=== PATIENT | male | born 1950 | race Native Hawaiian/Other Pacific Islander ===

== ENCOUNTER 2016-08-22 07:37 | Outpatient (CLI) | payer MEDICAID | END 2016-08-22 07:38 | disposition home or self-care (01) | DX: I10 Essential (primary) hypertension (principal); E78.5 Hyperlipidemia, unspecified; E11.9 Type 2 diabetes mellitus without complications ==

== ENCOUNTER 2016-11-17 07:41 | Outpatient (CLI) | payer MEDICAID | END 2016-11-17 07:42 | disposition home or self-care (01) | DX: E11.9 Type 2 diabetes mellitus without complications (principal) ==

== ENCOUNTER 2016-11-24 08:56 | Outpatient (CLI) | payer MEDICAID | END 2016-11-24 08:57 | disposition home or self-care (01) | DX: R39.11 Hesitancy of micturition (principal) ==

== ENCOUNTER 2017-02-24 11:02 | Outpatient (CLI) | payer MEDICAID ==
[2017-02-24 13:11] LABS: HEMOGLOBIN A1C 1.47 g/dL
== END 2017-02-24 11:03 | disposition home or self-care (01) ==
LOC: LAB.N 11:02
PROVIDERS: ATTEND Nurse Practitioner Gerontology
DX: E11.9 Type 2 diabetes mellitus without complications (principal)
CPT/HCPCS: 36415; 83036

== ENCOUNTER 2017-08-14 10:56 | Outpatient (CLI) | payer MEDICAID, MEDICARE ==
[2017-08-14 20:19] LABS: CALCIUM 9.6 mg/dL (8.5-10.3); CREATININE 0.9 mg/dL (0.6-1.2)
[2017-08-14 21:07] LABS: HEMOGLOBIN A1C 1.65 g/dL; HEMOGLOBIN A1C % 10.1 % (4.6-6.2)
== END 2017-08-14 10:57 | disposition home or self-care (01) ==
LOC: LAB.N 10:56
PROVIDERS: ATTEND Nurse Practitioner Gerontology
DX: E11.9 Type 2 diabetes mellitus without complications (principal); N40.0 Benign prostatic hyperplasia without lower urinary tract symptoms
CPT/HCPCS: 36415; 80048; 82043; 83036; 84153

== ENCOUNTER 2017-12-11 08:00 | Outpatient (CLI) | payer MEDICARE ==
[2017-12-11 14:50] LABS: HB2 TOTAL 19.5 g/dL; HEMOGLOBIN A1C 1.69 g/dL; HEMOGLOBIN A1C % 10.1 % (4.6-6.2)
== END 2017-12-11 08:01 | disposition home or self-care (01) ==
LOC: LAB.N 08:00
PROVIDERS: ATTEND Nurse Practitioner Gerontology
DX: E11.9 Type 2 diabetes mellitus without complications (principal)
CPT/HCPCS: 36415; 83036

== ENCOUNTER 2018-04-02 08:00 | Outpatient (CLI) | payer MEDICARE ==
[2018-04-02 12:24] LABS: ALBUMIN 4.3 g/dL (3.2-5.5); ALBUMIN/GLOBULIN RATIO 1.5 (1.0-2.2); ALKALINE PHOSPHATASE 64 IU/L (42-121); ALT ALANINE AMINOTRANSFERASE 23 IU/L (10-60); AST ASPARTATE AMINOTRANSFERASE 20 IU/L (10-42); BILIRUBIN,TOTAL 0.6 mg/dL (0.2-1.0); BUN - BLOOD UREA NITROGEN 15 mg/dL (6-20); CALCIUM 9.7 mg/dL (8.5-10.3); CARBON DIOXIDE - CO2 28 mmol/L (21-32); CHLORIDE 103 mmol/L (101-111); CHOLESTEROL 112 mg/dL; CREATININE 0.9 mg/dL (0.6-1.2); GFR - MDRD 85 (>89); GLUCOSE 178 mg/dL (70-100); HDL CHOLESTEROL 28 mg/dL; LDL CHOLESTEROL,CALCULATED 63 mg/dL; LDL/HDL RATIO 2.3 (<3.6); SODIUM 138 mmol/L (135-145); TOTAL PROTEIN 7.2 g/dL (6.7-8.2); VLDL CHOLESTEROL 21 mg/dL
[2018-04-02 12:35] LABS: PSA FREE 0.36 ng/mL (0.16-2.81); PSA TOTAL 2.24 ng/mL (0.000-2.000)
[2018-04-02 13:30] LABS: HB2 TOTAL 18.1 g/dL; HEMOGLOBIN A1C 1.43 g/dL; HEMOGLOBIN A1C % 9.4 % (4.6-6.2)
== END 2018-04-02 08:01 | disposition home or self-care (01) ==
LOC: LAB.N 08:00
PROVIDERS: ATTEND Nurse Practitioner Gerontology
DX: N40.0 Benign prostatic hyperplasia without lower urinary tract symptoms (principal); I10 Essential (primary) hypertension; E78.5 Hyperlipidemia, unspecified; E11.9 Type 2 diabetes mellitus without complications
CPT/HCPCS: 36415; 80053; 80061; 82043; 83036; 83721; 84154

== ENCOUNTER 2018-07-07 10:53 | Outpatient (CLI) | payer MEDICARE ==
[2018-07-07 19:23] LABS: HB2 TOTAL 18.9 g/dL; HEMOGLOBIN A1C 1.6 g/dL; HEMOGLOBIN A1C % 9.9 % (4.6-6.2)
== END 2018-07-07 10:54 | disposition home or self-care (01) ==
LOC: LAB.N 10:53
PROVIDERS: ATTEND Nurse Practitioner Gerontology
DX: E11.9 Type 2 diabetes mellitus without complications (principal)
CPT/HCPCS: 36415; 83036

== ENCOUNTER 2018-09-24 18:07 | Emergency (ER) | payer MEDICARE ==
[2018-09-24] MEDS ORDERED: ALBUTEROL NEB 2.5 MG/3 ML INH STA (21:05)
[2018-09-24] MEDS ORDERED: DEXAMETHASONE 10 MG/ML VIAL PO STA (21:05)
--- NOTE | 2018-09-24 21:05 | ED Physician Documentation ---
PD HPI URI - Stated complaint Stated Complaint: FLU SX - Chief complaint Chief Complaint: Resp - History obtained from History obtained from: Patient - Additional information Additional information: 68-year-old male presents the emergency department with almost 10 days of nasal congestion, cough, wheezing and general fatigue with fever. The patient's symptoms are steadily worsening the patient denies dyspnea on exertion or shortness of breath. No triggering factors. No relieving factors. No other associated symptoms Review of Systems Constitutional: reports: Fever, Chills, Myalgias Eyes: denies: Discharge Ears: denies: Ear pain Nose: denies: Congestion Throat: denies: Sore throat Cardiac: denies: Chest pain / pressure Respiratory: reports: Dyspnea, Wheezing GI: denies: Abdominal Pain Skin: denies: Rash Musculoskeletal: denies: Neck pain Immunocompromised: denies: Chemotherapy PD PAST MEDICAL HISTORY - Past Medical History Past Medical History: Yes Cardiovascular: Hypertension, High cholesterol Respiratory: None Neuro: None Endocrine/Autoimmune: Type 2 diabetes GI: None : None HEENT: None Psych: None Musculoskeletal: None Derm: None - Past Surgical History Past Surgical History: Yes General: Colonoscopy - Present Medications Home Medications: Ambulatory Orders Medication Instructions Recorded Confirmed Aspirin [Aspir 81] 81 mg PO DAILY 05/24/14 09/24/18 Glipizide 10 mg PO BID 05/24/14 09/24/18 Lisinopril 5 mg PO DAILY 05/24/14 09/24/18 Metformin HCl 1,000 mg PO BID 05/24/14 09/24/18 Albuterol Sulf [Ventolin Hfa 1 - 2 puffs INH Q4HR PRN #1 inhaler 09/24/18 Inhaler] Doxycycline Hyclate 100 mg PO BID #20 capsule 09/24/18 Insulin Aspart [NovoLOG] 5 unit SUBQ TIDWM 09/24/18 09/24/18 - Allergies Allergies/Adverse Reactions: Allergies Allergy/AdvReac Type Severity Reaction Status Date / Time No Known Drug Allergies Allergy Verified 09/24/18 18:21 - Social History Does the pt smoke?: No Smoking Status: Never smoker Does the pt drink ETOH?: No Does the pt have substance abuse?: No - Immunizations Immunizations are current?: No - POLST Patient has POLST: No PD ED PE NORMAL - General General: Alert and oriented X 3, No acute distress - HEENT HEENT: Atraumatic, PERRL, EOMI, Ears normal - Cardiac Cardiac: RRR, Strong equal pulses - Respiratory Respiratory: No respiratory distress. No: Clear bilaterally (Bilateral expiratory wheezing) - Derm Derm: Normal color - Extremities Extremities: No deformity - Neuro Neuro: Alert and oriented X 3, Normal speech - Psych Psych: Normal mood Results - Vitals Vitals: Vital Signs - 24 hr 09/24/18 09/24/18 18:20 20:34 Temperature 36.7 C Heart Rate 84 Respiratory 20 17 Rate Blood Pressure 143/86 H O2 Saturation 95 Oxygen O2 Source Room air - Rads (name of study) CXR Radiology: Final report received, See rad report (No evidence of focal pneumonia. Diffuse bilateral reticular interstitial opacities, which may represent changes from chronic fibrotic/interstitial lung disease. ) PD MEDICAL DECISION MAKING - ED course ED course: The patient's symptoms have been prolonged And are encroaching on 10 days, the patient has a history of lung disease and prior smoker. Given the duration of s ymptoms he will be started on a course of oral antibiotics. Presently, the patient appears appropriate for discharge and ongoing outpatient management. I discussed warning signs and recommended returning for any worsening or any concerns Departure - Departure Disposition: 01 Home, Self Care Clinical Impression: Acute bronchitis Qualifiers: Bronchitis organism: unspecified organism Qualified Code(s): J20.9 - Acute bronchitis, unspecified Condition: Good Instructions: ED Bronchitis Asthmatic Ch, ED Upper Resp Infec Abx Tx Follow-Up: Krissy Pan [employer] [Primary Care Provider] - Within 1 week (Please ask her to arrange for a follow-up chest x-ray once her symptoms resolved.) Prescriptions: Albuterol Sulf [Ventolin Hfa Inhaler] 1 - 2 puffs INH Q4HR PRN #1 inhaler PRN Reason: Shortness Of Air/Wheezing Doxycycline Hyclate 100 mg PO BID #20 capsule Comments: Please return to the emergency department for any worsening or any concerns
--- NOTE | 2018-09-24 21:11 | XRAY Report ---
Reason: cough, fever Procedure Date: 09/24/2018 Accession Number: [id number] / [id number] Procedure: XR - Chest 2 View X-Ray CPT Code: 66663 FULL RESULT: EXAM: CHEST RADIOGRAPHY EXAM DATE: 09/24/2018 08:48 PM. CLINICAL HISTORY: Cough, fever. COMPARISON: CHEST 2 VIEW PA/LAT 11/21/2014 7:30 PM. TECHNIQUE: 2 views. FINDINGS: Heart size is normal. Again seen are diffuse reticular interstitial opacities, which may represent changes from chronic fibrotic/interstitial lung disease. No focal consolidation. No pleural effusion or pneumothorax. Probable pectus excavatum deformity. IMPRESSION: No evidence of focal pneumonia. Diffuse bilateral reticular interstitial opacities, which may represent changes from chronic fibrotic/interstitial lung disease. RADIA
[2018-09-24] MEDS ORDERED: CHERRY SYRUP 10 ML UDC PO ONE (21:13)
[2018-09-24] MEDS ORDERED: DOXYCYCLINE 100 MG TABLET PO STA (21:15)
[2018-09-24] MEDS ORDERED: ALBUTEROL NEB 2.5 MG/3 ML INH ONE (21:30)
[2018-09-24 21:35] VITALS: BP 131/73
== END 2018-09-24 21:38 | disposition home or self-care (01) ==
LOC: ED 18:07
DX: J20.9 Acute bronchitis, unspecified (principal); Z87.891 Personal history of nicotine dependence; I10 Essential (primary) hypertension; E11.9 Type 2 diabetes mellitus without complications; Z79.4 Long term (current) use of insulin; Z79.82 Long term (current) use of aspirin
CPT/HCPCS: 71046; 94640; 94664; 99282; 99283; A9270

== ENCOUNTER 2018-10-15 08:00 | Outpatient (CLI) | payer MEDICARE ==
[2018-10-15 13:19] LABS: HB2 TOTAL 18.9 g/dL; HEMOGLOBIN A1C 1.65 g/dL; HEMOGLOBIN A1C % 10.1 % (4.6-6.2)
[2018-10-15 13:27] LABS: CHOL/HDL RATIO 4.2 (<5.0); CHOLESTEROL 133 mg/dL; HDL CHOLESTEROL 32 mg/dL; LDL CHOLESTEROL,CALCULATED 67 mg/dL; LDL/HDL RATIO 2.1 (<3.6); VLDL CHOLESTEROL 34 mg/dL
== END 2018-10-15 23:59 | disposition home or self-care (01) ==
LOC: LAB.N 08:00
PROVIDERS: ATTEND Nurse Practitioner Gerontology
DX: I10 Essential (primary) hypertension (principal); E11.9 Type 2 diabetes mellitus without complications; E78.5 Hyperlipidemia, unspecified
CPT/HCPCS: 36415; 80061; 83036; 83721

== ENCOUNTER 2019-01-27 08:00 | Outpatient (CLI) | payer MEDICARE ==
[2019-01-27 12:37] LABS: HB2 TOTAL 20.9 g/dL; HEMOGLOBIN A1C 1.62 g/dL; HEMOGLOBIN A1C % 9.2 % (4.6-6.2)
== END 2019-01-27 23:59 | disposition home or self-care (01) ==
LOC: LAB.N 08:00
PROVIDERS: ATTEND Nurse Practitioner Gerontology
DX: E11.9 Type 2 diabetes mellitus without complications (principal)
CPT/HCPCS: 36415; 83036

== ENCOUNTER 2019-07-18 09:12 | Outpatient (CLI) | payer MEDICARE ==
[2019-07-18 13:11] LABS: CALCIUM 9.8 mg/dL (8.5-10.3)
[2019-07-18 13:14] LABS: HEMOGLOBIN A1C 1.3 g/dL; HEMOGLOBIN A1C % 8.4 % (4.6-6.2)
== END 2019-07-18 23:59 | disposition home or self-care (01) ==
LOC: LAB.N 09:12
PROVIDERS: ATTEND Nurse Practitioner Gerontology
DX: E11.9 Type 2 diabetes mellitus without complications (principal)
CPT/HCPCS: 36415; 80048; 83036

== ENCOUNTER 2019-07-21 14:14 | Outpatient (CLI) | payer MEDICARE ==
--- NOTE | 2019-07-21 16:51 | XRAY Report ---
Reason: wheezing,cough Procedure Date: 07/21/2019 Accession Number: [id number] / [id number] Procedure: XRN - Chest 2 View X-Ray CPT Code: 45640 Final Report FULL RESULT: EXAM: CHEST RADIOGRAPHY EXAM DATE: 07/21/2019 02:31 PM. CLINICAL HISTORY: Wheezing,cough. COMPARISON: CHEST 2 VIEW 09/24/2018 8:33 PM. TECHNIQUE: 2 views. FINDINGS: Lungs/Pleura: Again seen are chronic appearing bilateral perihilar interstitial and reticular opacities. No focal opacities evident. No pleural effusion. No pneumothorax. Normal volumes. Mediastinum: Heart and mediastinal contours are unremarkable. Other: None. IMPRESSION: Chronic appearing bilateral perihilar interstitial and reticular opacities, suggestive of chronic interstitial lung disease versus interstitial/viral pneumonia. No focal pneumonia. RADIA
== END 2019-07-21 14:15 | disposition home or self-care (01) ==
LOC: DI.N 14:14
PROVIDERS: ATTEND Nurse Practitioner Gerontology
DX: R06.2 Wheezing (principal); R05 Cough
CPT/HCPCS: 71046

== ENCOUNTER 2019-12-22 07:00 | Outpatient (CLI) | payer MEDICARE ==
[2019-12-22 13:20] LABS: ALBUMIN 4.2 g/dL (3.2-5.5); ALBUMIN/GLOBULIN RATIO 1.3 (1.0-2.2); ALKALINE PHOSPHATASE 61 IU/L (42-121); ALT ALANINE AMINOTRANSFERASE 22 IU/L (10-60); AST ASPARTATE AMINOTRANSFERASE 17 IU/L (10-42); BILIRUBIN,TOTAL 0.9 mg/dL (0.2-1.0); BUN - BLOOD UREA NITROGEN 26 mg/dL (6-20); CALCIUM 9.6 mg/dL (8.5-10.3); CARBON DIOXIDE - CO2 23 mmol/L (21-32); CHLORIDE 101 mmol/L (101-111); CHOL/HDL RATIO 3.5 (<5.0); CHOLESTEROL 106 mg/dL; CREATININE 0.9 mg/dL (0.6-1.2); GLUCOSE 162 mg/dL (70-100); HDL CHOLESTEROL 30 mg/dL; LDL CHOLESTEROL,CALCULATED 55 mg/dL; LDL/HDL RATIO 1.8 (<3.6); SODIUM 134 mmol/L (135-145); TOTAL PROTEIN 7.5 g/dL (6.7-8.2); VLDL CHOLESTEROL 21 mg/dL
[2019-12-22 13:25] LABS: HB2 TOTAL 19.7 g/dL; HEMOGLOBIN A1C 1.62 g/dL; HEMOGLOBIN A1C % 9.7 % (4.6-6.2)
[2019-12-22 13:28] LABS: BASOPHILS # (AUTO) 0.1 10^3/uL (0.0-0.1); BASOPHILS % (AUTO) 0.6 %; EOSINOPHILS # (AUTO) 0.5 10^3/uL (0.0-0.7); EOSINOPHILS % (AUTO) 3.7 %; HGB - HEMOGLOBIN 18.1 g/dL (14.0-18.0); LYMPHOCYTES # (AUTO) 3.7 10^3/uL (1.5-3.5); LYMPHOCYTES % (AUTO) 30.1 %; MEAN CORPUSCULAR HEMOGLOBIN 29.2 pg (27.0-31.0); MEAN CORPUSCULAR HGB CONC 31.8 g/dL (32.0-36.0); MEAN CORPUSCULAR VOLUME 91.9 fL (80.0-94.0); MEAN PLATELET VOLUME 11.8 fL (7.4-11.4); MONOCYTES # (AUTO) 0.9 10^3/uL (0.0-1.0); MONOCYTES % (AUTO) 7.1 %; NEUTROPHILS # (AUTO) 7.1 10^3/uL (1.5-6.6); NEUTROPHILS % (AUTO) 57.8 %; PLT - PLATELET COUNT 245 10^3/uL (130-450); WHITE BLOOD COUNT 12.3 x10^3/uL (4.8-10.8)
[2019-12-22 13:40] LABS: CREATININE,URINE 31.9 mg/dL; MICROALBUM/CREATININE RATIO,UR 25.1 ug/mg (<30.0); MICROALBUMIN,URINE 0.8 mg/dL (0-300.0)
== END 2019-12-22 23:59 | disposition home or self-care (01) ==
LOC: LAB.WCP 07:00
PROVIDERS: ATTEND Family Medicine
DX: I10 Essential (primary) hypertension (principal); Z12.5 Encounter for screening for malignant neoplasm of prostate; E11.9 Type 2 diabetes mellitus without complications; E78.5 Hyperlipidemia, unspecified
CPT/HCPCS: 36415; 80053; 80061; 82043; 82570; 83036; 84443; 85025; G0103; 83721; 84153

== ENCOUNTER 2020-07-16 10:30 | Outpatient (CLI) | payer MEDICARE ==
[2020-07-16 12:20] LABS: CALCIUM 9.7 mg/dL (8.5-10.3); CREATININE 0.9 mg/dL (0.6-1.2)
[2020-07-16 12:53] LABS: HEMOGLOBIN A1c% 8.9 % (4.27-6.07)
== END 2020-07-16 10:31 | disposition home or self-care (01) ==
LOC: LAB.N 10:30
PROVIDERS: ATTEND Nurse Practitioner Family
DX: E11.9 Type 2 diabetes mellitus without complications (principal)
CPT/HCPCS: 36415; 80048; 83036

== ENCOUNTER 2020-09-24 19:36 | Observation (INO) | payer MEDICARE ==
[2020-09-24 20:06] LABS: BASOPHILS # (AUTO) 0.1 10^3/uL (0.0-0.1); BASOPHILS % (AUTO) 0.5 %; EOSINOPHILS # (AUTO) 0.4 10^3/uL (0.0-0.7); EOSINOPHILS % (AUTO) 2.4 %; HGB - HEMOGLOBIN 18.3 g/dL (14.0-18.0); LYMPHOCYTES # (AUTO) 4.9 10^3/uL (1.5-3.5); LYMPHOCYTES % (AUTO) 27.7 %; MEAN CORPUSCULAR HEMOGLOBIN 29.8 pg (27.0-31.0); MEAN CORPUSCULAR HGB CONC 32.7 g/dL (32.0-36.0); MEAN CORPUSCULAR VOLUME 91.1 fL (80.0-94.0); MEAN PLATELET VOLUME 10.8 fL (7.4-11.4); MONOCYTES # (AUTO) 1.2 10^3/uL (0.0-1.0); MONOCYTES % (AUTO) 6.6 %; NEUTROPHILS # (AUTO) 11.1 10^3/uL (1.5-6.6); NEUTROPHILS % (AUTO) 62.3 %; PLT - PLATELET COUNT 256 10^3/uL (130-450); RED BLOOD COUNT 6.15 10^6/uL (4.70-6.10); RED CELL DISTRIBUTION WIDTH 13.7 % (12.0-15.0); WHITE BLOOD COUNT 17.8 x10^3/uL (4.8-10.8)
[2020-09-24 20:12] LABS: ALBUMIN 4.4 g/dL (3.2-5.5); ALBUMIN/GLOBULIN RATIO 1.5 (1.0-2.2); BILIRUBIN,TOTAL 0.9 mg/dL (0.2-1.0); CALCIUM 9.6 mg/dL (8.5-10.3); TOTAL PROTEIN 7.4 g/dL (6.7-8.2)
--- NOTE | 2020-09-24 20:16 | XRAY Report ---
PROCEDURE: Chest 1 View X-Ray INDICATIONS: Chest pain TECHNIQUE: One view of the chest was acquired. COMPARISON: 07/21/2019 FINDINGS: Surgical changes and devices: None. Lungs and pleura: No pleural effusions or pneumothorax. Lungs are clear. Mediastinum: Mediastinal contours appear normal. Heart size is normal. Bones and chest wall: No suspicious bony lesions. Overlying soft tissues appear unremarkable. IMPRESSION: No acute cardiopulmonary abnormality. Reviewed by: Vinicius Anne on 09/24/2020 8:15 PM [facility] Approved by: Vinicius Anne on 09/24/2020 8:15 PM [facility] Station ID: [id number]
[2020-09-24] MEDS ORDERED: ASPIRIN CHEW 81 MG TABLET PO STA (21:38)
--- NOTE | 2020-09-24 21:39 | ED Physician Documentation ---
PD HPI CHEST PAIN - Stated complaint Stated Complaint: HIGH BP - Chief complaint Chief Complaint: Cardiac - History obtained from History obtained from: Patient - History of Present Illness Timing - onset: Today Timing - onset during: Rest Timing - duration: Days (1) Timing - details: Gradual onset Pain level max: 5 Pain level now: 0 Quality: Pressure, Tightness Location: Substernal Radiation: No: Jaw, Neck, Back, Abdominal, Left upper extremity, Right upper extremity Improved by: Nothing Worsened by: Other (nothing) Recently seen: Not recently seen Review of Systems Ten Systems: 10 systems reviewed and negative Constitutional: denies: Fever, Chills Throat: denies: Sore throat Cardiac: denies: Palpitations Respiratory: denies: Cough, Hemoptysis, Wheezing GI: denies: Vomiting, Diarrhea Skin: denies: Rash Musculoskeletal: denies: Neck pain, Back pain Neurologic: denies: Headache PD PAST MEDICAL HISTORY - Past Medical History Past Medical History: Yes Cardiovascular: Hypertension, High cholesterol Respiratory: None Neuro: None Endocrine/Autoimmune: Type 2 diabetes GI: None : None HEENT: None Psych: None Musculoskeletal: None Derm: None - Past Surgical History Past Surgical History: Yes General: Colonoscopy - Present Medications Home Medications: Ambulatory Orders Medication Instructions Recorded Confirmed Aspirin [Aspir 81] 81 mg PO DAILY 05/24/14 09/24/18 Glipizide 10 mg PO BID 05/24/14 09/24/18 Metformin HCl 1,000 mg PO BID 05/24/14 09/24/18 lisinopriL [Lisinopril] 5 mg PO DAILY 05/24/14 09/24/18 Albuterol Sulf [Ventolin Hfa 1 - 2 puffs INH Q4HR PRN #1 inhaler 09/24/18 Inhaler] Insulin Aspart [NovoLOG] 5 unit SUBQ TIDWM 09/24/18 09/24/18 Atorvastatin [Lipitor] 20 mg ORAL DAILY 09/24/20 09/24/20 Empagliflozin [Jardiance] 10 mg ORAL DAILY 09/24/20 09/24/20 - Allergies Allergies/Adverse Reactions: Allergies Allergy/AdvReac Type Severity Reaction Status Date / Time No Known Drug Allergies Allergy Verified 09/24/20 19:41 - Social History Does the pt smoke?: Yes Smoking Status: Current every day smoker Does the pt drink ETOH?: No Does the pt have substance abuse?: No - Immunizations Immunizations are current?: No - POLST Patient has POLST: No PD ED PE NORMAL - Vitals Vital signs reviewed: Yes - General General: Alert and oriented X 3, No acute distress - HEENT HEENT: PERRL, Moist mucous membranes - Neck Neck: Supple, no meningeal sign - Cardiac Cardiac: RRR, Strong equal pulses - Respiratory Respiratory: No respiratory distress, Clear bilaterally - Derm Derm: Warm and dry - Extremities Extremities: No edema - Neuro Neuro: Alert and oriented X 3 - Psych Psych: Normal mood, Normal affect Results - Vitals Vitals: Vital Signs - 24 hr 09/24/20 09/24/20 09/24/20 19:41 20:15 20:45 Temperature 36.9 C Heart Rate 102 H 103 H 99 Respiratory 19 18 16 Rate Blood Pressure 195/107 H 182/100 H 171/95 H O2 Saturation 100 99 09/24/20 21:33 Temperature Heart Rate 99 Respiratory 18 Rate Blood Pressure 153/92 H O2 Saturation 96 Oxygen O2 Source Room air - EKG (time done) 1948 Rate: Rate (enter#) (100) Rhythm: Sinus tachycardia [place]: Normal Intervals: Normal NC QRS: Normal Ischemia: Normal ST segments, Q waves (v2-3) - Labs Labs: Laboratory Tests 09/24/20 09/24/20 09/24/20 19:55 19:55 19:55 WBC 17.8 H RBC 6.15 H Hgb 18.3 H Hct 56.0 H MCV 91.1 MCH 29.8 MCHC 32.7 RDW 13.7 Plt Count 256 MPV 10.8 Neut # (Auto) 11.1 H Lymph # (Auto) 4.9 H [place] # (Auto) 1.2 H Eos # (Auto) 0.4 Baso # (Auto) 0.1 Absolute Nucleated RBC 0.00 Nucleated RBC % 0.0 Sodium 129 L Potassium 3.8 Chloride 97 L Carbon Dioxide 21 Anion Gap 11.0 BUN 17 Creatinine 1.0 Estimated GFR (MDRD) 74 L Glucose 259 H Calcium 9.6 Total Bilirubin 0.9 AST 21 ALT 24 Alkaline Phosphatase 65 Troponin I High Sens 8.6 Total Protein 7.4 Albumin 4.4 Globulin 3.0 Albumin/Globulin Ratio 1.5 Lipase 41 Urine Color Urine Clarity Urine pH Ur Specific [place] Urine Protein Urine Glucose (UA) Urine Ketones Urine Occult Blood Urine Nitrite Urine Bilirubin Urine Urobilinogen Ur Leukocyte Esterase Ur Microscopic Review Urine Culture Comments 09/24/20 21:56 WBC RBC Hgb Hct MCV MCH MCHC RDW Plt Count MPV Neut # (Auto) Lymph # (Auto) [place] # (Auto) Eos # (Auto) Baso # (Auto) Absolute Nucleated RBC Nucleated RBC % Sodium Potassium Chloride Carbon Dioxide Anion Gap BUN Creatinine Estimated GFR (MDRD) Glucose Calcium Total Bilirubin AST ALT Alkaline Phosphatase Troponin I High Sens Total Protein Albumin Globulin Albumin/Globulin Ratio Lipase Urine Color YELLOW Urine Clarity CLEAR Urine pH 6.0 Ur Specific [place] <=1.005 Urine Protein NEGATIVE Urine Glucose (UA) >=1000 H Urine Ketones NEGATIVE Urine Occult Blood NEGATIVE Urine Nitrite NEGATIVE Urine Bilirubin NEGATIVE Urine Urobilinogen 0.2 (NORMAL) Ur Leukocyte Esterase NEGATIVE Ur Microscopic Review NOT INDICATED Urine Culture Comments NOT INDICATED - Rads (name of study) cxr Radiology: Prelim report reviewed, EMP read contemporaneously, See rad report (No acute cardiopulmonary abnormality. ) PD MEDICAL DECISION MAKING - ED course Complexity details: reviewed results, re-evaluated patient, considered differential (No ST elevation NC, no aortic dissection, no PE, no tension pneumothorax, no aortic aneurysm), d/w patient ED course: Patient is a 70-year-old male who presents to the emergency department with chest pain intermittently for the past 4 hours, last for 5 to 30 minutes at a time. Not associated with exertion. Currently asymptomatic. No acute findings on EKG, though does have Q waves in V2 and V3. He is high risk for acute coronary syndrome. He has a history of hypertension, diabetes. Also appears to have polycythemia and chronic leukocytosis. Given IV fluids. Will place in observation for rule out NC. Discussed with Dr. Sherwood, hospitalist who accepts This document was made in part using voice recognition software. While efforts are made to proofread this document, sound alike and grammatical errors may occur. Departure - Departure Disposition: ED Place in Observation Clinical Impression: Polycythemia Chest pain Qualifiers: Chest pain type: unspecified Qualified Code(s): R07.9 - Chest pain, unspecified Leukocytosis Qualifiers: Leukocytosis type: unspecified Qualified Code(s): D72.829 - Elevated white blood cell count, unspecified Condition: Stable
[2020-09-24] MEDS ORDERED: SODIUM CHLORIDE 0.9% 1,000 ML IV STA (21:53)
[2020-09-24 21:59] LABS: BILIRUBIN,URINE NEGATIVE (NEGATIVE); GLUCOSE, URINE (UA) >=1000 mg/dL (NEGATIVE); KETONES,URINE (UA) NEGATIVE (NEGATIVE); LEUKOCYTE ESTERASE, URINE NEGATIVE (NEGATIVE); NITRITE,URINE NEGATIVE (NEGATIVE); OCCULT BLOOD,URINE NEGATIVE (NEGATIVE); PROTEIN,URINE NEGATIVE (NEGATIVE); UROBILINOGEN,URINE 0.2 (NORMAL) E.U./dL (NORMAL)
[2020-09-24 22:01] LABS: CLARITY,URINE CLEAR (CLEAR)
[2020-09-24] MEDS ORDERED: SODIUM CHLORIDE FLUSH 0.9% 10 ML SYRINGE IVP PRN (22:38)
[2020-09-24] MEDS ORDERED: ACETAMINOPHEN 325 MG TABLET PO PRN (22:38)
[2020-09-24] MEDS ORDERED: DEXTROSE 5%-0.9% NACL 1,000 ML IV SCH (23:00)
[2020-09-24 23:03] LABS: C. PNEUMONIAE- RESP PCR PANEL NOT DETECTED
--- NOTE | 2020-09-24 23:55 | HISTORY & PHYSICAL EXAMINATION ---
DATE OF SERVICE: 09/24/2020 Physician: Gabriela Sherwood MD HISTORY OF PRESENT ILLNESS: This is a 70-year-old male of descent who has a history of diabetes mellitus, on Jardiance and insulin, hypertension, on treatment, and high cholesterol. He remembers having a stress test about 20 years ago, but cannot remember for what reason. He presented to the emergency room today complaining of chest pain of new onset today that had lasted for 4 hours. The details are difficult to obtain, because of his accent. There was nothing that made it better or worse. It slowly resolved on its own and then he told the ER doctor it was on and off, lasting about 5 minutes each time and currently he has none. There is no dyspnea, leg edema, palpitations, or syncope complaint. He did have a bloody nose and stated that his blood pressure that he measured on his own was elevated recently. He is taking all his medications as prescribed. ALLERGIES: NONE. MEDICATIONS 1. Aspirin 81 mg daily. 2. Glipizide 10 mg b.i.d. 3. Metformin 1000 mg b.i.d. 4. NovoLog insulin 5 units subcutaneous t.i.d. with meals. 5. Jardiance 10 mg daily. 6. Lipitor 20 mg daily. 7. Albuterol inhaler p.r.n. 8. Lisinopril 5 mg daily. FAMILY HISTORY: No inherited diseases. SOCIAL HISTORY: The patient is a smoker of about 1/4 pack a day and has done that for many years, he rarely drinks any alcohol, possibly once every two months. There is no illicit drug use history. REVIEW OF SYSTEMS: A comprehensive review of systems was performed and the pertinent positives are listed, the rest are negative. PHYSICAL EXAM GENERAL: male who appears younger than his age. He is supine in bed and appears comfortable. VITAL SIGNS: Blood pressure 176/104 but on presentation, the blood pressure was 195/107 and heart rate is 99-102 in sinus rhythm. He is afebrile. Room air saturation 100%. HEENT: Unremarkable. NECK: No JVD in a supine position. CHEST: Clear. HEART: Normal heart sounds. No murmurs. ABDOMEN: Soft, nontender. Normal bowel sounds. EXTREMITIES: No clubbing, cyanosis or edema. NEUROLOGIC: Grossly intact. LABORATORY DATA: Sodium 129, potassium 3.8, BUN 17, creatinine 1.0, glucose 259. Normal liver tests. Troponin 8.6 and the second one just came back and is 9.1. Normal lipase. White blood count of 17.8. In looking back at his white counts over the past seven years, it has always been elevated on ER visits. The hemoglobin is 18.3, platelet count normal at 256. Urinalysis: Glucose was high, but otherwise unremarkable urinalysis. The [employer] test showed negative COVID. CHEST X-RAY: No active cardiopulmonary disease. EKG: Sinus tachycardia at a rate of 100, QS waves are present in leads V1, V2 and V3. QS waves have been present in the 2014 EKG and 2013 EKG. IMPRESSION/DIAGNOSES 1. Chest pain. 2. Abnormal EKG, suggestive of anterior scar. 3. Hypertension, poorly controlled. 4. Diabetes mellitus. 5. Hyponatremia, this is probably hypovolemic hyponatremia based on his high hemoglobin. 6. Leukocytosis. 7. Elevated hemoglobin, possibly from smoking vs dehydration. 8. Smoker. PLAN: Place the patient in Observation status on telemetry. Obtain an Echo to evaluate resting wall motion abnormality. Proceed to a treadmill stress test with nuclear myocardial perfusion imaging to evaluate chest pain. Continue with his blood pressure medication, lisinopril, and hold his metformin, Jardiance, but use insulin sliding scale coverage while here and a diabetic diet. Recheck CBC after hydration overnight. Nicotine patch will be ordered for his smoking habit. Check a lipid panel to treat aggressively per guidelines, in this diabetic patient. DEEP VENOUS THROMBOSIS PROPHYLAXIS: Pharmacotherapy with Lovenox. CODE STATUS: FULL CODE. ATTESTATION: Patient is expected to be discharged or transferred to another facility within 96 hours: Yes. cc: MEAGHAN Mathews TD: 09/24/2020 23:43 MILO
[2020-09-24] MEDS: FAMOTIDINE 20 MG TABLET PO SCH (23:57)
[2020-09-25] MEDS: INSULIN REGULAR HUMAN 300 UNIT/3 ML VIAL SUBQ SCH ×3 (00:12→12:19)
[2020-09-25] MEDS: SODIUM CHLORIDE FLUSH 0.9% 10 ML SYRINGE IVP SCH ×2 (00:16→08:32)
[2020-09-25 05:52] LABS: BUN - BLOOD UREA NITROGEN 16 mg/dL (6-20); CALCIUM 9.3 mg/dL (8.5-10.3); CARBON DIOXIDE - CO2 23 mmol/L (21-32); CHLORIDE 104 mmol/L (101-111); CHOL/HDL RATIO 3.3 (<5.0); CHOLESTEROL 98 mg/dL; CREATININE 0.9 mg/dL (0.6-1.2); GLUCOSE 156 mg/dL (70-100); HDL CHOLESTEROL 30 mg/dL; LDL CHOLESTEROL,CALCULATED 52 mg/dL; LDL/HDL RATIO 1.7 (<3.6); MAGNESIUM 2.1 mg/dL (1.7-2.8); VLDL CHOLESTEROL 16 mg/dL
[2020-09-25] MEDS ORDERED: ALBUTEROL NEB 2.5 MG/3 ML INH PRN (08:16)
[2020-09-25 08:25] LABS: BASOPHILS # (AUTO) 0.1 10^3/uL (0.0-0.1); BASOPHILS % (AUTO) 0.6 %; EOSINOPHILS # (AUTO) 0.4 10^3/uL (0.0-0.7); EOSINOPHILS % (AUTO) 3.5 %; HGB - HEMOGLOBIN 17.9 g/dL (14.0-18.0); LYMPHOCYTES # (AUTO) 3.3 10^3/uL (1.5-3.5); LYMPHOCYTES % (AUTO) 28.5 %; MEAN CORPUSCULAR HEMOGLOBIN 29.2 pg (27.0-31.0); MEAN CORPUSCULAR HGB CONC 32.4 g/dL (32.0-36.0); MEAN PLATELET VOLUME 10.5 fL (7.4-11.4); MONOCYTES # (AUTO) 0.8 10^3/uL (0.0-1.0); MONOCYTES % (AUTO) 6.9 %; NEUTROPHILS % (AUTO) 60.2 %; PLT - PLATELET COUNT 245 10^3/uL (130-450); RED BLOOD COUNT 6.13 10^6/uL (4.70-6.10); RED CELL DISTRIBUTION WIDTH 13.6 % (12.0-15.0); WHITE BLOOD COUNT 11.7 x10^3/uL (4.8-10.8)
[2020-09-25] MEDS: FAMOTIDINE 20 MG TABLET PO SCH (08:31)
[2020-09-25] MEDS: ENOXAPARIN 40 MG/0.4 ML SYRINGE SUBQ SCH ×2 (08:32→08:40)
[2020-09-25] MEDS ORDERED: NICOTINE 7 MG PATCH TOP SCH (09:00)
[2020-09-25] MEDS ORDERED: lisinopriL 5 MG TABLET PO SCH (09:00)
[2020-09-25] MEDS ORDERED: ASPIRIN EC 81 MG TABLET PO SCH ×2 (09:00)
[2020-09-25 11:15] LABS: HEMOGLOBIN A1c% 8.8 % (4.27-6.07)
[2020-09-25 11:21] LABS: HEMOGLOBIN A1c% 8.8 % (4.27-6.07)
--- NOTE | 2020-09-25 15:36 | Nuclear Medicine Report ---
PROCEDURE: Rest and exercise myocardial perfusion SPECT with gated imaging and ejection fraction INDICATIONS: Chest pain. RADIOPHARMACEUTICAL: 17.7 mCi Tc-99m Myoview IV at rest and 45.7 mCi Tc-99m Myoview IV at peak exerc ise. [id number] was performed. TECHNIQUE: Radiopharmaceutical was injected at peak stress test, and also at rest. SPECT images wer e obtained. SPECT myocardial perfusion images were displayed in short axis, horizontal long axis, an d vertical long axis views. Gated images were reviewed using Auto[employer] software. COMPARISON: None available. FINDINGS: Raw data: There is good myocardial labeling by radiotracer. No significant motion artifacts. Lung- to-heart ratio is 0.35 (normal is less than 0.38 for tetrafosmin tracer). Left ventricle function: Gated images demonstrate normal left ventricle wall thickening. No segment al wall motion abnormality. No transient ischemic dilation; TID is 1.03 (normal less than 1.3). The left ventricle resting end-diastolic volume is normal. Left ventricle stress ejection fraction is 7 9%; normal values are above 45%. Myocardial perfusion: There is normal distribution of activity in the left and right ventricular heron cardium. No fixed or reversible perfusion defects. IMPRESSION: 1. Normal myocardial perfusion images. No perfusion defect to suggest myocardial ischemia or infarct. 2. Normal left ventricular volume and systolic function. 3. Please correlate with stress EKG report. PQRS ATTESTATIONS: Measure 322 - Is this imaging test primarily performed on a low-risk surgery patient for preoperative evaluation within 30 days preceding their low-risk non-cardiac surgery? Low-risk surgery is defined as cardiac or myocardial infarction less than 1%, including (but not limited to) endoscopic pr ocedures, superficial procedures, cataract surgery, and excisional breast surgery: Answer: No Measure 323 - Is this imaging test performed primarily for the monitoring of an asymptomatic patient who had percutaneous coronary intervention on the visit date or within 2 years of the visit date? An swer: No Measure 324 - Is this imaging test performed primarily for the initial detection and risk assessment on an asymptomatic, low coronary heart disease patient? Low CHD risk definition = clinicians should consider the maximum number of available patient factors used to estimate risk based on [place] (A TP III criteria), typically age, gender, diabetes, smoking status, and use of blood pressure medicati on, and integrate age appropriate estimates for missing elements, such as LDL or standard blood press ure. Answer: No Reviewed by: Bernardo Parker MD on 09/25/2020 3:34 PM PST Approved by: Bernardo Parker MD on 09/25/2020 3:34 PM PST Station ID: [id number]
[2020-09-25 16:03] VITALS: BP 134/69
--- NOTE | 2020-09-25 16:03 | Discharge Plan ---
Discharge Plan Problem Reviewed?: Yes Disposition: Home, Self Care Condition: Stable Diet: Diabetic Activity Restrictions: Activity as Tolerated Shower Restrictions: No (fall precaution) Instruction Topics: ED Chest Pain Atypical Unkn Cause Health Concerns: chest pain Plan of Treatment: your chest pain is resolved. All your studies are unremarkable including troponin lab study, EKG, ECHO and stress test. Care Goals: stabilization and improvement/resolve of your medical conditions Assessment: discussed the care plan and test results with you, you understood Additional Instructions or Follow Up instructions: You may followup with your PCP in one to two weeks, resume your home meds. Should your symptoms return or worsen, you may return to the ER or call 911 for help No Smoking: If you smoke, Please STOP! Call for help.
--- NOTE | 2020-09-25 16:07 | DISCHARGE SUMMARY ---
Discharge Summary Admit Date: 09/24/20 Discharge Date: 09/25/20 Discharging Provider: Gadiel Dickinson Condition at Discharge: Stable Discharge Disposition: 01 Home, Self Care Discharge Facility Name: home - DIAGNOSES Discharge Diagnoses with Status of Each Condition: 1, chest pain Resolved, patient reported he has no more chest pain. Patient's stress test, ech o study, troponin laboratory studies, EKG all show unremarkable. 2, Diabetes A1c 8.8, stable, resume patient home medication 3, HTN Stable 4, polycythemia and chronic leukocytosis Stable. HGB 17.9. 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 Treviño's ER note on 09/24/20 Patient is a 70-year-old male who presents to the emergency department with chest pain intermittently for the past 4 hours, last for 5 to 30 minutes at a time. Not associated with exertion. Currently asymptomatic. No acute findings on EKG, though does have Q waves in V2 and V3. He is high risk for acute coronary syndrome. He has a history of hypertension, diabetes. Also appears to have polycythemia and chronic leukocytosis. Given IV fluids. Will place in observation for rule out LA. - HOSPITAL COURSE Hospital Course: Patient was admitted for chest pain. Patient reported he has no more chest pain in the hospital. Patient had a stress test, EKG, troponin I continuing study, echo study, All show unremarkable. Patient Was discharged at the hemodynamic stable condition - ALLERGIES Allergies/Adverse Reactions: Allergies Allergy/AdvReac Type Severity Reaction Status Date / Time No Known Drug Allergies Allergy Verified 09/24/20 19:41 - MEDICATIONS Home Medications: Ambulatory Orders Medication Instructions Recorded Confirmed Aspirin [Aspir 81] 81 mg PO DAILY 05/24/14 09/25/20 Glipizide 20 mg PO BID 05/24/14 09/25/20 Metformin HCl 1,000 mg PO BID 05/24/14 09/25/20 lisinopriL [Lisinopril] 5 mg PO DAILY 05/24/14 09/24/18 Albuterol Sulf [Ventolin Hfa 1 - 2 puffs INH Q4HR PRN #1 inhaler 09/24/18 Inhaler] Insulin Aspart [NovoLOG] 5 unit SUBQ TIDWM 09/24/18 09/24/18 Atorvastatin [Lipitor] 20 mg ORAL QPM 09/24/20 09/25/20 Empagliflozin [Jardiance] 10 mg ORAL DAILY 09/24/20 09/25/20 Insulin Glargine,Hum.rec.anlog 10 unit SUBQ DAILY 09/25/20 09/25/20 [Basaglar Hernandopen U-100] metFORMIN [Glucophage] 500 mg PO QDLUNCH 09/25/20 09/25/20 - PHYSICAL EXAM AT DISCHARGE General Appearance: positive: No acute distress, Alert. negative: Lethargic Eyes Bilateral: positive: Normal inspection, PERRL, No lid inflammation ENT: positive: ENT inspection nml, No signs of dehydration. negative: Purulent nasal drainage Neck: positive: Nml inspection, Trachea midline. negative: Thyromegaly, Tracheal deviation Respiratory: positive: Chest non-tender, No respiratory distress. negative: Wh eezes, Rales, Rhonchi Cardiovascular: positive: Regular rate & rhythm, No murmur. negative: Tachycardia, Bradycardia, Systolic murmur, Diastolic murmur Peripheral Pulses: positive: 2+ Abdomen: positive: Non-tender, Nml bowel sounds, No distention. negative: Tenderness, Guarding, Rebound Back: positive: Nml inspection. negative: CVA tenderness (R), CVA tenderness (L) Skin: positive: Color nml, Warm, Dry. negative: Cyanosis, Diaphoresis, Pallor Extremities: positive: Non-tender, Full ROM, Nml appearance. negative: Calf tenderness Neurologic/Psychiatric: positive: Oriented x3, Motor nml, Sensation nml, Mood/affect nml. negative: Weakness, Sensory loss, Facial droop, Slurred/abnml speech, Depressed mood/affect - LABS Result Diagrams: 09/25/20 08:15 09/25/20 05:20 - FOLLOW UP Follow Up: your chest pain is resolved. All your studies are unremarkable including troponin lab study, EKG, ECHO and stress test. You may followup with your PCP in one to two weeks, resume your home meds. Advise you quit cigarette smoking, Follow-up with your PCP and warehouse logistics coordinator as outpatient Should your symptoms return or worsen, you may return to the ER or call 911 for help - TIME SPENT Time Spent in Discharge (Minutes): 30
[2020-09-25] MEDS ORDERED: INSULIN ASPART 300 UNIT/3 ML PEN SUBQ SCH (17:00)
[2020-09-25] MEDS ORDERED: ATORVASTATIN 10 MG TABLET PO SCH (23:00)
--- NOTE | 2020-09-26 10:00 | CARDIAC PROCEDURE NOTE ---
DATE OF SERVICE: 09/25/2020 Physician: Gabriela Sherwood MD INDICATION: Chest pain. CARDIAC RISK FACTORS: Male gender, hypertension, hyperlipidemia, diabetes mellitus, smoker. DESCRIPTION OF PROCEDURE: After signing informed consent, the patient underwent a Tereso-protocol treadmill stress test with nuclear myocardial perfusion imaging. RESTING HEART RATE: 75. PEAK HEART RATE: 143 (94% predicted maximum heart rate for age). RESTING BLOOD PRESSURE: 127/82. PEAK BLOOD PRESSURE: 186/77. The patient exercised for 7 minutes and 44 seconds on a Tereso-protocol treadmill stress test. He achieved a peak heart rate of 143 (94% PMHR) and 9.73 METs. The patient had no chest pain with exercise. He had mild shortness of breath, but rated his perceived exertion at 18/20 on the Taryn scale at peak. Oxygen saturation was 94-98% on room air throughout the test. RESTING EKG: Normal sinus rhythm, left atrial enlargement, QS waves present in V1 and V2, early repolarization. EKG AT PEAK: Scooping ST segments in leads II, III, aVF, and V6 and a vertical QRS axis develops (which suggests COPD). SUMMARY: 1. Fair exercise tolerance. 2. No chest pain developed with exercise. 3. Abnormal resting EKG. 4. Nonspecific EKG changes develop after exercise for ischemia; however, a new vertical axis is seen consistent with COPD. 5. Nuclear images reported separately and showed: Normal tracer uptake, no areas of ischemia or scar. IMPRESSION: Normal stress test. TD: 09/25/2020 12:11 [facility]
== END 2020-09-25 16:26 | disposition home or self-care (01) ==
LOC: ED 19:36 → MS2 22:38
PROVIDERS: ADMIT Internal Medicine; ATTEND Nurse Practitioner Gerontology
DX: R07.9 Chest pain, unspecified (principal); E87.1 Hypo-osmolality and hyponatremia; I10 Essential (primary) hypertension; D75.1 Secondary polycythemia; D72.829 Elevated white blood cell count, unspecified; E11.9 Type 2 diabetes mellitus without complications; R94.31 Abnormal electrocardiogram [ECG] [EKG]; E78.5 Hyperlipidemia, unspecified; Z20.822 Contact with and (suspected) exposure to COVID-19; F17.210 Nicotine dependence, cigarettes, uncomplicated; Z79.82 Long term (current) use of aspirin; Z79.4 Long term (current) use of insulin; Z79.51 Long term (current) use of inhaled steroids; Z79.899 Other long term (current) drug therapy
CPT/HCPCS: 36415; 71045; 78452; 80048; 80053; 80061; 81003; 83036; 83690; 83735; 84484; 85025; 87631; 93005; 93017; 93306; 96360; 96361; 99284; 99285; A9270; A9500; G0378; J1650; J1815; 0202U; 81001; 83721; 87086

== ENCOUNTER 2020-10-29 08:00 | Outpatient (CLI) | payer MEDICARE ==
[2020-10-29 12:16] LABS: ESTIMATED AVERAGE GLUCOSE 203 mg/dL (70-100); HEMOGLOBIN A1c% 8.7 % (4.27-6.07)
[2020-10-29 12:23] LABS: CALCIUM 9.7 mg/dL (8.5-10.3); CREATININE 0.9 mg/dL (0.6-1.2); POTASSIUM 4.4 mmol/L (3.5-5.0)
== END 2020-10-29 23:59 | disposition home or self-care (01) ==
LOC: LAB.WCP 08:00
PROVIDERS: ATTEND Nurse Practitioner Family
DX: E11.9 Type 2 diabetes mellitus without complications (principal)
CPT/HCPCS: 36415; 80048; 83036

== ENCOUNTER 2020-12-21 15:36 | Outpatient (CLI) | payer MEDICARE | END 2020-12-21 15:37 | disposition home or self-care (01) | LOC: COV 15:36 | PROVIDERS: ATTEND Family Medicine | DX: Z20.822 Contact with and (suspected) exposure to COVID-19 (principal) ==

== ENCOUNTER 2021-01-28 08:00 | Outpatient (CLI) | payer MEDICARE ==
[2021-01-28 12:01] LABS: CALCIUM 9.7 mg/dL (8.5-10.3); CREATININE 0.9 mg/dL (0.6-1.2); POTASSIUM 4.5 mmol/L (3.5-5.0)
[2021-01-28 12:08] LABS: ESTIMATED AVERAGE GLUCOSE 189 mg/dL (70-100); HEMOGLOBIN A1c% 8.2 % (4.27-6.07)
== END 2021-01-28 23:59 | disposition home or self-care (01) ==
LOC: LAB.WCP 08:00
PROVIDERS: ATTEND Nurse Practitioner Family
DX: E11.9 Type 2 diabetes mellitus without complications (principal)
CPT/HCPCS: 36415; 80048; 83036

== ENCOUNTER 2021-05-15 08:00 | Outpatient (CLI) | payer MEDICARE ==
[2021-05-15 11:49] LABS: BASOPHILS # (AUTO) 0.1 10^3/uL (0.0-0.1); BASOPHILS % (AUTO) 0.7 %; EOSINOPHILS # (AUTO) 0.4 10^3/uL (0.0-0.7); EOSINOPHILS % (AUTO) 3.4 %; HGB - HEMOGLOBIN 19.2 g/dL (14.0-18.0); LYMPHOCYTES # (AUTO) 3.4 10^3/uL (1.5-3.5); LYMPHOCYTES % (AUTO) 30.3 %; MEAN CORPUSCULAR HGB CONC 33.1 g/dL (32.0-36.0); MEAN CORPUSCULAR VOLUME 90.5 fL (80.0-94.0); MEAN PLATELET VOLUME 11.6 fL (7.4-11.4); MONOCYTES # (AUTO) 0.7 10^3/uL (0.0-1.0); MONOCYTES % (AUTO) 6.1 %; NEUTROPHILS # (AUTO) 6.5 10^3/uL (1.5-6.6); NEUTROPHILS % (AUTO) 58.9 %; PLT - PLATELET COUNT 241 10^3/uL (130-450); RED BLOOD COUNT 6.41 10^6/uL (4.70-6.10); RED CELL DISTRIBUTION WIDTH 13.3 % (12.0-15.0)
[2021-05-15 12:16] LABS: ALBUMIN 4.7 g/dL (3.2-5.5); ALBUMIN/GLOBULIN RATIO 1.7 (1.0-2.2); ALKALINE PHOSPHATASE 69 IU/L (42-121); ALT ALANINE AMINOTRANSFERASE 21 IU/L (10-60); AST ASPARTATE AMINOTRANSFERASE 16 IU/L (10-42); BILIRUBIN,TOTAL 0.8 mg/dL (0.2-1.0); BUN - BLOOD UREA NITROGEN 14 mg/dL (6-20); CALCIUM 9.8 mg/dL (8.5-10.3); CARBON DIOXIDE - CO2 27 mmol/L (21-32); CHLORIDE 101 mmol/L (101-111); CHOL/HDL RATIO 4.9 (<5.0); CHOLESTEROL 156 mg/dL; CREATININE 0.9 mg/dL (0.6-1.2); GFR - MDRD 84 (>89); GLUCOSE 295 mg/dL (70-100); HDL CHOLESTEROL 32 mg/dL; LDL CHOLESTEROL,CALCULATED 97 mg/dL; POTASSIUM 4.2 mmol/L (3.5-5.0); SODIUM 137 mmol/L (135-145); TOTAL PROTEIN 7.4 g/dL (6.7-8.2); TRIGLYCERIDES 134 mg/dL; VLDL CHOLESTEROL 27 mg/dL
[2021-05-15 12:22] LABS: THYROID STIMULATING HORMONE 0.94 uIU/mL (0.34-5.60)
[2021-05-15 12:45] LABS: ESTIMATED AVERAGE GLUCOSE 249 mg/dL (70-100); HEMOGLOBIN A1c% 10.3 % (4.27-6.07)
== END 2021-05-15 23:59 | disposition home or self-care (01) ==
LOC: LAB.WCP 08:00
PROVIDERS: ATTEND Family Medicine
DX: I10 Essential (primary) hypertension (principal); E78.5 Hyperlipidemia, unspecified; E11.9 Type 2 diabetes mellitus without complications; Z12.5 Encounter for screening for malignant neoplasm of prostate
CPT/HCPCS: 36415; 80053; 80061; 83036; 84443; 85025; G0103; 83721; 84153

== ENCOUNTER 2021-06-07 10:04 | Outpatient (CLI) | payer MEDICARE | END 2021-06-07 10:05 | disposition home or self-care (01) | LOC: LAB 10:04 | PROVIDERS: ATTEND Internal Medicine | DX: D75.1 Secondary polycythemia (principal) | CPT/HCPCS: 36415; 81270; 81599; 82375; 82668 ==

== ENCOUNTER 2021-08-27 06:23 | Outpatient (CLI) | payer MEDICARE ==
[2021-08-27] MEDS ORDERED: iohexoL-300 100 ML VIAL ONE (07:06)
[2021-08-27] MEDS ORDERED: iohexoL-300 100 ML VIAL IVP ONE (08:59)
--- NOTE | 2021-08-27 10:10 | CT Report ---
PROCEDURE: CHEST W INDICATIONS: SPLENOMEGALY, POLYCYTHEMIA CONTRAST: Iohexol, 100 mL TECHNIQUE: After the administration of intravenous contrast, 1 mm axial images were acquired from the pulmonary apices through the posterior costophrenic angles. Axial 5 mm soft tissue kernel reconstructions were performed as well as 8 mm axial MIP and coronal and sagittal 5 mm reformations. For radiation dose reduction, the following was used: automated exposure control, adjustment of mA and/or kV according to patient size. COMPARISON: CT angiogram of the chest dated 05/24/2014. FINDINGS: Image quality: Excellent. Lungs and pleura: 2 mm pulmonary nodule, right lung, image 117/4, stable compared to the previous st udy, consistent with benign nodule, present on previous image 43/6. 3 mm nodule, right lung, image 11 8/4 stable, on previous image 74/6. No acute air space opacities. No pleural effusions or pneumothor ax. Central and peripheral airways are patent and normal in caliber. Mediastinum: Heart size is normal. No pericardial effusion. No mediastinal or hilar adenopathy by size criteria. Thoracic aorta and central pulmonary arteries are normal in size. Mild diffuse esopha geal wall thickening. Possible diffuse esophagitis. No hiatal hernia. Bones and chest wall: No suspicious bony lesions. No vertebral body compression fractures. No axil jatin or supraclavicular adenopathy by size criteria. The thyroid is normal in size and there are no incidental findings.. Abdomen: Visualized upper abdominal solid organs appear normal. Upper abdominal bowel loops are nor mal in caliber. IMPRESSION: 1. Normal size spleen. 2. No evidence of malignancy in the chest. No adenopathy in the chest. 3. Stable tiny benign pulmonary nodules. 4. No evidence of acute pulmonary process. CLINICAL RECOMMENDATION STATEMENTS: In patients <35 years with an ITN detected on CT, MRI, or extrathyroidal ultrasound, the Committee re commends further evaluation with dedicated thyroid ultrasound if the nodule is "e1 cm and has no susp icious imaging features, and if the patient has normal life expectancy. In patients "e35 years with an ITN detected on CT, MRI, or extrathyroidal ultrasound, the Committee r ecommends further evaluation with dedicated thyroid ultrasound if the nodule is "e1.5 cm and has no s uspicious imaging features, and if the patient has normal life expectancy. (ACR, 2014) Reviewed by: Miguel Elder MD on 08/27/2021 10:09 AM PST Approved by: Miguel Elder MD on 08/27/2021 10:09 AM PST Station ID: [id number]
--- NOTE | 2021-08-27 16:09 | Ultrasound Report ---
PROCEDURE: Abdomen Complete INDICATIONS: SPLENOMEGALY, POLYCYTHEMIA TECHNIQUE: Real-time scanning was performed of the abdominal and retroperitoneal organs, with image documentatio n. COMPARISON: None. FINDINGS: Liver: Liver is normal in size and homogeneous in echotexture. Gallbladder: Normally distended gallbladder without shadowing gallstone, sludge, wall thickening, or pericholecystic fluid. Biliary ducts: Intrahepatic bile ducts are non-dilated. Extrahepatic bile duct caliber measures 5 m m. Normal is 6-7 mm or less in diameter, or 10 mm or less post-cholecystectomy. Pancreas: Visualized portions of the pancreas are sonographically normal. Spleen: Spleen is normal in size and homogeneous in echotexture, measuring up to 8 cm in long axis. Kidneys: Simple cyst in the right upper pole measuring 1.7 cm, of no clinical significance. Kidneys are otherwise normal in size and echotexture. Right kidney measures 11.7 cm long; left kidney measur es 10.9 cm long. No hydronephrosis or nephrolithiasis. No solid masses. Aorta: Visualized aorta is normal in caliber at less than 3 cm. Iliacs: Proximal common iliac arteries are normal in caliber at less than 2.5 cm. IVC: Intrahepatic inferior vena cava is patent. Miscellaneous: No free abdominal fluid. IMPRESSION: No splenomegaly. Normal abdominal ultrasound otherwise. Reviewed by: Denis Varma MD on 08/27/2021 4:07 PM PST Approved by: Denis Varma MD on 08/27/2021 4:07 PM PST Station ID: [id number]
== END 2021-08-27 06:24 | disposition home or self-care (01) ==
LOC: DI 06:23
PROVIDERS: ATTEND Internal Medicine
DX: D75.1 Secondary polycythemia (principal); R16.1 Splenomegaly, not elsewhere classified; R91.8 Other nonspecific abnormal finding of lung field
CPT/HCPCS: 71260; 76700; Q9967

== ENCOUNTER 2021-11-27 14:14 | Outpatient (CLI) | payer MEDICARE ==
[2021-11-27 18:07] LABS: BUN - BLOOD UREA NITROGEN 24 mg/dL (6-20); CALCIUM 9.3 mg/dL (8.5-10.3); CARBON DIOXIDE - CO2 24 mmol/L (21-32); CHLORIDE 105 mmol/L (101-111); CHOL/HDL RATIO 4.8 (<5.0); CHOLESTEROL 148 mg/dL; CREATININE 0.9 mg/dL (0.6-1.2); GFR - MDRD 84 (>89); GLUCOSE 177 mg/dL (70-100); HDL CHOLESTEROL 31 mg/dL; LDL CHOLESTEROL,CALCULATED 50 mg/dL; LDL/HDL RATIO 1.6 (<3.6); POTASSIUM 4.1 mmol/L (3.5-5.0); SODIUM 138 mmol/L (135-145); TRIGLYCERIDES 337 mg/dL; VLDL CHOLESTEROL 67 mg/dL
[2021-11-27 18:09] LABS: MICROALBUM/CREATININE RATIO,UR 34.8 ug/mg (<30.0); MICROALBUMIN,URINE 1.6 mg/dL (0-300.0)
== END 2021-11-27 14:15 | disposition home or self-care (01) ==
LOC: LAB.N 14:14
PROVIDERS: ATTEND Internal Medicine
DX: E11.9 Type 2 diabetes mellitus without complications (principal)
CPT/HCPCS: 36415; 80048; 80061; 81599; 82043; 82570; 83036; 83721

== ENCOUNTER 2022-02-25 07:34 | Outpatient (CLI) | payer MEDICARE ==
[2022-02-25 13:09] LABS: BASOPHILS # (AUTO) 0.1 10^3/uL (0.0-0.1); BASOPHILS % (AUTO) 0.8 %; EOSINOPHILS # (AUTO) 0.7 10^3/uL (0.0-0.7); EOSINOPHILS % (AUTO) 5.6 %; HCT - HEMATOCRIT 57.7 % (42.0-52.0); HGB - HEMOGLOBIN 18.8 g/dL (14.0-18.0); LYMPHOCYTES # (AUTO) 4.3 10^3/uL (1.5-3.5); LYMPHOCYTES % (AUTO) 33.3 %; MEAN CORPUSCULAR HGB CONC 32.6 g/dL (32.0-36.0); MEAN CORPUSCULAR VOLUME 92.2 fL (80.0-94.0); MEAN PLATELET VOLUME 10.2 fL (7.4-11.4); MONOCYTES # (AUTO) 0.7 10^3/uL (0.0-1.0); MONOCYTES % (AUTO) 5.7 %; NEUTROPHILS # (AUTO) 6.9 10^3/uL (1.5-6.6); NEUTROPHILS % (AUTO) 53.7 %; PLT - PLATELET COUNT 356 10^3/uL (130-450); RED BLOOD COUNT 6.26 10^6/uL (4.70-6.10); RED CELL DISTRIBUTION WIDTH 13.3 % (12.0-15.0); WHITE BLOOD COUNT 12.8 x10^3/uL (4.8-10.8)
[2022-02-25 13:31] LABS: ALBUMIN 4.4 g/dL (3.2-5.5); ALBUMIN/GLOBULIN RATIO 1.4 (1.0-2.2); ALKALINE PHOSPHATASE 67 IU/L (42-121); ALT ALANINE AMINOTRANSFERASE 16 IU/L (10-60); AST ASPARTATE AMINOTRANSFERASE 13 IU/L (10-42); BILIRUBIN,TOTAL 0.6 mg/dL (0.2-1.0); BUN - BLOOD UREA NITROGEN 21 mg/dL (6-20); CALCIUM 9.9 mg/dL (8.5-10.3); CARBON DIOXIDE - CO2 28 mmol/L (21-32); CHLORIDE 100 mmol/L (101-111); CHOL/HDL RATIO 3.8 (<5.0); CHOLESTEROL 135 mg/dL; CREATININE 0.9 mg/dL (0.6-1.2); GFR - MDRD 84 (>89); GLUCOSE 179 mg/dL (70-100); HDL CHOLESTEROL 36 mg/dL; LDL CHOLESTEROL,CALCULATED 72 mg/dL; POTASSIUM 4.5 mmol/L (3.5-5.0); SODIUM 136 mmol/L (135-145); TOTAL PROTEIN 7.5 g/dL (6.7-8.2); TRIGLYCERIDES 137 mg/dL; VLDL CHOLESTEROL 27 mg/dL
[2022-02-25 13:36] LABS: CREATININE,URINE 63.4 mg/dL; MICROALBUM/CREATININE RATIO,UR 25.2 ug/mg (<30.0); MICROALBUMIN,URINE 1.6 mg/dL (0-300.0)
[2022-02-25 13:38] LABS: THYROID STIMULATING HORMONE 0.9 uIU/mL (0.34-5.60)
[2022-02-25 14:35] LABS: ESTIMATED AVERAGE GLUCOSE 209 mg/dL (70-100); HEMOGLOBIN A1c% 8.9 % (4.27-6.07)
== END 2022-02-25 07:35 | disposition home or self-care (01) ==
LOC: LAB.N 07:34
PROVIDERS: ATTEND Family Medicine
DX: I10 Essential (primary) hypertension (principal); F17.210 Nicotine dependence, cigarettes, uncomplicated; D75.1 Secondary polycythemia; E78.5 Hyperlipidemia, unspecified; E11.9 Type 2 diabetes mellitus without complications
CPT/HCPCS: 36415; 80053; 80061; 82043; 82570; 83036; 83721; 84443; 85025

== ENCOUNTER 2022-07-28 07:30 | Outpatient (CLI) | payer MEDICARE ==
[2022-07-28 12:00] LABS: BASOPHILS # (AUTO) 0.1 10^3/uL (0.0-0.1); BASOPHILS % (AUTO) 0.6 %; EOSINOPHILS # (AUTO) 0.4 10^3/uL (0.0-0.7); EOSINOPHILS % (AUTO) 3.9 %; LYMPHOCYTES # (AUTO) 3.7 10^3/uL (1.5-3.5); LYMPHOCYTES % (AUTO) 33.9 %; MEAN CORPUSCULAR HEMOGLOBIN 29.6 pg (27.0-31.0); MEAN CORPUSCULAR HGB CONC 31.7 g/dL (32.0-36.0); MEAN CORPUSCULAR VOLUME 93.6 fL (80.0-94.0); MEAN PLATELET VOLUME 11.2 fL (7.4-11.4); MONOCYTES # (AUTO) 0.7 10^3/uL (0.0-1.0); MONOCYTES % (AUTO) 5.9 %; NEUTROPHILS % (AUTO) 55.2 %; PLT - PLATELET COUNT 261 10^3/uL (130-450); RED BLOOD COUNT 6.41 10^6/uL (4.70-6.10); RED CELL DISTRIBUTION WIDTH 13.7 % (12.0-15.0); WHITE BLOOD COUNT 10.9 x10^3/uL (4.8-10.8)
[2022-07-28 12:09] LABS: BUN - BLOOD UREA NITROGEN 22 mg/dL (6-20); CALCIUM 9.8 mg/dL (8.5-10.3); CARBON DIOXIDE - CO2 26 mmol/L (21-32); CHLORIDE 102 mmol/L (101-111); CHOL/HDL RATIO 4.2 (<5.0); CHOLESTEROL 114 mg/dL; CREATININE 0.9 mg/dL (0.6-1.2); GFR - MDRD 83 (>89); GLUCOSE 179 mg/dL (70-100); HDL CHOLESTEROL 27 mg/dL; LDL CHOLESTEROL,CALCULATED 48 mg/dL; LDL/HDL RATIO 1.8 (<3.6); POTASSIUM 4.5 mmol/L (3.5-5.0); SODIUM 137 mmol/L (135-145); TRIGLYCERIDES 194 mg/dL; VLDL CHOLESTEROL 39 mg/dL
[2022-07-28 12:21] LABS: CREATININE,URINE 58.9 mg/dL; MICROALBUM/CREATININE RATIO,UR 42.4 ug/mg (<30.0); MICROALBUMIN,URINE 2.5 mg/dL (0-300.0)
[2022-07-28 14:08] LABS: ESTIMATED AVERAGE GLUCOSE 209 mg/dL (70-100); HEMOGLOBIN A1c% 8.9 % (4.27-6.07)
== END 2022-07-28 07:31 | disposition home or self-care (01) ==
LOC: LAB.N 07:30
PROVIDERS: ATTEND Internal Medicine
DX: I10 Essential (primary) hypertension (principal); E78.5 Hyperlipidemia, unspecified; E11.9 Type 2 diabetes mellitus without complications; D75.1 Secondary polycythemia; N40.1 Benign prostatic hyperplasia with lower urinary tract symptoms
CPT/HCPCS: 36415; 80048; 80061; 82043; 82570; 83036; 83721; 84153; 85025

== ENCOUNTER 2023-03-19 07:07 | Outpatient (CLI) | payer MEDICARE ==
[2023-03-19 11:57] LABS: BASOPHILS # (AUTO) 0.1 10^3/uL (0.0-0.1); BASOPHILS % (AUTO) 0.7 %; EOSINOPHILS # (AUTO) 0.5 10^3/uL (0.0-0.7); EOSINOPHILS % (AUTO) 4.6 %; HCT - HEMATOCRIT 58.6 % (42.0-52.0); LYMPHOCYTES # (AUTO) 3.7 10^3/uL (1.5-3.5); LYMPHOCYTES % (AUTO) 32.9 %; MEAN CORPUSCULAR HEMOGLOBIN 30.2 pg (27.0-31.0); MEAN CORPUSCULAR HGB CONC 32.4 g/dL (32.0-36.0); MEAN PLATELET VOLUME 11.5 fL (7.4-11.4); MONOCYTES # (AUTO) 0.8 10^3/uL (0.0-1.0); MONOCYTES % (AUTO) 6.7 %; NEUTROPHILS # (AUTO) 6.1 10^3/uL (1.5-6.6); NEUTROPHILS % (AUTO) 54.4 %; PLT - PLATELET COUNT 230 10^3/uL (130-450); RED CELL DISTRIBUTION WIDTH 13.7 % (12.0-15.0); WHITE BLOOD COUNT 11.3 x10^3/uL (4.8-10.8)
[2023-03-19 12:08] LABS: ESTIMATED AVERAGE GLUCOSE 220 mg/dL (70-100); HEMOGLOBIN A1c% 9.3 % (4.27-6.07)
[2023-03-19 12:20] LABS: ALBUMIN 4.5 g/dL (3.2-5.5); ALBUMIN/GLOBULIN RATIO 1.8 (1.0-2.2); BILIRUBIN,TOTAL 0.3 mg/dL (0.2-1.0); CALCIUM 9.8 mg/dL (8.5-10.3); POTASSIUM 4.4 mmol/L (3.5-4.5)
[2023-03-19 12:52] LABS: CREATININE,URINE 57.7 mg/dL; MICROALBUM/CREATININE RATIO,UR 50.3 ug/mg (<30.0); MICROALBUMIN,URINE 2.9 mg/dL
== END 2023-03-19 07:08 | disposition home or self-care (01) ==
LOC: LAB.N 07:07
PROVIDERS: ATTEND Internal Medicine
DX: I10 Essential (primary) hypertension (principal); D75.1 Secondary polycythemia; E11.9 Type 2 diabetes mellitus without complications
CPT/HCPCS: 36415; 80053; 82043; 82570; 83036; 85025

== ENCOUNTER 2023-07-31 08:22 | Outpatient (CLI) | payer MEDICARE ==
--- NOTE | 2023-07-31 08:46 | Sleep Patient Instructions ---
Sleep Center Visit Summary - Patient Visit Information Reason for Visit: Sleep Care Followup - Patient Instructions Instructions Attached: Sleep Study, Sleep Study Home Monitor Additional Instructions: You will be completing a sleep study, either an in-lab polysomnography (PSG) or home sleep study (HST). You will follow-up in the sleep care office after the sleep study is completed to hear the results and talk about therapy, if needed. You will be called by our office staff to schedule this appointment, but you may contact us with any questions. - Clinic Information Contact: [facility] [address] [place] [address] [email or web address] T: [phone]
--- NOTE | 2023-07-31 08:51 | SLEEP CARE CONSULTATION ---
Information from patient questionnaire entered by Rivka Acosta. I have reviewed and concur with the information entered by Rivka Acosta. This document represents the service I personally performed and the decisions made by me, Janessa Wong ARNP. History of Present Illness Service Date and Time: 07/31/2023821 Reason for follow up: annual (LAST SEEN 03/2022 NEVER DID STUDY) Prior sleep studies: No HPI additional information: I had the pleasure of seeing XUAN BOLDEN today regarding the possibility of him having a sleep disorder. His current complaints are snoring, observed pauses in breathing and frequent night awakenings. He says his last sleep study was cancelled and then he was unable to get it scheduled soon enough to get it done. He returns to try to restart process to get a sleep study. The patient tells me that he normally goes to bed around 9 pm, and it takes him approximately 30 minutes to fall asleep. He has been told that he snores loudly and irregularly at night. He has been observed to stop breathing in his sleep. His bed partner can still sleep in the same bed. He can recall waking up on the average of 3 times during the night. Most of the time he wakes up because of bathroom needs. He has not awakened for his own snoring, choking, and having to gasp for air. There is a lot of tossing and turning in his sleep. Generally he can recall having dreams. He usually wakes up at 0500 and feels refreshed. He usually does not have a morning headache. During the day he does not feel sleepy and fatigued. He has never fallen asleep while driving nor has any accident due to sleepiness. He usually does not take naps during the day. If he naps, upon falling asleep during the day he denies having vivid dreams. There is no somniloquy (sleep talking) or somnambulism (sleep walking). He has never experienced sleep paralysis, cataplexy, or symptoms of restless leg syndrome. He denies having impaired concentration during the day. Sleep Study - Results Prior sleep studies: No Subjective Initial [place] Sleepiness Scale score: 11 (04/01/2022) Current [place] Sleepiness Scale score: 0 (07/01/23) Allergies and Home Medications Known drug allergies: No Drug allergies reviewed: Yes Home medication list reviewed: Yes (no changes) Allergy and home medication list: Allergies No Known Drug Allergies Allergy (Verified 07/29/23 12:00) Review of Systems Review of systems same as previous: Yes (NO CHANGE) Physical Exam Vital signs obtained and entered by: RIVKA Londono MA Blood Pressure: 135/80 (LEFT ARM) Cuff size: regular Heart Rate: 86 O2 Saturation: 98 Height: 5 ft 5 in Weight: 156 lb 3.2 oz Body Mass Index: 25.9 BMI Classification: Overweight Impression and Plan 1. Suspected Obstructive Sleep Apnea-Hypopnea Syndrome, as suggested by a history of loud and irregular snoring, observed cessation of breath while asleep and frequent awakening during the night. He has a history of diabetes. I recommend proceeding to polysomnography to confirm the diagnosis and to assess severity. I obtained agreement to proceed. The pathophysiology of obstructive sl eep apnea-hypopnea syndrome was discussed with the patient and health risks of cardiovascular and cerebrovascular disease if not treated. Risks of drowsy driving discussed in detail and patient advised to avoid long distance driving and to machine tack puller at the first sign of drowsiness. Patient agreed to plan. 2. Overweight, unspecified. Currently patients BMI is 25.9. Obesity increases the risk of apnea, CPAP pressure requirements and overall health risks especially cardiovascular and diabetes. Thus patient is advised to lose weight. * Schedule polysomnography. * Avoid long distance driving or driving when feeling sleepy. * Avoid alcohol, sedative and muscle relaxant around bedtime. * Attempt to lose weight. * Review instructions provided by trained office staff on how to prepare for the sleep study. * Return for follow-up after sleep study completed. Counseling Topics: Weight loss health impact Plan: PSG Visit Type: In Office Time Spent with Patient (minutes): 12 Provider Statement: I spent 100% of the Face to Face Visit with the patient with greater than 50% spent counseling the patient and coordination of care.
[2023-07-31 08:55] VITALS: BP 135/80; O2SAT 98
== END 2023-07-31 08:23 | disposition home or self-care (01) ==
LOC: SC 08:22
PROVIDERS: ATTEND Nurse Practitioner Family
DX: G47.8 Other sleep disorders (principal); R06.83 Snoring; R06.81 Apnea, not elsewhere classified; E11.9 Type 2 diabetes mellitus without complications; E66.3 Overweight; Z68.25 Body mass index [BMI] 25.0-25.9, adult
CPT/HCPCS: 99212; G0463

== ENCOUNTER 2023-08-05 07:56 | Outpatient (CLI) | payer MEDICARE ==
[2023-08-05 11:52] LABS: BASOPHILS # (AUTO) 0.1 10^3/uL (0.0-0.1); BASOPHILS % (AUTO) 0.5 %; EOSINOPHILS # (AUTO) 0.2 10^3/uL (0.0-0.7); EOSINOPHILS % (AUTO) 1.3 %; HCT - HEMATOCRIT 60.6 % (42.0-52.0); HGB - HEMOGLOBIN 19.5 g/dL (14.0-18.0); LYMPHOCYTES # (AUTO) 4.1 10^3/uL (1.5-3.5); LYMPHOCYTES % (AUTO) 28.8 %; MEAN CORPUSCULAR HEMOGLOBIN 29.9 pg (27.0-31.0); MEAN CORPUSCULAR HGB CONC 32.2 g/dL (32.0-36.0); MEAN CORPUSCULAR VOLUME 92.9 fL (80.0-94.0); MEAN PLATELET VOLUME 10.4 fL (7.4-11.4); MONOCYTES # (AUTO) 0.9 10^3/uL (0.0-1.0); NEUTROPHILS # (AUTO) 8.9 10^3/uL (1.5-6.6); NEUTROPHILS % (AUTO) 62.7 %; PLT - PLATELET COUNT 334 10^3/uL (130-450); RED BLOOD COUNT 6.52 10^6/uL (4.70-6.10); RED CELL DISTRIBUTION WIDTH 14.6 % (12.0-15.0); WHITE BLOOD COUNT 14.1 x10^3/uL (4.8-10.8)
[2023-08-05 12:15] LABS: ALBUMIN 4.5 g/dL (3.2-5.5); ALBUMIN/GLOBULIN RATIO 1.9 (1.0-2.2); ALKALINE PHOSPHATASE 69 IU/L (42-121); ALT ALANINE AMINOTRANSFERASE 32 IU/L (10-60); AST ASPARTATE AMINOTRANSFERASE 22 IU/L (10-42); BILIRUBIN,TOTAL 0.8 mg/dL (0.2-1.0); BUN - BLOOD UREA NITROGEN 13 mg/dL (6-20); CALCIUM 9.8 mg/dL (8.5-10.3); CARBON DIOXIDE - CO2 27 mmol/L (21-32); CHLORIDE 98 mmol/L (101-111); CHOL/HDL RATIO 3.1 (<5.0); CHOLESTEROL 110 mg/dL; GFR - MDRD 74 (>89); GLUCOSE 181 mg/dL (74-104); HDL CHOLESTEROL 36 mg/dL; LDL CHOLESTEROL,CALCULATED 49 mg/dL; LDL/HDL RATIO 1.4 (<3.6); POTASSIUM 4.6 mmol/L (3.5-4.5); SODIUM 132 mmol/L (135-145); TOTAL PROTEIN 6.9 g/dL (6.4-8.9); TRIGLYCERIDES 125 mg/dL (48-352); VLDL CHOLESTEROL 25 mg/dL
[2023-08-05 12:20] LABS: ESTIMATED AVERAGE GLUCOSE 177 mg/dL (70-100); HEMOGLOBIN A1c% 7.8 % (4.27-6.07)
[2023-08-05 12:24] LABS: CREATININE,URINE 61.6 mg/dL; MICROALBUM/CREATININE RATIO,UR 51.9 ug/mg (<30.0); MICROALBUMIN,URINE 3.2 mg/dL
== END 2023-08-05 07:57 | disposition home or self-care (01) ==
LOC: LAB.N 07:56
PROVIDERS: ATTEND Internal Medicine
DX: E11.9 Type 2 diabetes mellitus without complications (principal); E78.5 Hyperlipidemia, unspecified; N40.1 Benign prostatic hyperplasia with lower urinary tract symptoms; D75.1 Secondary polycythemia
CPT/HCPCS: 36415; 80053; 80061; 82043; 82570; 83036; 83721; 84153; 85025

== ENCOUNTER 2023-08-27 08:18 | Outpatient (CLI) | payer MEDICARE | END 2023-08-27 08:19 | disposition home or self-care (01) | LOC: SC 08:18 | PROVIDERS: ATTEND Nurse Practitioner Family | DX: G47.33 Obstructive sleep apnea (adult) (pediatric) (principal); R09.02 Hypoxemia; R00.0 Tachycardia, unspecified | CPT/HCPCS: G0399 ×2; 95806 ==

== ENCOUNTER 2023-08-28 07:37 | Outpatient (CLI) | payer MEDICARE ==
--- NOTE | 2023-08-28 15:41 | Ultrasound Report ---
PROCEDURE: Aorta Screening INDICATIONS: HIST OF SMOKING TECHNIQUE: Real time scanning was performed of the aorta and iliac arteries, with image documentatio n. COMPARISON: None. FINDINGS: Aorta: Proximal aortic diameter measures 2.3 x 2.3 cm. Mid-aorta measures 1.5 x 1.5 cm. Distal aor tic diameter is 1.4 x 1.5 cm. Mild scattered plaque Iliac arteries: Right common iliac artery measures 0.9 x 0.7 cm. Left common iliac artery measures 0.9 x 0.8 cm. IMPRESSION: No aneurysmal dilation. Reviewed by: Cordelia Overton MD on 08/28/2023 3:39 PM PST Approved by: Cordelia Overton MD on 08/28/2023 3:39 PM PST Station ID: [id number]
== END 2023-08-28 07:38 | disposition home or self-care (01) ==
LOC: DI 07:37
PROVIDERS: ATTEND Internal Medicine
DX: Z13.6 Encounter for screening for cardiovascular disorders (principal); F17.210 Nicotine dependence, cigarettes, uncomplicated

== ENCOUNTER 2023-09-03 09:18 | Outpatient (CLI) | payer MEDICARE ==
--- NOTE | 2023-09-03 09:49 | Sleep Patient Instructions ---
Sleep Center Visit Summary - Patient Visit Information Reason for Visit: Sleep study follow-up - Patient Instructions Additional Instructions: You are going to be started on CPAP therapy. You will be completing a titration sleep study in our sleep lab where you will be sleeping with the CPAP machine on and we will be adjusting your pressures to find your optimal pressure settings. Once we have your results back, we will call you and schedule a follow up to go over the results. You will be called by our office staff to schedule your follow up, but you may contact us with any questions or issue as needed. - Clinic Information Contact: [facility] [address] [place] [address] [email or web address] T: [phone]
[2023-09-03 09:55] VITALS: BP 123/70; O2SAT 95
--- NOTE | 2023-09-03 09:55 | SLEEP CARE CONSULTATION ---
Information from patient questionnaire entered by Gloria Acosta. I have reviewed and concur with the information entered by Gloria Acosta. This document represents the service I personally performed and the decisions made by , Janessa Wong ARNP. History of Present Illness Service Date and Time: 09/03/2023 09 Initial [place] Sleepiness Scale score: 11 (04/01/2022) Current [place] Sleepiness Scale score: 12 Additional HPI information: XUAN BOLDEN returns for follow up and results of the recently performed home sleep study. The sleep study showed mild obstructive sleep apnea with an average AHI of 8.3 and [place] oxygen saturation of 81%. He had tachycardia with maximum 125 beats per minute. I explained the pathophysiology behind obstructive sleep apnea. We then spent quite a bit of time discussing different treatment options. For mild obstructive sleep apnea, surgery and oral appliance are alternatives to nasal CPAP therapy but in moderate or severe cases, nasal CPAP is the most effective and reliable treatment. I reviewed the impact of weight changes on sleep apnea and strongly recommended maintaining a healthy weight. After some discussion, the patient opted to go with the nasal CPAP therapy. A manual titration study will be ordered to find optimal pressure. I explained how CPAP machine works and what to expect when using the machine. Using CPAP every night in order to get used to it was emphasized. Patient counseled not drink alcohol less than 4 hours before bedtime as it can increase snoring and apnea. Patient was cautioned about risks of drowsy driving until sleepiness symptoms resolve. Patient denies drowsy driving. Sleep Study - Results Type of Sleep Study: Home sleep study (COMPLETED 08/27/23) Prior sleep studies: No Polysomnography/Home Sleep Study results: Physician Impression: The quality of the study is good. The length of the study is adequate (> 240 minutes). Please also see the tabulated and graphic data. 1. Obstructive Sleep Apnea-Hypopnea (ICD-10 G47.33), mild, with an AHI of 8.3/hr and az[place] SaO2 of 81%. During the study, the patient had 42 apneas (42 obstructive, 0 central, 0 mixed) and 31 hypopneas. The longest episode lasted 86.5 seconds. The respiratory events occurred more frequently during non-supine sleep (supine AHI was 8.4 and non-supine, 42.86). 2. Hypoxemia (ICD-10 R09.02), mild, with the lowest oxygen saturation of 81 % and 3.5 minutes with SaO2 under 90%. Baseline oxygen saturation was normal (Average oxygen saturation was 93%). 3. Tachycardia, with maximum recorded heart rate of 125 beats per minute. Allergies and Home Medications Known drug allergies: No Drug allergies reviewed: Yes Home medication list reviewed: Yes (no changes) Allergy and home medication list: Allergies No Known Drug Allergies Allergy (Verified 09/01/23 14:21) Review of Systems Review of systems same as previous: Yes (no changes) Physical Exam Vital signs obtained and entered by: KUSHAL JACOBO Blood Pressure: 123/70 Cuff size: regular (left arm) Heart Rate: 101 O2 Saturation: 95 Height: 5 ft 5 in Weight: 157 lb 11.2 oz Body Mass Index: 26.2 BMI Classification: Overweight Impression and Plan 1. Obstructive Sleep Apnea-Hypopnea Syndrome, mild, with lowest oxygen saturation of 81%. Obviously this is the cause of the patients symptoms of unrefreshed sleep, and excessive daytime sleepiness. Positive pressure therapy could benefit diabetes and hypertension. After discussing his results, the patient agreed and will be started on nasal autoCPAP therapy. A manual titration study will be completed to find optimal treatment pressure. Compliance guidelines also reviewed. A copy of compliance guidelines will be given for reference at check out. He was advised to avoid sleeping non-supine since he has severe obstructions when sleeping non-supine. 2. Hypoxemia, mild, with a [place] oxygen saturation of 81% and 3.5 minutes spent under 90%. The baseline oxygen saturation was normal with an average oxygen saturation of 93%. 3. Tachycardia. Patient had had episodes of tachycardia during night of sleep study with recorded maximum of 125 bpm. Patient advised to follow-up with primary provider for further evaluation as needed. 4. Overweight, unspecified. Currently patients BMI is 26.2. Obesity increases the risk of apnea, CPAP pressure requirements and overall health risks especially cardiovascular and diabetes. Thus patient is advised to lose weight. * Titration study. * Followup with primary provider for tachycardia * Maintain a healthy weight. * Avoid alcohol consumption near bedtime. * Return after titration study for results Counseling Topics: Sleeping position, Weight loss health impact Plan: Titration study Visit Type: In Office Time Spent with Patient (minutes): 20 Provider Statement: I spent 100% of the Face to Face Visit with the patient with greater than 50% spent counseling the patient and coordination of care.
== END 2023-09-03 09:19 | disposition home or self-care (01) ==
LOC: SC 09:18
PROVIDERS: ATTEND Nurse Practitioner Family
DX: G47.33 Obstructive sleep apnea (adult) (pediatric) (principal); R09.02 Hypoxemia; R00.0 Tachycardia, unspecified; E66.3 Overweight; Z68.26 Body mass index [BMI] 26.0-26.9, adult
CPT/HCPCS: 99213; G0463; 99212

== ENCOUNTER 2023-11-25 14:49 | Emergency (ER) | payer MEDICARE ==
[2023-11-25 14:59] VITALS: O2SAT 98
--- NOTE | 2023-11-25 15:02 | ED Physician Documentation ---
PD HPI MALE - Stated complaint Stated Complaint: - Chief complaint Chief Complaint: Abd Pain - History obtained from History obtained from: Patient, Family - Additional information Additional information: .This is a 73-year-old male who has a history of type 2 diabetes as well as polycythemia and is on aspirin, he presents with hematuria. He has had some mild dysuria intermittently over the course of the last week and then developed hematuria today. He passed a couple of small blood clots but has not had any other hematuria. He Continues to be able to pass urine. He has not had any fla nk pain, no fever or chills, no nausea or vomiting. He states he has had a urinary tract infection in the past he thinks, no history of ureteral stones to his knowledge. He is not on any anticoagulation. He does have a history of tobacco use.Initially, history received from patient, however daughter who is a nurse called later to clarify that patient is indeed having some pain which he initially denied to me, and expressed her concerns about possible bladder or kidney issues. Review of Systems Constitutional: reports: Reviewed and negative Eyes: reports: Reviewed and negative Ears: reports: Reviewed and negative Nose: reports: Reviewed and negative Throat: reports: Reviewed and negative Cardiac: reports: Reviewed and negative Respiratory: reports: Reviewed and negative GI: reports: Abdominal Pain. denies: Abdominal Swelling, Nausea, Vomiting, Constipation, Diarrhea, Hematemesis : reports: Frequency, Hematuria. denies: Testicular pain, Testicular mass Musculoskeletal: reports: Reviewed and negative Neurologic: reports: Reviewed and negative Psychiatric: reports: Reviewed and negative Endocrine: reports: Reviewed and negative PD PAST MEDICAL HISTORY - Past Medical History Past Medical History: Yes Cardiovascular: Hypertension, High cholesterol Respiratory: None Neuro: None Endocrine/Autoimmune: Type 2 diabetes GI: None : None HEENT: None Psych: None Musculoskeletal: None Derm: None - Past Surgical History Past Surgical History: Yes General: Colonoscopy - Present Medications Home Medications: Ambulatory Orders Medication Instructions Recorded Confirmed Aspirin [Aspir 81] 81 mg PO DAILY 05/24/14 11/25/23 Metformin HCl 1,000 mg PO BID 05/24/14 11/25/23 glipiZIDE [Glipizide] 20 mg PO BID 05/24/14 11/25/23 lisinopriL [Lisinopril] 5 mg PO DAILY 05/24/14 11/25/23 Atorvastatin [Lipitor] 20 mg ORAL QPM 09/24/20 11/25/23 Empagliflozin [Jardiance] 10 mg ORAL DAILY 09/24/20 11/25/23 Insulin Aspart [NovoLOG] 5 unit SUBQ TIDWM 30 Days #1 unit 11/01/21 11/25/23 cephALEXin [Keflex] 500 mg PO Q6H #28 cap 11/25/23 - Allergies Allergies/Adverse Reactions: Allergies Allergy/AdvReac Type Severity Reaction Status Date / Time No Known Drug Allergies Allergy Verified 11/25/23 14:53 - Social History Does the pt smoke?: Yes Smoking Status: Current every day smoker Does the pt drink ETOH?: No Does the pt have substance abuse?: No - Immunizations Immunizations are current?: No - POLST Patient has POLST: No PD ED PE NORMAL - Vitals Vital signs reviewed: Yes - General General: Alert and oriented X 3, No acute distress, Well developed/nourished - HEENT HEENT: Atraumatic, Moist mucous membranes - Cardiac Cardiac: RRR, No murmur - Respiratory Respiratory: No respiratory distress, Clear bilaterally - Abdomen Abdomen: Normal bowel sounds, Soft, Non tender, Non distended - Back Back: No CVA TTP, No spinal TTP - Derm Derm: Normal color, Warm and dry, No rash - Extremities Extremities: No deformity, No tenderness to palpate, Normal ROM s pain, No edema, No calf tenderness / cord - Psych Psych: Normal mood, Normal affect Results - Vitals Vitals: Vital Signs - 24 hr 11/25/23 14:53 Temperature 36.8 C Heart Rate 90 Respiratory 16 Rate Blood Pressure 160/83 H O2 Saturation 98 Oxygen O2 Source Room air - Labs Labs: Laboratory Tests 11/25/23 11/25/23 11/25/23 14:58 16:01 16:01 WBC 13.7 H RBC 5.99 Hgb 18.3 H Hct 53.7 H MCV 89.6 MCH 30.6 MCHC 34.1 RDW 13.3 Plt Count 231 MPV 11.0 Neut # (Auto) 7.9 H Lymph # (Auto) 4.0 H [place] # (Auto) 0.9 Eos # (Auto) 0.6 Baso # (Auto) 0.1 Absolute Nucleated RBC 0.00 Nucleated RBC % 0.0 Sodium 133 L Potassium 4.2 Chloride 99 L Carbon Dioxide 24 Anion Gap 10.0 BUN 24 H Creatinine 1.0 Estimated GFR (MDRD) 74 L Glucose 282 H Calcium 10.2 Urine Color RED/BLOODY Urine Clarity CLOUDY Urine pH 6.0 Ur Specific [place] 1.015 Urine Protein 30 H Urine Glucose (UA) >=1000 H Urine Ketones NEGATIVE Urine Occult Blood LARGE H Urine Nitrite POSITIVE H Urine Bilirubin NEGATIVE Urine Urobilinogen 0.2 (NORMAL) Ur Leukocyte Esterase NEGATIVE Urine RBC TNTC H Urine WBC 11-25 H Ur Squamous Epith Cells NONE SEEN Urine Bacteria Few Ur Microscopic Review INDICATED Urine Culture Comments INDICATED - Rads (name of study) No standard instances Relevant Findings:: Final report received, Discussed with rads PD Medical Decision Making - ED course Complexity details: reviewed old records, reviewed results, re-evaluated telma ent, considered differential, d/w patient, d/w family ED course: This is a 73-year-old male who presented with hematuria as described in HPI. Initial concern for possible urinary tract infection versus ureteral stone versus pyelonephritis versus bladder cancer. We obtained a urinalysis which shows blood as well as nitrates and possible infection, this was sent for cult ure. Proceeded with a CT scan noncontrast after speaking with daughter, the patient does unfortunately have a mass in the bladder concerning for bladder carcinoma. He was informed of these findings and advised to schedule follow-up with urology as soon as possible, he was referred locally to Dr. Braxton Pierre. He was advised that he will need to call make an appointment for further evaluation.I did offer to call the patient's daughter to inform her of these findings however the patient states that he would tell her himself. Labs today are stable and patient is not having any signs of systemic illness therefore he is stable for discharge home, will treat for possible cystitis with Keflex 4 times daily x 7 days as there are no systemic symptoms, And will follow culture and adjust antibiotics if necessary. I reiterated with the patient that he will need to call the urologist as soon as possible for follow- up and he was discharged home in stable condition with return precautions inc luding increasing bleeding, not able to pass urine, fever, flank pain or new concerns. Departure - Departure Disposition: Home, Self Care Clinical Impression: Acute cystitis with hematuria, Bladder mass Hematuria Qualifiers: Hematuria type: gross Qualified Code(s): R31.0 - Gross hematuria Condition: Good Instructions: ED Hematuria, ED UTI Cystitis Male Follow-Up: Ignacio Limno MD [Provider Admit Priv/Credential] - Prescriptions: cephALEXin [Keflex] 500 mg PO Q6H #28 cap Comments: You have blood in your urine and signs of an infection, but there is also a concerning mass in your bladder which needs to be evaluated for possible bladder cancer. I have referred you to urology. Please call as soon as possible to schedule an appointment. Please take the antibiotics as prescribed. We will send this urine for a culture and if we need to change the antibiotics we will notify you. If the blood increases and you are not able to pass urine, Please return to the ER. Your medication was sent to [facility] in [place]. Forms: PCP List
[2023-11-25 15:12] LABS: BILIRUBIN,URINE NEGATIVE (NEGATIVE); GLUCOSE, URINE (UA) >=1000 mg/dL (NEGATIVE); KETONES,URINE (UA) NEGATIVE (NEGATIVE); LEUKOCYTE ESTERASE, URINE NEGATIVE (NEGATIVE); NITRITE,URINE POSITIVE (NEGATIVE); OCCULT BLOOD,URINE LARGE (NEGATIVE); PROTEIN,URINE 30 mg/dL (NEGATIVE); UROBILINOGEN,URINE 0.2 (NORMAL) E.U./dL (NORMAL)
[2023-11-25 15:14] LABS: CLARITY,URINE CLOUDY (CLEAR)
[2023-11-25 15:25] LABS: RBC,URINE TNTC /HPF (0-5); SQUAMOUS EPITHELIAL CELL,UR NONE SEEN (<= Few)
[2023-11-25 15:26] LABS: BACTERIA,URINE Few /HPF (None Seen)
[2023-11-25 16:11] LABS: BASOPHILS # (AUTO) 0.1 10^3/uL (0.0-0.1); BASOPHILS % (AUTO) 0.7 %; EOSINOPHILS # (AUTO) 0.6 10^3/uL (0.0-0.7); EOSINOPHILS % (AUTO) 4.7 %; HCT - HEMATOCRIT 53.7 % (42.0-52.0); HGB - HEMOGLOBIN 18.3 g/dL (14.0-18.0); LYMPHOCYTES % (AUTO) 29.4 %; MEAN CORPUSCULAR HEMOGLOBIN 30.6 pg (27.0-31.0); MEAN CORPUSCULAR HGB CONC 34.1 g/dL (32.0-36.0); MEAN CORPUSCULAR VOLUME 89.6 fL (80.0-94.0); MONOCYTES # (AUTO) 0.9 10^3/uL (0.0-1.0); MONOCYTES % (AUTO) 6.6 %; NEUTROPHILS # (AUTO) 7.9 10^3/uL (1.5-6.6); PLT - PLATELET COUNT 231 10^3/uL (130-450); RED BLOOD COUNT 5.99 10^6/uL (4.70-6.10); RED CELL DISTRIBUTION WIDTH 13.3 % (12.0-15.0); WHITE BLOOD COUNT 13.7 x10^3/uL (4.8-10.8)
[2023-11-25 16:31] LABS: CALCIUM 10.2 mg/dL (8.5-10.3); POTASSIUM 4.2 mmol/L (3.5-4.5)
--- NOTE | 2023-11-25 16:51 | CT Report ---
PROCEDURE: Abdomen/Pelvis WO INDICATIONS: flank pain and hematuria TECHNIQUE: A CT scan of the abdomen and pelvis was performed without the use of intravenous contrast. Images we re recorded and evaluated at appropriate window settings. Reformats: coronal and sagittal. For radiat ion dose reduction, the following was used: automated exposure control, adjustment of mA and/or kV ac cording to patient size. COMPARISON: None. FINDINGS: Image quality: Diagnostic. Lower chest: Unremarkable. Liver: No contour-deforming mass. Gallbladder and biliary tree: No radiopaque stones or wall thickening. No biliary dilation. Spleen: No splenomegaly. Pancreas: No pancreatic ductal dilation. Adrenals: No adrenal nodule. Kidneys and ureters: No hydronephrosis. No renal cystic lesion which requires follow up. No solid mas s. Stomach, bowel and peritoneum: No bowel distension. No pathologic free fluid. Lymph nodes: No central or retroperitoneal adenopathy. Vessels: No infrarenal aortic aneurysm. PELVIS Reproductive organs: Moderate splenomegaly. Bladder: There is a mass bulging into the bladder from the right posterior bladder wall measuring 2.6 x 2.3 x 1.9 cm, consistent with bladder carcinoma. Pelvic lymph nodes: No pelvic adenopathy by size criteria. Bones: No aggressive osseous abnormality. Other: No significant ventral or inguinal hernia. IMPRESSION: 1. 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 2. No hydronephrosis. 3. Moderate prostatomegaly. Reviewed by: Miguel Elder MD on 11/25/2023 4:49 PM PDT Approved by: Miguel Elder MD on 11/25/2023 4:49 PM PDT Station ID: [id number]
[2023-11-25 19:51] VITALS: BP 148/82
== END 2023-11-25 18:10 | disposition home or self-care (01) ==
LOC: ED 14:49
DX: N30.01 Acute cystitis with hematuria (principal); N32.9 Bladder disorder, unspecified; I10 Essential (primary) hypertension; E11.9 Type 2 diabetes mellitus without complications; D75.1 Secondary polycythemia; Z79.82 Long term (current) use of aspirin; E78.00 Pure hypercholesterolemia, unspecified; Z79.4 Long term (current) use of insulin; F17.200 Nicotine dependence, unspecified, uncomplicated
CPT/HCPCS: 36415; 80048; 81001; 81003; 85025; 87086; 99284

== ENCOUNTER 2023-12-15 08:06 | Outpatient (CLI) | payer MEDICARE ==
[2023-12-15 11:59] LABS: BASOPHILS # (AUTO) 0.1 10^3/uL (0.0-0.1); BASOPHILS % (AUTO) 0.5 %; EOSINOPHILS # (AUTO) 0.2 10^3/uL (0.0-0.7); EOSINOPHILS % (AUTO) 1.7 %; HCT - HEMATOCRIT 55.2 % (42.0-52.0); HGB - HEMOGLOBIN 17.7 g/dL (14.0-18.0); LYMPHOCYTES # (AUTO) 2.8 10^3/uL (1.5-3.5); MEAN CORPUSCULAR HEMOGLOBIN 30.1 pg (27.0-31.0); MEAN CORPUSCULAR HGB CONC 32.1 g/dL (32.0-36.0); MEAN CORPUSCULAR VOLUME 93.7 fL (80.0-94.0); MEAN PLATELET VOLUME 11.6 fL (7.4-11.4); MONOCYTES # (AUTO) 0.7 10^3/uL (0.0-1.0); MONOCYTES % (AUTO) 5.9 %; NEUTROPHILS # (AUTO) 7.9 10^3/uL (1.5-6.6); PLT - PLATELET COUNT 281 10^3/uL (130-450); RED BLOOD COUNT 5.89 10^6/uL (4.70-6.10); WHITE BLOOD COUNT 11.8 x10^3/uL (4.8-10.8)
[2023-12-15 12:23] LABS: ALBUMIN 4.4 g/dL (3.2-5.5); ALBUMIN/GLOBULIN RATIO 1.7 (1.0-2.2); BILIRUBIN,TOTAL 0.5 mg/dL (0.2-1.0); CALCIUM 9.9 mg/dL (8.5-10.3); CREATININE 1.1 mg/dL (0.6-1.3); POTASSIUM 4.5 mmol/L (3.5-4.5)
[2023-12-15 12:37] LABS: ESTIMATED AVERAGE GLUCOSE 237 mg/dL (70-100); HEMOGLOBIN A1c% 9.9 % (4.27-6.07)
== END 2023-12-15 08:07 | disposition home or self-care (01) ==
LOC: LAB.N 08:06
PROVIDERS: ATTEND Internal Medicine
DX: E11.9 Type 2 diabetes mellitus without complications (principal); D75.1 Secondary polycythemia
CPT/HCPCS: 36415; 80053; 83036; 85025

== ENCOUNTER 2023-12-21 06:15 | Day surgery (SDC) | payer MEDICARE ==
[2023-12-21] MEDS: LACTATED RINGERS 1,000 ML IV ONE ×2 (06:20→08:05)
[2023-12-21] MEDS ORDERED: ceFAZolin 2 GM VIAL ONE (06:22)
[2023-12-21] MEDS ORDERED: ONDANSETRON 4 MG/2 ML VIAL IVP PRN ×2 (06:42→08:03)
[2023-12-21] MEDS ORDERED: ePHEDrine 50 MG/ML VIAL IVP PRN (06:42)
[2023-12-21] MEDS ORDERED: fentaNYL 100 MCG/2 ML VIAL IVP PRN (06:42)
[2023-12-21] MEDS ORDERED: METOCLOPRAMIDE 10 MG/2 ML VIAL IVP PRN (06:42)
[2023-12-21] MEDS ORDERED: HYDROmorphone 0.5 MG/0.5 ML SYRINGE IVP PRN (06:42)
[2023-12-21] MEDS ORDERED: MORPHINE 2 MG/ML CARPUJECT IVP PRN (06:42)
[2023-12-21] MEDS ORDERED: NALOXONE 0.4 MG/ML VIAL IVP PRN (06:42)
[2023-12-21] MEDS ORDERED: ATROPINE ABBOJECT 1 MG/10 ML SYRINGE IVP PRN (06:42)
--- NOTE | 2023-12-21 06:42 | ANESTHESIA ---
Pre-Anesthesia VS, & Labs - Diagnosis bladder mass - Procedure TURBT Vital Signs: Temp Pulse Resp BP Pulse Ox O2 Flow Rate 36.3 C L 84 20 143/78 H 99 0 12/21/23 06:37 12/21/23 06:37 12/21/23 06:37 12/21/23 06:37 12/21/23 06:37 12/21/23 06:37 Height: 5 ft 5 in Weight (kg): 68.5 kg Body Mass Index: 25.1 BMI Classification: Overweight - NPO >8 hours Last Fluid Intake: sips coffee@0530 Last Food Intake: >8hrs - Lab Results Lab results reviewed: Yes Home Medications and Allergies Home Medications: Ambulatory Orders Dulaglutide [Trulicity] 3 mg SUBQ ONCE 12/14/23 Insulin Glargine [Lantus Solostar] 3 mg SUBQ DAILY 12/14/23 Sildenafil Citrate [Viagra] 100 mg PO HS PRN 12/14/23 Tamsulosin [Flomax] 0.4 mg PO DAILY 12/14/23 Aspirin [Aspir 81] 81 mg PO DAILY 05/24/14 Metformin HCl 1,000 mg PO BID 05/24/14 glipiZIDE [Glipizide] 5 mg PO DAILY 05/24/14 lisinopriL [Lisinopril] 40 mg PO DAILY 05/24/14 Atorvastatin [Lipitor] 20 mg ORAL QPM 09/24/20 Empagliflozin [Jardiance] 25 mg ORAL DAILY 09/24/20 Dulaglutide [Trulicity] 3 mg SUBQ ONCE 12/14/23 Insulin Glargine [Lantus Solostar] 3 mg SUBQ DAILY 12/14/23 Sildenafil Citrate [Viagra] 100 mg PO HS PRN 12/14/23 Tamsulosin [Flomax] 0.4 mg PO DAILY 12/14/23 Allergies/Adverse Reactions: Allergies Allergy/AdvReac Type Severity Reaction Status Date / Time No Known Drug Allergies Allergy Verified 11/25/23 14:53 Anes History & Medical History - Anesthetic History Anesthesia Complications: reports: No previous complications Family history of Anesthesia Complications: Denies Family history of Malignant Hyperthermia: Denies - Medical History Cardiovascular: reports: Hypertension, High cholesterol Pulmonary: reports: None Gastrointestinal: reports: None Urinary: reports: None, Benign prostate hypertrophy, Other Neuro: reports: None Musculoskeletal: reports: None, Osteoarthritis Endocrine/Autoimmune: reports: Type 2 diabetes Blood Disorders: reports: None Skin: reports: Eczema Smoking Status: Current every day smoker Psychosocial: reports: Alcohol History of Cancer?: No (possible bladder) - Surgical History General: reports: Colonoscopy Eyes Ears Nose Throat (EENT): reports: Cataracts Exam General: Alert, Oriented x3, Cooperative Dental: WNL Mouth Openin Fingerbreadth Neck Mobility: Normal Mallampati classification: II Thyromental Distance: 4-6 cm Respiratory: Lungs clear, Normal breath sounds Cardiovascular: Regular rate Neurological: Normal speech Mental/Cognitive Status: Alert/Oriented X3, Normal for patient Cognitive Status: Within normal limits Plan Anesthesia Type: General Consent for Procedure(s) Verified and Reviewed: Yes Code Status: Attempt Resuscitation ASA classification: 2-Mild systemic disease Is this case an emergency?: No
[2023-12-21] MEDS ORDERED: MIDAZOLAM 2 MG/2 ML VIAL ONE (07:00)
[2023-12-21] MEDS ORDERED: LACTATED RINGERS 1,000 ML IV SCH (07:00)
[2023-12-21] MEDS ORDERED: LIDOCAINE-PF 2% 10 ML AMP SUBQ ONE (07:01)
[2023-12-21] MEDS ORDERED: PROPOFOL 200 MG/20 ML VIAL IVP ONE (07:01)
[2023-12-21] MEDS ORDERED: fentaNYL 100 MCG/2 ML VIAL ONE (07:01)
[2023-12-21] MEDS ORDERED: LIDOCAINE 2% URO-JET 5 ML SYRINGE UR ONE (07:12)
[2023-12-21] MEDS ORDERED: DEXAMETHASONE 4 MG/ML VIAL ONE (07:35)
[2023-12-21] MEDS ORDERED: ONDANSETRON 4 MG/2 ML VIAL ONE (07:35)
[2023-12-21] MEDS: LIDOCAINE 2% URO-JET 5 ML SYRINGE UR ONE (07:50)
--- NOTE | 2023-12-21 08:14 | Discharge Plan ---
Discharge Plan Problem Reviewed?: Yes Disposition: Home, Self Care Condition: Good Prescriptions: Docusate Sodium 100Mg Capsule [Colace 100Mg Capsule] 100 mg PO DAILY #7 cap oxyCODONE [Roxicodone] 5 mg PO Q4H PRN #10 tablet PRN Reason: Pain Diet: Regular Activity Restrictions: Additional Comments (as instructed) Shower Restrictions: No Driving Restrictions: No Instruction Topics: Cancer Bladder TUR Additional Instructions or Follow Up instructions: You will be contacted for follow-up with Dr. Limon next week No Smoking: If you smoke, Please STOP! Call for help.
--- NOTE | 2023-12-21 08:17 | OPERATIVE REPORT ---
Operative Report - General Procedure Date: 12/21/23 Planned Procedure: Transurethral resection of bladder tumor Pre-Op Diagnosis: Bladder mass Procedure Performed: Transurethral resection of bladder tumor 2.5cm Post Op Diagnosis: Bladder mass - Procedure Note Primary Surgeon: Braxton Anesthesia Provider: PATRICIA Griffin Anesthesia Technique: General LMA Pathology: Bladder tumor Estimated Blood Loss (mL): 3 Findings: 2.5cm right mass just posterior and lateral to UO Complications: none - Other Other Information/Narrative: After informed sent was obtained patient brought to the OR and laid in the supine position. The patient was anesthetized per anesthesia protocols and placed in dorsolithotomy position and prepped and draped in usual sterile fashion. A formal timeout was performed reconfirming the patient, procedure and laterality His meatus was dilated from 22 Montenegrin to 30 Montenegrin using sequential dilators. A 26 Montenegrin resectoscope was advanced then easily into the urinary bladder. He had a moderately enlarged prostate with a slight prominence of the median lobe and lateral lobe hypertrophy. There was a 2 and half centimeter sessile and slightly pedunculated mass just posterior and lateral to the right UO. There were no other masses or lesions or other concerns. Using a loop electrode with bipolar we resected this mass. Spot cautery was used for hemostasis. The specimen pieces were evacuated and sent for analysis. There was some mild oozing from the prostate from the procedure and so a 22 Montenegrin three-way Kay was placed with some light continuous bladder irrigation. A Uro-Jet was also placed This concluded the procedure and the patient tolerated the procedure well. He was brought to PACU without further incident. We will remove the Kay in the PACU and he will go home today.
[2023-12-21] MEDS ORDERED: HYDROcod/ACETAM 5/325 MG TABLET ONE (09:07)
[2023-12-21] MEDS: HYDROcod/ACETAM 5/325 MG TABLET PO PRN (09:10)
[2023-12-21 09:22] VITALS: O2SAT 97
[2023-12-21 09:32] VITALS: BP 120/76
--- NOTE | 2023-12-21 09:54 | ANESTHESIA POST OP EVALUATION ---
Anesthesia Post Eval - Post Anesthesia Eval Vitals: Last Vital Signs Temp 36.1 C L 12/21/23 09:22 Pulse 75 12/21/23 09:22 Resp 16 12/21/23 09:22 BP 120/76 12/21/23 09:22 Pulse Ox 97 12/21/23 09:22 O2 Flow Rate 0 12/21/23 06:37 CV Function Including HR & BP: Stable Pain Control: Satisfactory Nausea & Vomiting: Negative Mental Status: Baseline Respiratory Status: Airway Patent Hydration Status: Satisfactory Anesthesia Complications: None
== END 2023-12-21 06:16 | disposition home or self-care (01) ==
LOC: SDS 06:15
PROVIDERS: ATTEND Urology
PROC: 0TBB8ZZ Excision of Bladder, Via Natural or Artificial Opening Endoscopic (ICD-10-PCS; principal; 2023-12-21 07:30)
DX: C67.9 Malignant neoplasm of bladder, unspecified (principal); E11.9 Type 2 diabetes mellitus without complications; Z79.4 Long term (current) use of insulin; Z79.84 Long term (current) use of oral hypoglycemic drugs; N40.0 Benign prostatic hyperplasia without lower urinary tract symptoms; R31.9 Hematuria, unspecified; R30.0 Dysuria; Z79.899 Other long term (current) drug therapy; F17.210 Nicotine dependence, cigarettes, uncomplicated; I10 Essential (primary) hypertension
CPT/HCPCS: 52235; A9270; J7120

== ENCOUNTER 2024-01-08 13:54 | Outpatient (CLI) | payer MEDICARE ==
[2024-01-08] MEDS ORDERED: iohexoL-300 150 ML BOTTLE ONE (14:10)
[2024-01-08] MEDS: iohexoL-300 100 ML VIAL IVP ONE (14:26)
[2024-01-08] MEDS: iohexoL-300 150 ML BOTTLE IVP ONE (14:26)
--- NOTE | 2024-01-11 16:52 | CT Report ---
PROCEDURE: IVP INDICATIONS: BLADDER CA CONTRAST: 140ml omni 300 TECHNIQUE: A [address] of the abdomen and pelvis was performed. Non-contrast and contrast images were recorded and evaluated at appropriate window settings. Images were recorded and evaluated at appropriate windo w settings. Reformats: coronal and sagittal. For radiation dose reduction, the following was used: au tomated exposure control, adjustment of mA and/or kV according to patient size. COMPARISON: None. FINDINGS: Image quality: Diagnostic. Lower chest: Unremarkable. Liver: No solid mass. Gallbladder: Biliary tree: No intrahepatic or extrahepatic dilation, accounting for age. Spleen: No splenomegaly. Pancreas: No pancreatic ductal dilation. Adrenals: No adrenal nodule. Kidneys and ureters: Both kidneys are normal in size. No hydronephrosis or nephrolithiasis on pre-con trast images. No solid masses or complex cysts which require follow up. The opacified renal calyces and ureters appear normal, without filling defect. And exophytic cystic lesion is present within the midpole the right kidney which measures 28 Hounsfield units on the precontrast image and 37 Hounsfie ld units on the postcontrast image. Stomach, bowel and peritoneum: No bowel distension. No pathologic free fluid. Abdominal Lymph nodes: No central or retroperitoneal adenopathy. Vessels: Unremarkable. Patent portal vein. Reproductive organs: Unremarkable. Bladder: Focal posterior superior right bladder wall mass is redemonstrated. No calcified bladder sto neil. Pelvic Lymph nodes: Unremarkable. Bones: No aggressive osseous abnormality. Other: None. IMPRESSION: 1. No hydronephrosis, nephrolithiasis, hydroureter, or ureterolithiasis. 2. No suspicious urothelial filling defects or enhancing renal mass lesions. 3. Probable right hyperdense cyst as above. 4. Right bladder mass redemonstrated. Reviewed by: Manuela Moreno MD on 01/11/2024 4:51 PM PDT Approved by: Manuela Moreno MD on 01/11/2024 4:51 PM PDT Station ID: [id number]
== END 2024-01-08 13:55 | disposition home or self-care (01) ==
LOC: DI 13:54
PROVIDERS: ATTEND Urology
DX: C67.2 Malignant neoplasm of lateral wall of bladder (principal)

== ENCOUNTER 2024-02-12 06:22 | Day surgery (SDC) | payer MEDICARE ==
[~2024-02-12 06:22] MED LIST: PROPOFOL 500 MG/50 ML 500 MG/50 ML VIAL ONE
[2024-02-12] MEDS: LACTATED RINGERS 1,000 ML IV ONE ×2 (06:26→08:42)
--- NOTE | 2024-02-12 06:38 | ANESTHESIA ---
Pre-Anesthesia VS, & Labs - Diagnosis Screening - Procedure Colonoscopy Height: 5 ft 5 in Home Medications and Allergies Aspirin [Aspir 81] 81 mg PO DAILY 05/24/14 Metformin HCl 1,000 mg PO BID 05/24/14 glipiZIDE [Glipizide] 5 mg PO DAILY 05/24/14 lisinopriL [Lisinopril] 40 mg PO DAILY 05/24/14 Atorvastatin [Lipitor] 20 mg ORAL QPM 09/24/20 Empagliflozin [Jardiance] 25 mg ORAL DAILY 09/24/20 Dulaglutide [Trulicity] 3 mg SUBQ ONCE 12/14/23 Insulin Glargine [Lantus Solostar] 3 mg SUBQ DAILY 12/14/23 Sildenafil Citrate [Viagra] 100 mg PO HS PRN 12/14/23 Tamsulosin [Flomax] 0.4 mg PO DAILY 12/14/23 Allergies/Adverse Reactions: Allergies Allergy/AdvReac Type Severity Reaction Status Date / Time No Known Drug Allergies Allergy Verified 11/25/23 14:53 Anes History & Medical History - Medical History Cardiovascular: reports: Hypertension, High cholesterol Pulmonary: reports: None Gastrointestinal: reports: None Urinary: reports: None, Benign prostate hypertrophy, Other Neuro: reports: None Musculoskeletal: reports: None, Osteoarthritis Endocrine/Autoimmune: reports: Type 2 diabetes Blood Disorders: reports: None Skin: reports: Eczema Smoking Status: Current every day smoker - Surgical History General: reports: Colonoscopy Eyes Ears Nose Throat (EENT): reports: Cataracts Exam General: Alert, Oriented x3, Cooperative Dental: WNL Mouth Openin Fingerbreadth Mallampati classification: II Thyromental Distance: 4-6 cm Plan Anesthesia Type: General Consent for Procedure(s) Verified and Reviewed: Yes Code Status: Attempt Resuscitation ASA classification: 2-Mild systemic disease (Pt states he had "soup" last PM at 2100 on 02/10. He states it had pasta, vegtables, and broth.) Is this case an emergency?: No
--- NOTE | 2024-02-12 07:39 | HISTORY & PHYSICAL EXAMINATION ---
Chief Complaint - Chief Complaint Chief Complaint: here for colon cancer screening History of Present Illness - History Obtained From Records Reviewed: yes History obtained from: pt Exam Limitations: none - History of Present Illness HPI Comment/Other: limitations in history present. he may have started ozempic since seen in the office. he cannot tell me if he takes it. in addition he states he has diabetes and needs to eat. he had soup with noodles last pm. he is not telling me if he had lunch. he states he drank 4 liters of bowel prep starting at 130 this am and only thin liquid is left in his colon. he would like to proceed with his colonoscopy. we did discuss If I cannot see, I cannot reassure him I am not missing anything. we discussed liquid forms of nutrition. he continues to state he needs food due to his diabetes. It does not seem he will be able to do any better in preparation of a colonoscopy. he had a normal colonoscopy 10 years ago. History - Past Medical History Cardiovascular: reports: Hypertension, High cholesterol Respiratory: reports: None Neuro: reports: None Endocrine/Autoimmune: reports: Type 2 diabetes GI: reports: None : reports: None, Benign prostate hypertrophy, Other HEENT: reports: None Psych: reports: None Musculoskeletal: reports: None, Osteoarthritis Derm: reports: Eczema MRSA Hx?: No - Past Surgical History General: reports: Colonoscopy HEENT: reports: Cataracts - POLST Patient has POLST: No Meds/Allgy - Home Medications Home Medications: Ambulatory Orders Medication Instructions Recorded Confirmed Aspirin [Aspir 81] 81 mg PO DAILY 05/24/14 02/12/24 Metformin HCl 1,000 mg PO BID 05/24/14 02/12/24 glipiZIDE [Glipizide] 5 mg PO DAILY 05/24/14 02/12/24 lisinopriL [Lisinopril] 40 mg PO DAILY 05/24/14 02/12/24 Atorvastatin [Lipitor] 20 mg ORAL QPM 09/24/20 02/12/24 Empagliflozin [Jardiance] 25 mg ORAL DAILY 09/24/20 02/12/24 Dulaglutide [Trulicity] 3 mg SUBQ ONCE 12/14/23 02/12/24 Insulin Glargine [Lantus Solostar] 3 mg SUBQ DAILY 12/14/23 02/12/24 Sildenafil Citrate [Viagra] 100 mg PO HS PRN 12/14/23 02/12/24 Tamsulosin [Flomax] 0.4 mg PO DAILY 12/14/23 02/12/24 Docusate Sodium 100Mg Capsule 100 mg PO DAILY #7 cap 12/21/23 02/12/24 [Colace 100Mg Capsule] - Allergies Allergies/Adverse Reactions: Allergies Allergy/AdvReac Type Severity Reaction Status Date / Time No Known Drug Allergies Allergy Verified 11/25/23 14:53 Review of Systems - Other Findings Other Findings: 10 pt ros as above otherwise unremarkable Exam - Vital Signs Vital Signs: Vital Signs x48h Temp Pulse Resp BP Pulse Ox 02/12/24 06:36 36 C L 97 16 124/800 H 96 - Physical Exam General Appearance: positive: No acute distress, Alert Eyes Bilateral: positive: PERRL, EOMI ENT: positive: No signs of dehydration Neck: positive: No JVD, Trachea midline Respiratory: positive: No respiratory distress Cardiovascular: positive: Regular rate & rhythm Abdomen: positive: Non-tender, No distention Neurologic/Psychiatric: positive: Oriented x3 Conclusion/Plan - Problem List (1) Colon cancer screening Conclusion/Plan: plan colonoscopy. he understands the colonoscopy might not be successful and small tumors could be missed because he ate yesterday. he states only thin liquid is in his colon and wishes to proceed. he cannot tell me if he takes ozempic. this was ordered after I saw him in the office. anne marie held and consent obtained
[2024-02-12] MEDS ORDERED: PHENYLEPHRINE HCL 0.5 MG/5 ML AMPULE ONE (08:05)
--- NOTE | 2024-02-12 09:11 | ANESTHESIA POST OP EVALUATION ---
Anesthesia Post Eval - Post Anesthesia Eval Vitals: Last Vital Signs Temp 36.0 C L 02/12/24 09:06 Pulse 80 02/12/24 09:06 Resp 14 02/12/24 09:06 BP 112/78 02/12/24 09:06 Pulse Ox 99 02/12/24 09:06 O2 Flow Rate CV Function Including HR & BP: Stable Pain Control: Satisfactory Nausea & Vomiting: Negative Mental Status: Baseline Respiratory Status: Airway Patent Hydration Status: Satisfactory Anesthesia Complications: None
[2024-02-12 09:19] VITALS: BP 130/83; O2SAT 96
== END 2024-02-12 06:23 | disposition home or self-care (01) ==
LOC: SDS 06:22
PROVIDERS: ATTEND Surgery
PROC: 0DBM8ZZ Excision of Descending Colon, Via Natural or Artificial Opening Endoscopic (ICD-10-PCS; principal; 2024-02-12 07:30)
DX: Z12.11 Encounter for screening for malignant neoplasm of colon (principal); K63.5 Polyp of colon; I10 Essential (primary) hypertension; E11.9 Type 2 diabetes mellitus without complications; F17.200 Nicotine dependence, unspecified, uncomplicated; Z79.4 Long term (current) use of insulin; Z79.84 Long term (current) use of oral hypoglycemic drugs
CPT/HCPCS: 45385; J2372; J7120

== ENCOUNTER 2024-04-18 07:09 | Outpatient (CLI) | payer MEDICARE ==
[2024-04-18 12:35] LABS: ESTIMATED AVERAGE GLUCOSE 235 mg/dL (70-100); HEMOGLOBIN A1c% 9.8 % (4.27-6.07)
[2024-04-18 12:43] LABS: CREATININE 0.9 mg/dL (0.6-1.3); POTASSIUM 4.2 mmol/L (3.5-4.5)
== END 2024-04-18 07:10 | disposition home or self-care (01) ==
LOC: LAB.N 07:09
PROVIDERS: ATTEND Internal Medicine
DX: E11.9 Type 2 diabetes mellitus without complications (principal)
CPT/HCPCS: 36415; 80048; 83036

== ENCOUNTER 2024-05-02 09:29 | Outpatient (CLI) | payer MEDICARE ==
--- NOTE | 2024-05-02 12:13 | CT Report ---
PROCEDURE: Lung Cancer Screen INDICATIONS: TOBACCO SMOKER TECHNIQUE: A CT scan of the chest was performed. Intravenous contrast media was not administered. Images were re corded and evaluated at appropriate window settings. Reformats: axial MIP of the chest, coronal and s agittal. For radiation dose reduction, the following was used: automated exposure control, adjustment of mA and/or kV according to patient size. COMPARISON: 08/17/2023. FINDINGS: Image quality: Diagnostic. Lungs and pleura: No pleural effusions. No pneumothorax. No new suspicious or enlarging pulmonary no dules identified. Mediastinum: Heart size is normal. No pericardial effusion. No large vessel abnormality. No mediastin al adenopathy by size criteria. Mild atherosclerotic calcifications of the coronary arteries. Chest wall and lower neck: Thyroid is unremarkable. No axillary or supraclavicular adenopathy by size . Bones: No aggressive osseous abnormality. Upper Abdomen: Unremarkable. IMPRESSION: No suspicious pulmonary nodules. Lung RAD: 1 - Negative. Recommendation: Continue annual screening in 12 Months with LDCT Non-Lung Significant Findings: . Mild atherosclerotic calcifications of the coronary arteries. Reviewed by: Rodolfo Willis MD on 05/02/2024 12:12 PM PDT Approved by: Rodolfo Willis MD on 05/02/2024 12:12 PM PDT Station ID: [id number]
== END 2024-05-02 09:30 | disposition home or self-care (01) ==
LOC: DI 09:29
PROVIDERS: ATTEND Internal Medicine
DX: Z12.2 Encounter for screening for malignant neoplasm of respiratory organs (principal); I25.10 Atherosclerotic heart disease of native coronary artery without angina pectoris; F17.200 Nicotine dependence, unspecified, uncomplicated

== ENCOUNTER 2024-08-06 07:54 | Inpatient (IN) ==
--- NOTE | 2024-08-06 08:43 | ED Physician Documentation ---
PD HPI URI Stated complaint Stated Complaint: SOA,COUGH,GEN WEAKNESS Chief complaint Chief Complaint: Resp History obtained from History obtained from: Patient History of Present Illness Timing - onset: How many weeks ago (2) Timing details: Gradual onset and Still present (worse the past few days.) Associated symptoms: Fever, Chills, Productive cough and Dyspnea; No Hemoptysis or Chest pain Contributing factors: Sick contact and Travel (to [facility]); No Immunocompromised or COPD / asthma Improves by: Rest Worsened by: Activity Similar symptoms before: Has not had sx before Meds/Allgy Home Medications Ambulatory Orders Medication Instructions Recorded Confirmed aspirin 81 mg tablet,delayed 81 mg PO BID 05/24/14 08/06/24 release (Aspir-) glipizide 10 mg tablet 5 mg PO DAILY 05/24/14 08/06/24 metformin 1,000 mg tablet 1,000 mg PO BID 05/24/14 08/06/24 atorvastatin 20 mg tablet 20 mg ORAL QPM 09/24/20 08/06/24 insulin glargine 100 unit/mL (3 35 unit subcut DAILY 12/14/23 08/06/24 mL) subcutaneous pen (Lantus Solostar U-100 Insulin) sildenafil 25 mg tablet (Viagra) 100 mg PO HS PRN As Needed Per 12/14/23 08/06/24 Provider Orders tamsulosin 0.4 mg capsule 0.4 mg PO DAILY 12/14/23 08/06/24 lisinopril 40 mg tablet 40 mg PO DAILY 08/06/24 08/06/24 Allergies Allergies Allergy/AdvReac Type Severity Reaction Status Date / Time No Known Drug Allergies Allergy Verified 08/06/24 08:06 [facility] Medical History Medical History (Updated 08/06/24 @ 11:42 by Cassidy Kennedy DO) Diabetes HLD (hyperlipidemia) HTN (hypertension) Surgical History Surgical History (Updated 08/06/24 @ 08:16 by Corey Bahena RN) History of bladder surgery Social History Social History (Updated 08/06/24 @ 08:16 by Corey Bahena, NEHAL) Smoking Status: Current every day smoker If you are a former smoker, when did you quit? (Date/Year): 50 Number of Years Smoked: 50 How many cigarettes a day do you smoke? (20 cigarettes=1 Pk): 10 Second hand tobacco smoke exposure: Yes Do you dip or chew tobacco?: No Do you vape?: No Patient requests smoking cessation consult: No Initiate information on smoking cessation: No Living arrangement: At home Relationship: Level: Independent Do you feel safe in your home environment?: Yes Suffered physical, verbal, emotional, or financial abuse?: No History of Abuse: No Frequency: Occasional Substance Use: denies use POLST Patient has POLST: No Exam Exam tachycardic, tachypneic. Sats 87% RA and only to 91-92% with NC. Constitutional normal general appearance, distress noted (moderate) (seems to have some work of breathing and uncomfortable due to dyspnea. Improved with oxygen. ) and average body habitus HENMT normocephalic, TMs normal bilaterally and oropharynx normal Lymph no lymphadenopathy noted Chest inspection of chest normal Respiratory breath sounds unequal, abnormal respiratory effort (labored), auscultation abnormal (diminished breath sound) (mainly right mid lung and lower lung bee. ) and wheezing noted (expiratory wheezes) Cardiovascular heart rate abnormal (tachycardic), regular rhythm noted, no murmur and no edema Gastrointestinal abdomen soft to palpation and nontender to palpation Extremities no tenderness (tenderness both anterior lower legs which he states is common due to fibro.) Neurology speech normal Psychiatry mental status grossly normal, oriented x3 and thought process abnormality noted (somewhat slow processing.) Results Vitals Vitals: Vital Signs - 24 hr 08/06/24 08:06 08/06/24 08:27 08/06/24 08:27 Temperature 37.1 C Temperature Source Oral Pulse Rate 121 H 118 H Respiratory Rate 20 24 Blood Pressure 162/93 H 173/95 H O2 Saturation 92 88 L Oxygen Delivery Method Nasal Cannula O2 Source Room air Room air Oxygen Flow Rate 2 If not protocol: Oxygen Flow, liters/minute Pain Intensity 10 10 08/06/24 08:28 08/06/24 08:29 08/06/24 09:07 Temperature Temperature Source Pulse Rate 114 H Respiratory Rate 24 Blood Pressure 133/81 H O2 Saturation 91 L 91 L Oxygen Delivery Method Nasal Cannula O2 Source Nasal cannula Nasal cannula Oxygen Flow Rate If not protocol: Oxygen Flow, liters/minute 2 2 2 Pain Intensity 10 10 08/06/24 09:34 08/06/24 09:34 08/06/24 10:08 Temperature Temperature Source Pulse Rate 115 H 123 H Respiratory Rate 20 24 Blood Pressure 143/115 H O2 Saturation 91 L Oxygen Delivery Method Nasal Cannula O2 Source Room air Room air Oxygen Flow Rate 2 If not protocol: Oxygen Flow, liters/minute Pain Intensity 8 08/06/24 10:19 08/06/24 10:19 08/06/24 10:24 Temperature 37.6 C Temperature Source Temporal Artery Scan Pulse Rate 121 H 119 H Respiratory Rate 22 23 Blood Pressure 129/77 O2 Saturation 87 L 90 L Oxygen Delivery Method Nasal Cannula O2 Source Room air Nasal cannula Oxygen Flow Rate 2 If not protocol: Oxygen Flow, liters/minute 2 Pain Intensity Oxygen O2 Source Nasal cannula Oxygen Flow Rate 2 EKG (time done) 10:42: EKG releavant findings:: EKG personally interpreted by author of this note. Relevant findings are: Rate: Rate (enter#) (115) Rhythm: Sinus tachycardia [place]: Normal Intervals: Normal GA QRS: QRS normal Ischemia: Normal ST segments; No ST elevation c/w ischemia Labs Labs: Laboratory Tests 08/06/24 08/06/24 08/06/24 08:20 09:31 09:33 WBC 20.5 H RBC 6.39 H Hgb 19.3 H Hct 57.0 H MCV 89.2 MCH 30.2 MCHC 33.9 RDW 13.2 Plt Count 223 MPV 11.1 Neut # (Auto) 17.5 H Lymph # (Auto) 1.3 L Green # (Auto) 1.3 H Eos # (Auto) 0.1 Baso # (Auto) 0.1 Absolute Nucleated RBC 0.00 Nucleated RBC % 0.0 Manual Slide Review Indicated WBC Morphology NORMAL APPEARANCE Platelet Estimate NORMAL (130-450,000) Platelet Morphology NORMAL APPEARANCE RBC Morph Micro Appear NORMAL APPEARANCE Sodium 127 L Potassium 4.6 H Chloride 100 L Carbon Dioxide 23 Anion Gap 4.0 L BUN 15 Creatinine 0.9 Estimated GFR (MDRD) 83 L Glucose 328 H Estimat Average Glucose 275 H Hemoglobin A1c % 11.2 H Lactic Acid 1.5 Calcium 9.8 Magnesium 2.0 Total Bilirubin 0.9 AST 15 ALT 15 Alkaline Phosphatase 81 Total Protein 8.0 Albumin 4.8 Globulin 3.2 Albumin/Globulin Ratio 1.5 Lipase 256 H Nasal Adenovirus (PCR) NOT DETECTED Nasal B. parapertussis DNA (PCR) NOT DETECTED Nasal Coronavir 229E PCR NOT DETECTED Nasal Coronavir HKU1 PCR NOT DETECTED Nasal Coronavir NL63 PCR NOT DETECTED Nasal Coronavir OC43 PCR NOT DETECTED Nasal Enterovir/Rhinovir PCR DETECTED A Nasal Influenza B PCR NOT DETECTED Nasal Influenza A PCR NOT DETECTED Nasal Parainfluen 1 PCR NOT DETECTED Nasal Parainfluen 2 PCR NOT DETECTED Nasal Parainfluen 3 PCR NOT DETECTED Nasal Parainfluen 4 PCR NOT DETECTED Nasal RSV (PCR) NOT DETECTED Nasal B.pertussis DNA PCR NOT DETECTED Nasal C.pneumoniae (PCR) NOT DETECTED Geovanny Human Metapneumo PCR NOT DETECTED Nasal M.pneumoniae (PCR) NOT DETECTED Nasal SARS-CoV-2 (PCR) NOT DETECTED Ethyl Alcohol < 10.0 Rads (name of study) chest xray: Interpretation: FINDINGS: Surgical changes and devices: None. Lungs and pleura: No pleural effusions or pneumothorax. Groundglass opacification of the lingula and right middle lobe. Mediastinum: Mediastinal contours appear normal. Heart size is normal. Bones and chest wall: No suspicious bony lesions. Overlying soft tissues appear unremarkable. IMPRESSION: Right middle lobe and lingular atelectasis versus pneumonia PD Medical Decision Making ED course Complexity details: reviewed results (PCR positive for rhinovirus. WBC 20.5K with left shift, chemistry showing sodium 127, K 4.6, creatinine good at 0.9, lipase iterstingly elevated 256 but pt wihtout abd tenderness per se. Does have history of fairly regular alchol use. To recheck labs in hospital. ), re-evalu ated patient (he is low sats initially but increased with NC, and improved ore with nebulizer treatment. CXR showing infiltrates c/w pneumonia and concordant with symptoms. Given IV abx. ), considered differential (sounds likely viral URi with now secondary pneumonia. ) and d/w groundwater consultant (hospitalist, who agrees with indications for admission and will see the patient. ) ED course: The patient was visiting family in the [facility] for the past month. He developed illness down there with cough and congestion and runny nose. This had been for couple of weeks and in the last several days has had increased cough dyspnea and sputum production. General weakness. Presents to the ER with vitals showing tachycardia and hypoxia with sats of 87%. Afebrile at this time. No history of heart disease nor COPD/asthma. On evaluation there is no labored breathing but he does have diminished sounds particularly on the right with some coarseness and a general wheeziness. Oxygenation was adequate on 2 L nasal cannula. He was given some IV fluids. With consideration of pneumonia he was given Rocephin and Zithromax. Chest x-ray showing pneumonic process particularly right middle lobe. I presume he has a secondary pneumonia on top of positive rhinovirus respiratory panel. He does have enough markers with tachycardia and hypoxia and elevated white coun t that I feel hospitalization is appropriate. Contact was made with the hospitalist who is in agreement. Lactate is negative. Blood pressure is good. He does not appear to be in severe sepsis. Respiratory status does not look like he is having impending failure. Discharge Plan Discharge Patient Disposition: [facility] DC/Xfer Condition: Stable Clinical Impression: Pneumonia, Hypoxia, Leukocytosis, Rhinovirus infection, SIRS due to infectious process with acute organ dysfunction Interventions: ED Admission Assessment Last Done: 08/06/24 11:35
--- NOTE | 2024-08-06 09:19 | XRAY Report ---
PROCEDURE: XR Chest 2V INDICATIONS: cough/SOA TECHNIQUE: 2 views of the chest were acquired. COMPARISON: Low-dose chest CT 05/02/2024 FINDINGS: Surgical changes and devices: None. Lungs and pleura: No pleural effusions or pneumothorax. Groundglass opacification of the lingula and right middle lobe. Mediastinum: Mediastinal contours appear normal. Heart size is normal. Bones and chest wall: No suspicious bony lesions. Overlying soft tissues appear unremarkable. IMPRESSION: Right middle lobe and lingular atelectasis versus pneumonia. Reviewed by: Valentin Seymour MD on 08/06/2024 9:18 AM PST Approved by: Valentin Seymour MD on 08/06/2024 9:18 AM PST Station ID: [id number]
[2024-08-06] MEDS: ALBUTEROL NEB 2.5 MG/3 ML INH STA ×2 (09:34→11:34)
[2024-08-06 09:43] LABS: B. PARAPERTUSSIS- RESP PCR PAN NOT DETECTED; B. PERTUSSIS- RESP PCR PANEL NOT DETECTED; C. PNEUMONIAE- RESP PCR PANEL NOT DETECTED; CORONAVIRUS 229E-RESP PCR NOT DETECTED; CORONAVIRUS HKU1-RESP PCR NOT DETECTED; CORONAVIRUS NL63-RESP PCR NOT DETECTED; CORONAVIRUS OC43-RESP PCR NOT DETECTED; HUMAN METAPNEUMOVIRUS NOT DETECTED; INFLUENZA A- RESP PCR PANEL NOT DETECTED; INFLUENZA B - RESP PCR PANEL NOT DETECTED; M. PNEUMONIAE- RESP PCR PANEL NOT DETECTED; PARAINFLUENZA VIRUS 1 NOT DETECTED; PARAINFLUENZA VIRUS 2 NOT DETECTED; PARAINFLUENZA VIRUS 4 NOT DETECTED; RHINOVIRUS/ENTEROVIRUS DETECTED; RSV- RESP PCR PANEL NOT DETECTED; SARS-CoV-2 -RESP PCR PANEL NOT DETECTED
[2024-08-06 09:47] LABS: BASOPHILS # (AUTO) 0.1 10^3/uL (0.0-0.1); BASOPHILS % (AUTO) 0.5 %; EOSINOPHILS # (AUTO) 0.1 10^3/uL (0.0-0.7); EOSINOPHILS % (AUTO) 0.5 %; HGB - HEMOGLOBIN 19.3 g/dL (14.0-18.0); LYMPHOCYTES # (AUTO) 1.3 10^3/uL (1.5-3.5); LYMPHOCYTES % (AUTO) 6.4 %; MEAN CORPUSCULAR HEMOGLOBIN 30.2 pg (27.0-31.0); MEAN CORPUSCULAR HGB CONC 33.9 g/dL (32.0-36.0); MEAN CORPUSCULAR VOLUME 89.2 fL (80.0-94.0); MEAN PLATELET VOLUME 11.1 fL (7.4-11.4); MONOCYTES # (AUTO) 1.3 10^3/uL (0.0-1.0); MONOCYTES % (AUTO) 6.2 %; NEUTROPHILS # (AUTO) 17.5 10^3/uL (1.5-6.6); NEUTROPHILS % (AUTO) 85.7 %; PLT - PLATELET COUNT 223 10^3/uL (130-450); RED BLOOD COUNT 6.39 10^6/uL (4.70-6.10); RED CELL DISTRIBUTION WIDTH 13.2 % (12.0-15.0); WHITE BLOOD COUNT 20.5 x10^3/uL (4.8-10.8)
[2024-08-06 09:57] LABS: ALBUMIN 4.8 g/dL (3.2-5.5); ALBUMIN/GLOBULIN RATIO 1.5 (1.0-2.2); ALKALINE PHOSPHATASE 81 IU/L (42-121); ALT ALANINE AMINOTRANSFERASE 15 IU/L (10-60); AST ASPARTATE AMINOTRANSFERASE 15 IU/L (10-42); BILIRUBIN,TOTAL 0.9 mg/dL (0.2-1.0); BUN - BLOOD UREA NITROGEN 15 mg/dL (6-20); CALCIUM 9.8 mg/dL (8.5-10.3); CARBON DIOXIDE - CO2 23 mmol/L (21-32); CHLORIDE 100 mmol/L (101-111); CREATININE 0.9 mg/dL (0.6-1.3); ETOH - ETHANOL < 10.0 mg/dL; GFR - MDRD 83 (>89); GLUCOSE 328 mg/dL (74-104); LIPASE 256 U/L (11-82); POTASSIUM 4.6 mmol/L (3.5-4.5); SODIUM 127 mmol/L (135-145)
[2024-08-06] MEDS: cefTRIAXone 1 GM VIAL IVP STA (10:05)
[2024-08-06] MEDS: AZITHROMYCIN 250 MG TABLET PO STA (10:05)
[2024-08-06 10:09] LABS: PLATELET ESTIMATE, MANUAL NORMAL (130-450,000) (NORMAL); PLATELET MORPHOLOGY NORMAL APPEARANCE (NORMAL); RBC MORPHOLOGY (MULTIPLE) NORMAL APPEARANCE (NORMAL); SLIDE REVIEW? Indicated; WBC MORPHOLOGY (MULTIPLE) NORMAL APPEARANCE (NORMAL)
[2024-08-06] MEDS ORDERED: SODIUM CHLORIDE FLUSH 0.9% 10 ML SYRINGE IVP PRN (10:41)
[2024-08-06] MEDS ORDERED: ACETAMINOPHEN 325 MG TABLET PO PRN (10:41)
[2024-08-06] MEDS ORDERED: ONDANSETRON ODT 4 MG TABLET TL PRN (10:41)
[2024-08-06 10:59] LABS: ESTIMATED AVERAGE GLUCOSE 275 mg/dL (70-100); HEMOGLOBIN A1c% 11.2 % (4.27-6.07)
--- NOTE | 2024-08-06 11:08 | HISTORY & PHYSICAL EXAMINATION ---
Chief Complaint Chief Complaint Chief Complaint: Cough, not feeling well History of Present Illness History of Present Illness HPI Comment/Other: This is a 74-year-old male with a past medical history of diabetes, hypertension, hyperlipidemia, sleep apnea, recent diagnosis of bladder cancer status post transurethral resection (12/2023) and erythrocytosis followed by oncology (05/2024), pending bone marrow biopsy, who presents with cough and not feeling well for 2 to 3 days. Patient just recently visited his home and [place], and thinks he caught a cold during the airplane journey home. Patient denies chest pain, nausea or vomiting. Patient is a 2 cigarettes a day smoker and a every other day 2 shots drinker. ED labs indicated rhinovirus positive, elevated white blood cell count of 20.5, hemoglobin of 19.3, Chemistry indicated elevated glucose 328, slight hyponatremia and slight hyperkalemia and elevated lipase of 256, normal lactate. Chest x-ray indicates right middle lobe and lingular atelectasis versus pneumonia. Patient was started on Rocephin, azithromycin in the ED and fluid resuscitation. Patient is full code Meds/Allgy Home Medications Ambulatory Orders Medication Instructions Recorded Confirmed aspirin 81 mg tablet,delayed 81 mg PO BID 05/24/14 08/06/24 release (Aspir-) glipizide 10 mg tablet 5 mg PO DAILY 05/24/14 08/06/24 metformin 1,000 mg tablet 1,000 mg PO BID 05/24/14 08/06/24 atorvastatin 20 mg tablet 20 mg ORAL QPM 09/24/20 08/06/24 insulin glargine 100 unit/mL (3 35 unit subcut DAILY 12/14/23 08/06/24 mL) subcutaneous pen (Lantus Solostar U-100 Insulin) sildenafil 25 mg tablet (Viagra) 100 mg PO HS PRN As Needed Per 12/14/23 08/06/24 Provider Orders tamsulosin 0.4 mg capsule 0.4 mg PO DAILY 12/14/23 08/06/24 lisinopril 40 mg tablet 40 mg PO DAILY 08/06/24 08/06/24 Allergies Allergies Allergy/AdvReac Type Severity Reaction Status Date / Time No Known Drug Allergies Allergy Verified 08/06/24 08:06 [facility] Medical History Medical History (Updated 08/06/24 @ 11:42 by Cassidy Kennedy DO) Diabetes HLD (hyperlipidemia) HTN (hypertension) Surgical History Surgical History (Updated 08/06/24 @ 08:16 by Corey Bahena, RN) History of bladder surgery Social History Social History (Updated 08/06/24 @ 08:16 by Corey Bahena, RN) Smoking Status: Current every day smoker If you are a former smoker, when did you quit? (Date/Year): 50 Number of Years Smoked: 1 (DONT REMEMBER WHEN STARTED) How many cigarettes a day do you smoke? (20 cigarettes=1 Pk): 10 Do you dip or chew tobacco?: No Patient requests smoking cessation consult: No Initiate information on smoking cessation: No Living arrangement: At home Relationship: Level: Independent Do you feel safe in your home environment?: Yes Suffered physical, verbal, emotional, or financial abuse?: No History of Abuse: No Frequency: Occasional Substance Use: denies use POLST Patient has POLST: No Review of Systems Status of ROS: 10 or more systems reviewed and unremarkable except as noted in history and below Exam Constitutional normal general appearance and no apparent distress HENMT normocephalic Eyes PERRL and EOMs intact bilaterally Bloodshot conjunctivae Neck/C-Spine visual inspection normal and trachea midline Chest inspection of chest normal Respiratory breath sounds equal bilaterally and normal respiratory effort Cardiovascular normal heart rate noted and regular rhythm noted Gastrointestinal abdomen normal to inspection and abdomen soft to palpation Extremities normal to inspection and normal to palpation Neurology welder metal fab II-XII intact and no movement abnormality noted Skin skin color normal and no rash Conclusion/Plan Problem List (1) Diabetes: Plan: Poorly controlled diabetes, recent A1c is 11.2. Patient is on home dose glipizide, metformin and Lantus. Start patient on insulin sliding scale, monitor blood glucose, Adjust Lantus dosing per insulin use. (2) Erythrocytosis: Plan: Hemoglobin is 16.2. Indicative of polycythemia. Patient has follow-up appointments with heme/oncology, pending bone marrow biopsy (3) Bladder cancer: Plan: Patient is status post transurethral resection for bladder cancer diagnosed in December 2023. He is seen by heme/onc. Qualifiers: Bladder location: posterior wall Qualified Code(s): C67.4 - Malignant neoplasm of posterior wall of bladder (4) Leukocytosis: Plan: Secondary to infective etiology most likely community-acquired pneumonia. Start patient on Rocephin and azithromycin for community-acquired pneumonia. (5) Community acquired pneumonia: Plan: Patient is positive for rhinovirus on respiratory viral panel. Most likely patient has a overgrowth of bacterial pneumonia. Start patient on Rocephin, azithromycin. Conservative supportive measures for Rhinovirus infection (6) Sepsis: Plan: Likely secondary to community-acquired pneumonia. Monitor leukocytosis, heart rate and respiratory effort. Continue IV fluids, continue IV antibiotics. (7) Pseudohyponatremia: Plan: Taking account patient's hyperglycemia, corrected sodium is 133. (8) Elevated lipase: Plan: Likely secondary to sepsis versus uncontrolled diabetes. Continue to monitor lipase. Upon physical Examination of patient, he has no complaints of abdominal pain upon palpitation. If lipase continues to increase consider CT abdomen. (9) Hyperkalemia: Plan: Likely this will resolve with insulin treatment for his diabetes. No hyperkalemic associated arrhythmia seen on assistant oceanographer potassium. (10) Rhinovirus infection: Plan: pt tested positive for Rhinovirus infection continue supportive measures (IV fluids ...) Resp isolation precautions Lab Results Lab results reviewed: Yes 08/06/24 09:31 08/06/24 09:31 Diagnostic Imaging Results Diagnostic Imaging Results: positive Final report reviewed
[2024-08-06] MEDS: ASPIRIN EC 81 MG TABLET PO SCH (11:44)
[2024-08-06] MEDS: TAMSULOSIN 0.4 MG CAPSULE PO SCH (11:44)
[2024-08-06] MEDS: lisinopriL 20 MG TABLET PO SCH (11:44)
[2024-08-06] MEDS: ENOXAPARIN 40 MG/0.4 ML SYRINGE SUBQ SCH (11:44)
[2024-08-06] MEDS: LACTATED RINGERS 1,000 ML IV SCH ×2 (11:48→20:56)
[2024-08-06] MEDS: INSULIN LISPRO 300 UNIT/3 ML PEN SUBQ SCH ×3 (12:08→21:07)
[2024-08-06] MEDS: SODIUM CHLORIDE FLUSH 0.9% 10 ML SYRINGE IVP SCH (18:12)
--- NOTE | 2024-08-06 20:38 | PROVIDER PROGRESS NOTE ---
Experimental Physicist Note Experimental Physicist Note Experimental Physicist Note: per rn - "Dx: Pnemonia, rhinovirus Patient admitted today for pneumonia. Chest xray showed right middle lobe lingular atelectasis versus pneumonia. Patient is requiring more oxygen on my shift. He was on 2L O2 via NC and only sating in the 90-91%. O2 bumped to 4L O2 and is now sating in the 93-94%. Patient is dyspneic and he is wheezing pretty bad. He has also been running tachycardic. His current heart rate is 120. BP 135/77. Patient is currently on lactated ringers at 100mL. He is eating and drinking well. Do you want to hold off on his fluids? He may also need some lasix and breathing treatment. Please put in any appropriate orders. Thank you!" pt admitted for sepsis decrease ivf rate to 75/hr lasix 20 mg iv x 1 duoneb x 1 cxr now continue close monitoring
[2024-08-06] MEDS: IPRATROPIUM/ALBUTEROL 3 ML NEB INH ONE (20:48)
[2024-08-06] MEDS: FUROSEMIDE 20 MG/2 ML VIAL IVP ONE (20:54)
[2024-08-06] MEDS: ATORVASTATIN 10 MG TABLET PO SCH (20:54)
--- NOTE | 2024-08-06 22:55 | XRAY Report ---
PROCEDURE: XR Chest 1V INDICATIONS: sob TECHNIQUE: One view of the chest was acquired. COMPARISON: CXR earlier today. FINDINGS: Surgical changes and devices: None. Lungs and pleura: No pleural effusions or pneumothorax. Bilateral patchy air space opacity. Mediastinum: Mediastinal contours appear normal. Heart size is normal. Bones and chest wall: No suspicious bony lesions. Overlying soft tissues appear unremarkable. IMPRESSION: Bilateral patchy airspace opacity, increased. This could be due to pulmonary edema or pneumonia. Reviewed by: Rajiv Luz MD on 08/06/2024 10:54 PM PST Approved by: Rajiv Luz MD on 08/06/2024 10:54 PM PST Station ID: [id number]
[2024-08-07] MEDS: guaiFENesin 600 MG TABLET PO SCH (00:17)
[2024-08-07] MEDS ORDERED: ONDANSETRON 4 MG/2 ML VIAL IVP PRN (01:15)
--- NOTE | 2024-08-07 01:23 | PROVIDER PROGRESS NOTE ---
Hairspring Assembler Note Hairspring Assembler Note Hairspring Assembler Note: per rn "Pt admitted for pneumonia with shortness of breath, dyspnea, and positive rhinovirus. Pt's audibly wheezing very loudly and using accessory muscles to breath. RR 28, HR 115-120's. Pt received breathing treatments earlier which did not seem to help. New chest xray from 2300 indicates increased bilateral patchy airspace from previous xray. Would you like to order steroids and/or breathing treatments? Can you please order blood gases and another lactate and any other labs you think may be necessary." abg and lactic ordered lasix 20 mg iv x 1 dose now albuterol and duonebs ordered start budesonide now continue close monitoring and if need be, pt may need to be transferred to icu if requiring higher level of care and bipap support
[2024-08-07] MEDS: FUROSEMIDE 20 MG/2 ML VIAL IVP ONE (01:29)
[2024-08-07 01:38] LABS: ABG BASE EXCESS 1.8 mmol/L (-2.0-3.0); ABG HCO3 26.1 mmol/L (22.0-26.0); ABG OXYGEN SATURATION 95 % (94-98); ABG PCO2 40 mmHg (34-45); ABG PH 7.43 (7.35-7.45); ABG PO2 73 mmHg (80-100); ABG TCO2 27.4 MMOL/L (21.0-29.0); ALLEN TEST POSITIVE
[2024-08-07] MEDS: ALBUTEROL NEB 2.5 MG/3 ML INH PRN (02:12)
[2024-08-07 06:07] LABS: BASOPHILS # (AUTO) 0.1 10^3/uL (0.0-0.1); BASOPHILS % (AUTO) 0.4 %; EOSINOPHILS # (AUTO) 0.5 10^3/uL (0.0-0.7); EOSINOPHILS % (AUTO) 3.4 %; HCT - HEMATOCRIT 53.5 % (42.0-52.0); HGB - HEMOGLOBIN 17.6 g/dL (14.0-18.0); LYMPHOCYTES # (AUTO) 1.3 10^3/uL (1.5-3.5); LYMPHOCYTES % (AUTO) 8.2 %; MEAN CORPUSCULAR HEMOGLOBIN 29.8 pg (27.0-31.0); MEAN CORPUSCULAR HGB CONC 32.9 g/dL (32.0-36.0); MEAN CORPUSCULAR VOLUME 90.5 fL (80.0-94.0); MEAN PLATELET VOLUME 10.6 fL (7.4-11.4); MONOCYTES # (AUTO) 1.4 10^3/uL (0.0-1.0); NEUTROPHILS # (AUTO) 11.9 10^3/uL (1.5-6.6); NEUTROPHILS % (AUTO) 78.6 %; PLT - PLATELET COUNT 187 10^3/uL (130-450); RED BLOOD COUNT 5.91 10^6/uL (4.70-6.10); RED CELL DISTRIBUTION WIDTH 13.2 % (12.0-15.0); WHITE BLOOD COUNT 15.2 x10^3/uL (4.8-10.8)
[2024-08-07] MEDS: BUDESONIDE 0.5 MG/2 ML NEB INH SCH (06:08)
[2024-08-07] MEDS: IPRATROPIUM/ALBUTEROL 3 ML NEB INH SCH (06:08)
[2024-08-07 06:22] LABS: CALCIUM 9.2 mg/dL (8.5-10.3); CREATININE 0.9 mg/dL (0.6-1.3)
--- NOTE | 2024-08-07 09:09 | PROVIDER PROGRESS NOTE ---
Subjective Prog Note Date Prog Note Date: 08/07/24 Prog Note Time: 08:59 Subjective Subjective: This is a 74-year-old male with a past medical history of diabetes, hypertension, hyperlipidemia, sleep apnea, recent diagnosis of bladder cancer status post transurethral resection (12/2023) and erythrocytosis followed by oncology (05/2024), pending bone marrow biopsy, who presents with cough and not feeling well for 2 to 3 days. Patient just recently visited his home and [place], and thinks he caught a cold during the airplane journey home. Patient denies chest pain, nausea or vomiting. Patient is a 2 cigarettes a day smoker and a every other day 2 shots drinker. ED labs indicated rhinovirus positive, elevated white blood cell count of 20.5, hemoglobin of 19.3, Chemistry indicated elevated glucose 328, slight hyponatremia and slight hyperkalemia and elevated lipase of 256, normal lactate. Chest x-ray indicates right middle lobe and lingular atelectasis versus pneumonia. Patient was started on Rocephin, azithromycin in the ED and fluid resuscitation. Patient is full code 08/07/2024: Patient doing well, has no complaints of shortness of breath, nausea or vomiting. No chest pain. Patient does not remember respiratory stress overnight when he was started on high flow nasal cannulaeBy night team. Current Medications Current Medications Current Medications: Current Medications Generic Name Dose Route Start Last Admin Trade Name Freq PRN Reason Stop Dose Admin Acetaminophen 650 mg 08/06/24 10:41 Acetaminophen 325 Mg Tablet PO Q4HR PRN Pain 1 to 4, or Fever Albuterol 2.5 mg 08/07/24 01:11 08/07/24 02:12 Albuterol Neb 2.5 Mg/3 Ml INH 2.5 mg RTQ4H PRN Administration Wheezing Albuterol/Ipratropium 3 ml 08/07/24 07:00 08/07/24 06:08 Ipratropium/Albuterol 3 Ml Neb INH 3 ml RTQ6H SUSANNA Administration Aspirin 81 mg 08/06/24 11:00 08/06/24 20:54 Aspirin Ec 81 Mg Tablet PO 81 mg BID SUSANNA Administration Atorvastatin Calcium 20 mg 08/06/24 21:00 08/06/24 20:54 Atorvastatin 10 Mg Tablet PO 20 mg QPM SUSANNA Administration Budesonide 0.5 mg 08/07/24 07:00 08/07/24 06:08 Budesonide 0.5 Mg/2 Ml Neb INH 0.5 mg RTBID SUSANNA Administration Enoxaparin Sodium 40 mg 08/06/24 11:00 08/06/24 11:44 Enoxaparin 40 Mg/0.4 Ml Syringe SUBQ 40 mg DAILY SUSANNA Administration Guaifenesin 600 mg 08/06/24 23:45 08/07/24 00:17 Guaifenesin 600 Mg Tablet PO 600 mg BID SUSANNA Administration Ceftriaxone Sodium 1 gm/ 100 mls @ 200 mls/hr 08/07/24 09:00 Sodium Chloride IV 08/09/24 23:59 DAILY [facility] Azithromycin 500 mg/ Sodium 250 mls @ 250 mls/hr 08/07/24 09:00 Chloride IV DAILY [facility] Insulin Glargine-yfgn 35 unit 08/07/24 21:00 Insulin Glargine-Yfgn 300 Unit/3 Ml Pen SUBQ QPM [facility] Insulin Human Lispro 3 - 11 unit 08/06/24 21:00 08/07/24 08:15 Insulin Lispro 300 Unit/3 Ml Pen SUBQ 7 unit 0800,1200,1700,2100 [facility] Administration Protocol Lisinopril 40 mg 08/06/24 11:00 08/06/24 11:44 Lisinopril 20 Mg Tablet PO 40 mg DAILY [facility] Administration Ondansetron HCl 4 mg 08/06/24 10:41 Ondansetron Odt 4 Mg Tablet TL Q6HR PRN Nausea / Vomiting Ondansetron HCl 4 mg 08/07/24 01:15 Ondansetron 4 Mg/2 Ml Vial IVP Q8H PRN Nausea / Vomiting Sodium Chloride 10 ml 08/06/24 10:41 Sodium Chloride Flush 0.9% 10 Ml Syringe IVP PRN PRN NEEDED PER PROVIDER ORDERS Sodium Chloride 10 ml 08/06/24 17:00 08/07/24 00:17 Sodium Chloride Flush 0.9% 10 Ml Syringe IVP 10 ml 0100,0900,1700 [facility] Administration Tamsulosin HCl 0.4 mg 08/06/24 11:00 08/06/24 11:44 Tamsulosin 0.4 Mg Capsule PO 0.4 mg DAILY [facility] Administration Objective Vital Signs/Intake & Output Reviewed Vital Signs: Yes Vital Signs: Vital Signs x48h Temp Pulse Pulse Resp BP Pulse Ox O2 Flow Rate 08/07/24 06:09 30 08/07/24 06:09 107 H 20 30 08/07/24 05:19 36.6 C 110 H 24 111/67 96 35 08/07/24 02:12 113 H 24 30 08/07/24 02:06 30 Intake & Output: Intake & Output 08/04/24 08/05/24 08/06/24 08/07/24 23:59 23:59 23:59 23:59 Intake Total 1218 / 1218 590 / 590 Output Total 1000 / 1000 725 / 725 Balance 218 / 218 -135 / -135 Weight (kg) 71 kg 73 kg Objective General Appearance: positive No acute distress and Alert Eyes Bilateral: positive Normal inspection and PERRL ENT: positive ENT inspection nml Neck: positive Nml inspection and Trachea midline Respiratory: positive Chest non-tender and No respiratory distress Cardiovascular: positive Regular rate & rhythm and No murmur Abdomen: positive Non-tender and No organomegaly Skin: positive Color nml and No rash Extremities: positive Non-tender and Full ROM Lab Results 08/07/24 05:54 08/07/24 05:54 Other Labs: Lab Results x24hrs 08/07/24 08/07/24 08/07/24 Range/Units 07:53 07:30 05:54 WBC 15.2 H (4.8-10.8) x10^3/uL RBC 5.91 (4.70-6.10) 10^6/uL Hgb 17.6 (14.0-18.0) g/dL Hct 53.5 H (42.0-52.0) % MCV 90.5 (80.0-94.0) fL MCH 29.8 (27.0-31.0) pg MCHC 32.9 (32.0-36.0) g/dL RDW 13.2 (12.0-15.0) % Plt Count 187 (130-450) 10^3/uL MPV 10.6 (7.4-11.4) fL Neut # (Auto) 11.9 H (1.5-6.6) 10^3/uL Lymph # (Auto) 1.3 L (1.5-3.5) 10^3/uL Faulk # (Auto) 1.4 H (0.0-1.0) 10^3/uL Eos # (Auto) 0.5 (0.0-0.7) 10^3/uL Baso # (Auto) 0.1 (0.0-0.1) 10^3/uL Absolute Nucleated RBC 0.00 x10^3/uL Nucleated RBC % 0.0 /100WBC Manual Slide Review WBC Morphology (NORMAL) Platelet Estimate (NORMAL) Platelet Morphology (NORMAL) RBC Morph Micro Appear (NORMAL) Bld Gas Analysis Time Sample Site ABG pH (7.35-7.45) ABG pCO2 (34-45) mmHg ABG pO2 (80-100) mmHg ABG HCO3 (22.0-26.0) mmol/L ABG Total CO2 (21.0-29.0) MMOL/L ABG O2 Saturation (94-98) % ABG Base Excess (-2.0-3.0) mmol/L Jamey Test O2 Delivery Device O2 Liters/Min LPM Sodium 130 L (135-145) mmol/L Potassium 4.0 (3.5-4.5) mmol/L Chloride 97 L (101-111) mmol/L Carbon Dioxide 24 (21-32) mmol/L Anion Gap 9.0 (6-13) BUN 20 (6-20) mg/dL Creatinine 0.9 (0.6-1.3) mg/dL Estimated GFR (MDRD) 83 L (>89) Glucose 259 H (74-104) mg/dL POC Whole Bld Glucose 271 (70-100) mg/dL Estimat Average Glucose (70-100) mg/dL Hemoglobin A1c % (4.27-6.07) % Lactic Acid 0.7 0.8 (0.5-2.2) mmol/L Calcium 9.2 (8.5-10.3) mg/dL Magnesium (1.7-2.3) mg/dL Total Bilirubin (0.2-1.0) mg/dL AST (10-42) IU/L ALT (10-60) IU/L Alkaline Phosphatase (42-121) IU/L Total Protein (6.4-8.9) g/dL Albumin (3.2-5.5) g/dL Globulin (2.1-4.2) g/dL Albumin/Globulin Ratio (1.0-2.2) Lipase (11-82) U/L Nasal Adenovirus (PCR) Nasal B. parapertussis DNA (PCR) Nasal Coronavir 229E PCR Nasal Coronavir HKU1 PCR Nasal Coronavir NL63 PCR Nasal Coronavir OC43 PCR Nasal Enterovir/Rhinovir PCR Nasal Influenza B PCR Nasal Influenza A PCR Nasal Parainfluen 1 PCR Nasal Parainfluen 2 PCR Nasal Parainfluen 3 PCR Nasal Parainfluen 4 PCR Nasal RSV (PCR) Nasal B.pertussis DNA PCR Nasal C.pneumoniae (PCR) Geovanny Human Metapneumo PCR Nasal M.pneumoniae (PCR) Nasal SARS-CoV-2 (PCR) Ethyl Alcohol mg/dL 08/07/24 08/07/24 08/06/24 Range/Units 01:33 01:25 20:52 WBC (4.8-10.8) x10^3/uL RBC (4.70-6.10) 10^6/uL Hgb (14.0-18.0) g/dL Hct (42.0-52.0) % MCV (80.0-94.0) fL MCH (27.0-31.0) pg MCHC (32.0-36.0) g/dL RDW (12.0-15.0) % Plt Count (130-450) 10^3/uL MPV (7.4-11.4) fL Neut # (Auto) (1.5-6.6) 10^3/uL Lymph # (Auto) (1.5-3.5) 10^3/uL Faulk # (Auto) (0.0-1.0) 10^3/uL Eos # (Auto) (0.0-0.7) 10^3/uL Baso # (Auto) (0.0-0.1) 10^3/uL Absolute Nucleated RBC x10^3/uL Nucleated RBC % /100WBC Manual Slide Review WBC Morphology (NORMAL) Platelet Estimate (NORMAL) Platelet Morphology (NORMAL) RBC Morph Micro Appear (NORMAL) Bld Gas Analysis Time 0134 Sample Site RIGHT RADIAL ABG pH 7.43 (7.35-7.45) ABG pCO2 40 (34-45) mmHg ABG pO2 73 L (80-100) mmHg ABG HCO3 26.1 H (22.0-26.0) mmol/L ABG Total CO2 27.4 (21.0-29.0) MMOL/L ABG O2 Saturation 95 (94-98) % ABG Base Excess 1.8 (-2.0-3.0) mmol/L Jamey Test POSITIVE O2 Delivery Device NASAL CANNULA O2 Liters/Min 5.00 LPM Sodium (135-145) mmol/L Potassium (3.5-4.5) mmol/L Chloride (101-111) mmol/L Carbon Dioxide (21-32) mmol/L Anion Gap (6-13) BUN (6-20) mg/dL Creatinine (0.6-1.3) mg/dL Estimated GFR (MDRD) (>89) Glucose (74-104) mg/dL POC Whole Bld Glucose 366 (70-100) mg/dL Estimat Average Glucose (70-100) mg/dL Hemoglobin A1c % (4.27-6.07) % Lactic Acid 1.1 (0.5-2.2) mmol/L Calcium (8.5-10.3) mg/dL Magnesium (1.7-2.3) mg/dL Total Bilirubin (0.2-1.0) mg/dL AST (10-42) IU/L ALT (10-60) IU/L Alkaline Phosphatase (42-121) IU/L Total Protein (6.4-8.9) g/dL Albumin (3.2-5.5) g/dL Globulin (2.1-4.2) g/dL Albumin/Globulin Ratio (1.0-2.2) Lipase (11-82) U/L Nasal Adenovirus (PCR) Nasal B. parapertussis DNA (PCR) Nasal Coronavir 229E PCR Nasal Coronavir HKU1 PCR Nasal Coronavir NL63 PCR Nasal Coronavir OC43 PCR Nasal Enterovir/Rhinovir PCR Nasal Influenza B PCR Nasal Influenza A PCR Nasal Parainfluen 1 PCR Nasal Parainfluen 2 PCR Nasal Parainfluen 3 PCR Nasal Parainfluen 4 PCR Nasal RSV (PCR) Nasal B.pertussis DNA PCR Nasal C.pneumoniae (PCR) Geovanny Human Metapneumo PCR Nasal M.pneumoniae (PCR) Nasal SARS-CoV-2 (PCR) Ethyl Alcohol mg/dL 08/06/24 08/06/24 08/06/24 Range/Units 16:37 11:43 09:33 WBC (4.8-10.8) x10^3/uL RBC (4.70-6.10) 10^6/uL Hgb (14.0-18.0) g/dL Hct (42.0-52.0) % MCV (80.0-94.0) fL MCH (27.0-31.0) pg MCHC (32.0-36.0) g/dL RDW (12.0-15.0) % Plt Count (130-450) 10^3/uL MPV (7.4-11.4) fL Neut # (Auto) (1.5-6.6) 10^3/uL Lymph # (Auto) (1.5-3.5) 10^3/uL Faulk # (Auto) (0.0-1.0) 10^3/uL Eos # (Auto) (0.0-0.7) 10^3/uL Baso # (Auto) (0.0-0.1) 10^3/uL Absolute Nucleated RBC x10^3/uL Nucleated RBC % /100WBC Manual Slide Review WBC Morphology (NORMAL) Platelet Estimate (NORMAL) Platelet Morphology (NORMAL) RBC Morph Micro Appear (NORMAL) Bld Gas Analysis Time Sample Site ABG pH (7.35-7.45) ABG pCO2 (34-45) mmHg ABG pO2 (80-100) mmHg ABG HCO3 (22.0-26.0) mmol/L ABG Total CO2 (21.0-29.0) MMOL/L ABG O2 Saturation (94-98) % ABG Base Excess (-2.0-3.0) mmol/L Jamey Test O2 Delivery Device O2 Liters/Min LPM Sodium (135-145) mmol/L Potassium (3.5-4.5) mmol/L Chloride (101-111) mmol/L Carbon Dioxide (21-32) mmol/L Anion Gap (6-13) BUN (6-20) mg/dL Creatinine (0.6-1.3) mg/dL Estimated GFR (MDRD) (>89) Glucose (74-104) mg/dL POC Whole Bld Glucose 300 340 (70-100) mg/dL Estimat Average Glucose 275 H (70-100) mg/dL Hemoglobin A1c % 11.2 H (4.27-6.07) % Lactic Acid (0.5-2.2) mmol/L Calcium (8.5-10.3) mg/dL Magnesium (1.7-2.3) mg/dL Total Bilirubin (0.2-1.0) mg/dL AST (10-42) IU/L ALT (10-60) IU/L Alkaline Phosphatase (42-121) IU/L Total Protein (6.4-8.9) g/dL Albumin (3.2-5.5) g/dL Globulin (2.1-4.2) g/dL Albumin/Globulin Ratio (1.0-2.2) Lipase (11-82) U/L Nasal Adenovirus (PCR) Nasal B. parapertussis DNA (PCR) Nasal Coronavir 229E PCR Nasal Coronavir HKU1 PCR Nasal Coronavir NL63 PCR Nasal Coronavir OC43 PCR Nasal Enterovir/Rhinovir PCR Nasal Influenza B PCR Nasal Influenza A PCR Nasal Parainfluen 1 PCR Nasal Parainfluen 2 PCR Nasal Parainfluen 3 PCR Nasal Parainfluen 4 PCR Nasal RSV (PCR) Nasal B.pertussis DNA PCR Nasal C.pneumoniae (PCR) Geovanny Human Metapneumo PCR Nasal M.pneumoniae (PCR) Nasal SARS-CoV-2 (PCR) Ethyl Alcohol mg/dL 08/06/24 08/06/24 Range/Units 09:31 08:20 WBC 20.5 H (4.8-10.8) x10^3/uL RBC 6.39 H (4.70-6.10) 10^6/uL Hgb 19.3 H (14.0-18.0) g/dL Hct 57.0 H (42.0-52.0) % MCV 89.2 (80.0-94.0) fL MCH 30.2 (27.0-31.0) pg MCHC 33.9 (32.0-36.0) g/dL RDW 13.2 (12.0-15.0) % Plt Count 223 (130-450) 10^3/uL MPV 11.1 (7.4-11.4) fL Neut # (Auto) 17.5 H (1.5-6.6) 10^3/uL Lymph # (Auto) 1.3 L (1.5-3.5) 10^3/uL Faulk # (Auto) 1.3 H (0.0-1.0) 10^3/uL Eos # (Auto) 0.1 (0.0-0.7) 10^3/uL Baso # (Auto) 0.1 (0.0-0.1) 10^3/uL Absolute Nucleated RBC 0.00 x10^3/uL Nucleated RBC % 0.0 /100WBC Manual Slide Review Indicated WBC Morphology NORMAL APPEARANCE (NORMAL) Platelet Estimate NORMAL (130-450,000) (NORMAL) Platelet Morphology NORMAL APPEARANCE (NORMAL) RBC Morph Micro Appear NORMAL APPEARANCE (NORMAL) Bld Gas Analysis Time Sample Site ABG pH (7.35-7.45) ABG pCO2 (34-45) mmHg ABG pO2 (80-100) mmHg ABG HCO3 (22.0-26.0) mmol/L ABG Total CO2 (21.0-29.0) MMOL/L ABG O2 Saturation (94-98) % ABG Base Excess (-2.0-3.0) mmol/L Jamey Test O2 Delivery Device O2 Liters/Min LPM Sodium 127 L (135-145) mmol/L Potassium 4.6 H (3.5-4.5) mmol/L Chloride 100 L (101-111) mmol/L Carbon Dioxide 23 (21-32) mmol/L Anion Gap 4.0 L (6-13) BUN 15 (6-20) mg/dL Creatinine 0.9 (0.6-1.3) mg/dL Estimated GFR (MDRD) 83 L (>89) Glucose 328 H (74-104) mg/dL POC Whole Bld Glucose (70-100) mg/dL Estimat Average Glucose (70-100) mg/dL Hemoglobin A1c % (4.27-6.07) % Lactic Acid 1.5 (0.5-2.2) mmol/L Calcium 9.8 (8.5-10.3) mg/dL Magnesium 2.0 (1.7-2.3) mg/dL Total Bilirubin 0.9 (0.2-1.0) mg/dL AST 15 (10-42) IU/L ALT 15 (10-60) IU/L Alkaline Phosphatase 81 (42-121) IU/L Total Protein 8.0 (6.4-8.9) g/dL Albumin 4.8 (3.2-5.5) g/dL Globulin 3.2 (2.1-4.2) g/dL Albumin/Globulin Ratio 1.5 (1.0-2.2) Lipase 256 H (11-82) U/L Nasal Adenovirus (PCR) NOT DETECTED Nasal B. parapertussis DNA (PCR) NOT DETECTED Nasal Coronavir 229E PCR NOT DETECTED Nasal Coronavir HKU1 PCR NOT DETECTED Nasal Coronavir NL63 PCR NOT DETECTED Nasal Coronavir OC43 PCR NOT DETECTED Nasal Enterovir/Rhinovir PCR DETECTED A Nasal Influenza B PCR NOT DETECTED Nasal Influenza A PCR NOT DETECTED Nasal Parainfluen 1 PCR NOT DETECTED Nasal Parainfluen 2 PCR NOT DETECTED Nasal Parainfluen 3 PCR NOT DETECTED Nasal Parainfluen 4 PCR NOT DETECTED Nasal RSV (PCR) NOT DETECTED Nasal B.pertussis DNA PCR NOT DETECTED Nasal C.pneumoniae (PCR) NOT DETECTED Geovanny Human Metapneumo PCR NOT DETECTED Nasal M.pneumoniae (PCR) NOT DETECTED Nasal SARS-CoV-2 (PCR) NOT DETECTED Ethyl Alcohol < 10.0 mg/dL Diagnostic Imaging Diagnostic Imaging Results: positive Final report reviewed Other Results/Comments Other Results/Comments: Conclusion/Plan Problem List (1) Diabetes: Plan: Poorly controlled diabetes, recent A1c is 11.2. Start patient on home Lantus regimen, continue sliding scale. Patient may need an increase of Lantus at discharge. (2) Erythrocytosis: Plan: Indicative of polycythemia. Patient has follow-up appointments with heme/oncology, pending bone marrow biopsy (3) Bladder cancer: Plan: Patient is status post transurethral resection for bladder cancer diagnosed in December 2023. He is seen by heme/onc. (4) Leukocytosis: Plan: It has improved from 20.5-15.2. Continue patient on Rocephin, azithromycin for possible community-acquired pneumonia in the background of active rhino virus infection (5) Community acquired pneumonia: Plan: Continue Rocephin, azithromycin.(2/5) Conservative supportive measures for Rhinovirus infection (6) Sepsis: Plan: Likely secondary to community-acquired pneumonia. Monitor leukocytosis, heart rate and respiratory effort. Continue IV fluids, continue IV antibiotics. (7) Pseudohyponatremia: Plan: corrected Na = 133 monitor (8) Elevated lipase: Plan: monitor Likely secondary to sepsis versus uncontrolled diabetes. (9) Hyperkalemia: Plan: resolved (10) Rhinovirus infection: Plan: pt tested positive for Rhinovirus infection continue supportive measures Resp isolation precautions Lab Results Lab results reviewed: Yes
[2024-08-07] MEDS: cefTRIAXone 1 GM in SODIUM CHLORIDE 0.9% MINIBAG 100 ML IV SCH (09:19)
[2024-08-07] MEDS: AZITHROMYCIN INJ 500 MG in SODIUM CHLORIDE 0.9% 250 ML IV SCH (09:58)
--- NOTE | 2024-08-07 15:51 | PHARMACY PROGRESS NOTE ---
Best Possible Medication History Admit Date and Time: 08/07/24 [id number] Home Medications Medication Instructions Recorded Confirmed Type aspirin 81 mg tablet,delayed 81 mg PO BID 05/24/14 08/06/24 History release (Aspir-) glipizide 10 mg tablet 5 mg PO DAILY 05/24/14 08/06/24 History metformin 1,000 mg tablet 1,000 mg PO BID 05/24/14 08/06/24 History atorvastatin 20 mg tablet 20 mg ORAL QPM 09/24/20 08/06/24 History insulin glargine 100 unit/mL (3 35 unit subcut DAILY 12/14/23 08/06/24 History mL) subcutaneous pen (Lantus Solostar U-100 Insulin) sildenafil 25 mg tablet (Viagra) 100 mg PO HS PRN As Needed Per 12/14/23 08/06/24 History Provider Orders tamsulosin 0.4 mg capsule 0.4 mg PO DAILY 12/14/23 08/06/24 History lisinopril 40 mg tablet 40 mg PO DAILY 08/06/24 History Processed by: Pharmacy Medications reviewed in ED?: No Medication History completed: Yes Patient Interview: Completed Secondary Source(s): Insurance records (unable to confirm lisinopril. looks like fill from July has not been picked up, patient might be out of this medication currently) [facility] Statement: As the person ultimately responsible for medication therapy, providers are able to order a medication from an existing home medication list in [facility] via the "Reconcile Routine" prior to Confirmation of that medication by legal support analyst. Such practice is discouraged except when the physician, in their clinical judgment, deems that a medical need exists for a medication without regard to previous use.
[2024-08-07] MEDS: INSULIN GLARGINE-YFGN 300 UNIT/3 ML PEN SUBQ SCH (21:54)
[2024-08-08 06:19] LABS: BASOPHILS % (AUTO) 0.2 %; EOSINOPHILS # (AUTO) 0.4 10^3/uL (0.0-0.7); EOSINOPHILS % (AUTO) 3.9 %; HCT - HEMATOCRIT 49.7 % (42.0-52.0); HGB - HEMOGLOBIN 16.8 g/dL (14.0-18.0); LYMPHOCYTES # (AUTO) 1.3 10^3/uL (1.5-3.5); LYMPHOCYTES % (AUTO) 11.2 %; MEAN CORPUSCULAR HEMOGLOBIN 30.7 pg (27.0-31.0); MEAN CORPUSCULAR HGB CONC 33.8 g/dL (32.0-36.0); MEAN CORPUSCULAR VOLUME 90.7 fL (80.0-94.0); MEAN PLATELET VOLUME 11.1 fL (7.4-11.4); NEUTROPHILS # (AUTO) 8.4 10^3/uL (1.5-6.6); NEUTROPHILS % (AUTO) 75.3 %; PLT - PLATELET COUNT 190 10^3/uL (130-450); RED BLOOD COUNT 5.48 10^6/uL (4.70-6.10); RED CELL DISTRIBUTION WIDTH 13.2 % (12.0-15.0); WHITE BLOOD COUNT 11.2 x10^3/uL (4.8-10.8)
[2024-08-08 06:43] LABS: CALCIUM 8.5 mg/dL (8.5-10.3); CREATININE 0.9 mg/dL (0.6-1.3); POTASSIUM 3.8 mmol/L (3.5-4.5)
[2024-08-08] MEDS: methylPREDNISolone SUCCINATE 40 MG/ML VIAL IVP SCH (08:26)
--- NOTE | 2024-08-08 12:05 | PROVIDER PROGRESS NOTE ---
Subjective Prog Note Date Prog Note Date: 08/08/24 Prog Note Time: 11:58 Subjective Subjective: This is a 74-year-old male with a past medical history of diabetes, hypertension, hyperlipidemia, sleep apnea, recent diagnosis of bladder cancer status post transurethral resection (12/2023) and erythrocytosis followed by oncology (05/2024), pending bone marrow biopsy, who presents with cough and not feeling well for 2 to 3 days. Patient just recently visited his home and [place], and thinks he caught a cold during the airplane journey home. Patient denies chest pain, nausea or vomiting. Patient is a 2 cigarettes a day smoker and a every other day 2 shots drinker. ED labs indicated rhinovirus positive, elevated white blood cell count of 20.5, hemoglobin of 19.3, Chemistry indicated elevated glucose 328, slight hyponatremia and slight hyperkalemia and elevated lipase of 256, normal lactate. Chest x-ray indicates right middle lobe and lingular atelectasis versus pneumonia. Patient was started on Rocephin, azithromycin in the ED and fluid resuscitation. Patient is full code 08/07/2024: Patient doing well, has no complaints of shortness of breath, nausea or vomiting. No chest pain. Patient does not remember respiratory stress overnight when he was started on high flow nasal cannulae By night team. 08/08/2024: Patient is awake, oriented. Patient has no complaints. Patient denies shortness of breath, nausea. No overnight events. Current Medications Current Medications Current Medications: Current Medications Generic Name Dose Route Start Last Admin Trade Name Freq PRN Reason Stop Dose Admin Acetaminophen 650 mg 08/06/24 10:41 Acetaminophen 325 Mg Tablet PO Q4HR PRN Pain 1 to 4, or Fever Albuterol 2.5 mg 08/07/24 01:11 08/07/24 02:12 Albuterol Neb 2.5 Mg/3 Ml INH 2.5 mg RTQ4H PRN Administration Wheezing Albuterol/Ipratropium 3 ml 08/08/24 07:46 Ipratropium/Albuterol 3 Ml Neb INH Q4HR PRN Wheezing Aspirin 81 mg 08/06/24 11:00 08/08/24 08:25 Aspirin Ec 81 Mg Tablet PO 81 mg BID SUSANNA Administration Atorvastatin Calcium 20 mg 08/06/24 21:00 08/07/24 21:54 Atorvastatin 10 Mg Tablet PO 20 mg QPM SUSANNA Administration Budesonide 0.5 mg 08/08/24 19:00 Budesonide 0.5 Mg/2 Ml Neb INH RTBID [facility] Enoxaparin Sodium 40 mg 08/06/24 11:00 08/08/24 08:31 Enoxaparin 40 Mg/0.4 Ml Syringe SUBQ 40 mg DAILY SUSANNA Administration Guaifenesin 600 mg 08/06/24 23:45 08/08/24 08:26 Guaifenesin 600 Mg Tablet PO 600 mg BID SUSANNA Administration Ceftriaxone Sodium 1 gm/ 100 mls @ 200 mls/hr 08/07/24 09:00 08/08/24 09:05 Sodium Chloride IV 08/09/24 23:59 Infused DAILY SUSANNA Infusion Azithromycin 500 mg/ Sodium 250 mls @ 250 mls/hr 08/07/24 09:00 08/08/24 10:10 Chloride IV Infused DAILY SUSANNA Infusion Insulin Glargine-yfgn 35 unit 08/07/24 21:00 08/07/24 21:54 Insulin Glargine-Yfgn 300 Unit/3 Ml Pen SUBQ 35 unit QPM SUSANNA Administration Insulin Human Lispro 3 - 11 unit 08/06/24 21:00 08/08/24 08:28 Insulin Lispro 300 Unit/3 Ml Pen SUBQ 5 unit 0800,1200,1700,2100 SUSANNA Administration Protocol Lisinopril 40 mg 08/06/24 11:00 08/08/24 08:26 Lisinopril 20 Mg Tablet PO 40 mg DAILY SUSANNA Administration Methylprednisolone 40 mg 08/08/24 08:00 08/08/24 08:26 Methylprednisolone Succinate 40 Mg/Ml Vial IVP 40 mg TID SUSANNA Administration Ondansetron HCl 4 mg 08/06/24 10:41 Ondansetron Odt 4 Mg Tablet TL Q6HR PRN Nausea / Vomiting Ondansetron HCl 4 mg 08/07/24 01:15 Ondansetron 4 Mg/2 Ml Vial IVP Q8H PRN Nausea / Vomiting Sodium Chloride 10 ml 08/06/24 10:41 Sodium Chloride Flush 0.9% 10 Ml Syringe IVP PRN PRN NEEDED PER PROVIDER ORDERS Sodium Chloride 10 ml 08/06/24 17:00 08/08/24 09:34 Sodium Chloride Flush 0.9% 10 Ml Syringe IVP 10 ml 0100,0900,1700 SUSANNA Administration Tamsulosin HCl 0.4 mg 08/06/24 11:00 08/08/24 08:25 Tamsulosin 0.4 Mg Capsule PO 0.4 mg DAILY SUSANNA Administration Objective Vital Signs/Intake & Output Reviewed Vital Signs: Yes Vital Signs: Vital Signs x48h Temp Pulse Pulse Resp BP Pulse Ox O2 Flow Rate 08/08/24 09:00 36.4 C L 77 20 96/60 94 2.5 08/08/24 07:12 3 08/08/24 07:12 98 24 08/08/24 05:00 36.7 C 89 22 97/63 95 3.5 Intake & Output: Intake & Output 08/05/24 08/06/24 08/07/24 08/08/24 23:59 23:59 23:59 23:59 Intake Total 1218 / 1218 1850 / 1850 1565 / 1565 Output Total 1000 / 1000 1800 / 1800 1875 / 1875 Balance 218 / 218 50 / 50 -310 / -310 Weight (kg) 71 kg 73 kg 74.5 kg Objective General Appearance: positive No acute distress and Alert Eyes Bilateral: positive Normal inspection and PERRL ENT: positive ENT inspection nml Neck: positive Nml inspection and Trachea midline Respiratory: positive Chest non-tender, No respiratory distress, Wheezes and Rhonchi Cardiovascular: positive Regular rate & rhythm and No murmur Abdomen: positive Non-tender and No organomegaly Skin: positive Color nml and No rash Extremities: positive Non-tender and Full ROM Lab Results 08/08/24 05:17 08/08/24 05:17 Other Labs: Lab Results x24hrs 08/08/24 08/08/24 08/08/24 Range/Units 11:40 07:33 05:17 WBC 11.2 H (4.8-10.8) x10^3/uL RBC 5.48 (4.70-6.10) 10^6/uL Hgb 16.8 (14.0-18.0) g/dL Hct 49.7 (42.0-52.0) % MCV 90.7 (80.0-94.0) fL MCH 30.7 (27.0-31.0) pg MCHC 33.8 (32.0-36.0) g/dL RDW 13.2 (12.0-15.0) % Plt Count 190 (130-450) 10^3/uL MPV 11.1 (7.4-11.4) fL Neut # (Auto) 8.4 H (1.5-6.6) 10^3/uL Lymph # (Auto) 1.3 L (1.5-3.5) 10^3/uL [place] # (Auto) 1.0 (0.0-1.0) 10^3/uL Eos # (Auto) 0.4 (0.0-0.7) 10^3/uL Baso # (Auto) 0.0 (0.0-0.1) 10^3/uL Absolute Nucleated RBC 0.00 x10^3/uL Nucleated RBC % 0.0 /100WBC Sodium 131 L (135-145) mmol/L Potassium 3.8 (3.5-4.5) mmol/L Chloride 99 L (101-111) mmol/L Carbon Dioxide 26 (21-32) mmol/L Anion Gap 6.0 (6-13) BUN 25 H (6-20) mg/dL Creatinine 0.9 (0.6-1.3) mg/dL Estimated GFR (MDRD) 83 L (>89) Glucose 238 H (74-104) mg/dL POC Whole Bld Glucose 297 210 (70-100) mg/dL Calcium 8.5 (8.5-10.3) mg/dL 08/07/24 08/07/24 Range/Units 21:08 16:44 WBC (4.8-10.8) x10^3/uL RBC (4.70-6.10) 10^6/uL Hgb (14.0-18.0) g/dL Hct (42.0-52.0) % MCV (80.0-94.0) fL MCH (27.0-31.0) pg MCHC (32.0-36.0) g/dL RDW (12.0-15.0) % Plt Count (130-450) 10^3/uL MPV (7.4-11.4) fL Neut # (Auto) (1.5-6.6) 10^3/uL Lymph # (Auto) (1.5-3.5) 10^3/uL [place] # (Auto) (0.0-1.0) 10^3/uL Eos # (Auto) (0.0-0.7) 10^3/uL Baso # (Auto) (0.0-0.1) 10^3/uL Absolute Nucleated RBC x10^3/uL Nucleated RBC % /100WBC Sodium (135-145) mmol/L Potassium (3.5-4.5) mmol/L Chloride (101-111) mmol/L Carbon Dioxide (21-32) mmol/L Anion Gap (6-13) BUN (6-20) mg/dL Creatinine (0.6-1.3) mg/dL Estimated GFR (MDRD) (>89) Glucose (74-104) mg/dL POC Whole Bld Glucose 365 347 (70-100) mg/dL Calcium (8.5-10.3) mg/dL Diagnostic Imaging Diagnostic Imaging Results: positive Final report reviewed Other Results/Comments Other Results/Comments: Conclusion/Plan Problem List (1) Diabetes: Plan: Poorly controlled diabetes, recent A1c is 11.2. Start patient on home Lantus regimen, continue sliding scale. Based on short acting insulin use over 24 hours will recalculate optimal Units of Lantus for home Patient denies noncompliance, patient denies poor diet Patient now on steroids for possible COPD exacerbation (2) Erythrocytosis: Plan: Indicative of polycythemia. Patient has follow-up appointments with heme/oncology, pending bone marrow biopsy (3) Bladder cancer: Plan: Patient is status post transurethral resection for bladder cancer diagnosed in December 2023. He is seen by heme/onc. (4) Leukocytosis: Plan: It has improved from 20.5-15.2 - 11.2 Continue patient on Rocephin, 3/5, azithromycin (2/3) for community-acquired pneumonia in the background of active rhino virus infection (5) Community acquired pneumonia: Plan: Continue Rocephin, azithromycin. On examination today patient sounds quite wheezy with rales And rhonchi. StartScheduled DuoNebs, budesonide and steroids. Patient is a smoker, ? Undiagnosed COPD With acute exacerbation. Conservative supportive measures for Rhinovirus infection (6) Sepsis: Plan: Resolved Continue IV fluids, continue IV antibiotics. (7) Pseudohyponatremia: Plan: corrected Na = 134 monitor (8) Elevated lipase: Plan: monitor Likely secondary to sepsis versus uncontrolled diabetes. (9) Hyperkalemia: Plan: resolved (10) Rhinovirus infection: Plan: pt tested positive for Rhinovirus infection continue supportive measures Lab Results Lab results reviewed: Yes Assessment/Plan Problem List (1) Diabetes: (2) Erythrocytosis: (3) Bladder cancer: Qualifiers: Bladder location: posterior wall Qualified Code(s): C67.4 - Malignant neoplasm of posterior wall of bladder (4) Leukocytosis: (5) Community acquired pneumonia: (6) Sepsis: (7) Pseudohyponatremia: (8) Elevated lipase: (9) Hyperkalemia: (10) Rhinovirus infection:
[2024-08-08] MEDS: IPRATROPIUM/ALBUTEROL 3 ML NEB INH PRN (12:24)
[2024-08-08] MEDS: BUDESONIDE 0.5 MG/2 ML NEB INH SCH (23:39)
[2024-08-09 05:58] LABS: BASOPHILS % (AUTO) 0.1 %; EOSINOPHILS % (AUTO) 0.3 %; HCT - HEMATOCRIT 50.4 % (42.0-52.0); HGB - HEMOGLOBIN 17.1 g/dL (14.0-18.0); LYMPHOCYTES # (AUTO) 1.1 10^3/uL (1.5-3.5); LYMPHOCYTES % (AUTO) 7.3 %; MEAN CORPUSCULAR HEMOGLOBIN 30.4 pg (27.0-31.0); MEAN CORPUSCULAR HGB CONC 33.9 g/dL (32.0-36.0); MEAN CORPUSCULAR VOLUME 89.5 fL (80.0-94.0); MEAN PLATELET VOLUME 10.6 fL (7.4-11.4); MONOCYTES # (AUTO) 0.6 10^3/uL (0.0-1.0); MONOCYTES % (AUTO) 4.5 %; NEUTROPHILS # (AUTO) 12.5 10^3/uL (1.5-6.6); NEUTROPHILS % (AUTO) 87.2 %; PLT - PLATELET COUNT 220 10^3/uL (130-450); RED BLOOD COUNT 5.63 10^6/uL (4.70-6.10); RED CELL DISTRIBUTION WIDTH 12.8 % (12.0-15.0); WHITE BLOOD COUNT 14.4 x10^3/uL (4.8-10.8)
[2024-08-09 06:13] LABS: CALCIUM 9.2 mg/dL (8.5-10.3); CREATININE 0.9 mg/dL (0.6-1.3); POTASSIUM 4.4 mmol/L (3.5-4.5)
[2024-08-09] MEDS: INSULIN LISPRO 300 UNIT/3 ML PEN SUBQ SCH (08:03)
--- NOTE | 2024-08-09 12:17 | PROVIDER PROGRESS NOTE ---
Current Medications Current Medications Current Medications: Current Medications Generic Name Dose Route Start Last Admin Trade Name Freq PRN Reason Stop Dose Admin Acetaminophen 650 mg 08/06/24 10:41 Acetaminophen 325 Mg Tablet PO Q4HR PRN Pain 1 to 4, or Fever Albuterol 2.5 mg 08/07/24 01:11 08/07/24 02:12 Albuterol Neb 2.5 Mg/3 Ml INH 2.5 mg RTQ4H PRN Administration Wheezing Albuterol/Ipratropium 3 ml 08/08/24 07:46 08/08/24 12:24 Ipratropium/Albuterol 3 Ml Neb INH 3 ml Q4HR PRN Administration Wheezing Aspirin 81 mg 08/06/24 11:00 08/09/24 08:06 Aspirin Ec 81 Mg Tablet PO 81 mg BID SUSANNA Administration Atorvastatin Calcium 20 mg 08/06/24 21:00 08/08/24 21:41 Atorvastatin 10 Mg Tablet PO 20 mg QPM SUSANNA Administration Budesonide 0.5 mg 08/08/24 19:00 08/09/24 08:59 Budesonide 0.5 Mg/2 Ml Neb INH 0.5 mg RTBID SUSANNA Administration Enoxaparin Sodium 40 mg 08/06/24 11:00 08/09/24 08:05 Enoxaparin 40 Mg/0.4 Ml Syringe SUBQ 40 mg DAILY SUSANNA Administration Guaifenesin 600 mg 08/06/24 23:45 08/09/24 08:06 Guaifenesin 600 Mg Tablet PO 600 mg BID SUSANNA Administration Ceftriaxone Sodium 1 gm/ 100 mls @ 200 mls/hr 08/07/24 09:00 08/09/24 08:40 Sodium Chloride IV 08/09/24 23:59 Infused DAILY SUSANNA Infusion Insulin Glargine-yfgn 35 unit 08/07/24 21:00 08/08/24 21:43 Insulin Glargine-Yfgn 300 Unit/3 Ml Pen SUBQ 35 unit QPM SUSANNA Administration Insulin Human Lispro 3 - 11 unit 08/06/24 21:00 08/09/24 12:02 Insulin Lispro 300 Unit/3 Ml Pen SUBQ 11 unit 0800,1200,1700,2100 SUSANNA Administration Protocol Insulin Human Lispro 5 unit 08/09/24 08:00 08/09/24 12:04 Insulin Lispro 300 Unit/3 Ml Pen SUBQ 5 unit TIDWM SUSANNA Administration Lisinopril 40 mg 08/06/24 11:00 08/09/24 08:07 Lisinopril 20 Mg Tablet PO 40 mg DAILY SUSANNA Administration Methylprednisolone 40 mg 08/08/24 08:00 08/09/24 06:08 Methylprednisolone Succinate 40 Mg/Ml Vial IVP 40 mg TID SUSANNA Administration Ondansetron HCl 4 mg 08/06/24 10:41 Ondansetron Odt 4 Mg Tablet TL Q6HR PRN Nausea / Vomiting Ondansetron HCl 4 mg 08/07/24 01:15 Ondansetron 4 Mg/2 Ml Vial IVP Q8H PRN Nausea / Vomiting Sodium Chloride 10 ml 08/06/24 10:41 Sodium Chloride Flush 0.9% 10 Ml Syringe IVP PRN PRN NEEDED PER PROVIDER ORDERS Sodium Chloride 10 ml 08/06/24 17:00 08/09/24 08:07 Sodium Chloride Flush 0.9% 10 Ml Syringe IVP 10 ml 0100,0900,1700 SUSANNA Administration Tamsulosin HCl 0.4 mg 08/06/24 11:00 08/09/24 08:06 Tamsulosin 0.4 Mg Capsule PO 0.4 mg DAILY SUSANNA Administration Objective Vital Signs/Intake & Output Vital Signs: Vital Signs x48h Temp Pulse Pulse Resp BP Pulse Ox 08/09/24 09:00 84 18 08/09/24 08:30 97.0 F L 84 24 123/75 91 L Intake & Output: Intake & Output 08/06/24 08/07/24 08/08/24 08/09/24 23:59 23:59 23:59 23:59 Intake Total 1218 / 1218 1850 / 1850 3095 / 3095 440 / 440 Output Total 1000 / 1000 1800 / 1800 2325 / 2325 500 / 500 Balance 218 / 218 50 / 50 770 / 770 -60 / -60 Weight (kg) 71 kg 73 kg 74.5 kg 68.5 kg Lab Results 08/09/24 05:36 08/09/24 05:36 Other Labs: Lab Results x24hrs 08/09/24 08/09/24 08/09/24 Range/Units 11:34 07:42 05:36 WBC 14.4 H (4.8-10.8) x10^3/uL RBC 5.63 (4.70-6.10) 10^6/uL Hgb 17.1 (14.0-18.0) g/dL Hct 50.4 (42.0-52.0) % MCV 89.5 (80.0-94.0) fL MCH 30.4 (27.0-31.0) pg MCHC 33.9 (32.0-36.0) g/dL RDW 12.8 (12.0-15.0) % Plt Count 220 (130-450) 10^3/uL MPV 10.6 (7.4-11.4) fL Neut # (Auto) 12.5 H (1.5-6.6) 10^3/uL Lymph # (Auto) 1.1 L (1.5-3.5) 10^3/uL [place] # (Auto) 0.6 (0.0-1.0) 10^3/uL Eos # (Auto) 0.0 (0.0-0.7) 10^3/uL Baso # (Auto) 0.0 (0.0-0.1) 10^3/uL Absolute Nucleated RBC 0.00 x10^3/uL Nucleated RBC % 0.0 /100WBC Sodium 132 L (135-145) mmol/L Potassium 4.4 (3.5-4.5) mmol/L Chloride 99 L (101-111) mmol/L Carbon Dioxide 26 (21-32) mmol/L Anion Gap 7.0 (6-13) BUN 25 H (6-20) mg/dL Creatinine 0.9 (0.6-1.3) mg/dL Estimated GFR (MDRD) 83 L (>89) Glucose 319 H (74-104) mg/dL POC Whole Bld Glucose 344 308 (70-100) mg/dL Calcium 9.2 (8.5-10.3) mg/dL 08/08/24 08/08/24 08/08/24 Range/Units 20:35 20:32 16:25 WBC (4.8-10.8) x10^3/uL RBC (4.70-6.10) 10^6/uL Hgb (14.0-18.0) g/dL Hct (42.0-52.0) % MCV (80.0-94.0) fL MCH (27.0-31.0) pg MCHC (32.0-36.0) g/dL RDW (12.0-15.0) % Plt Count (130-450) 10^3/uL MPV (7.4-11.4) fL Neut # (Auto) (1.5-6.6) 10^3/uL Lymph # (Auto) (1.5-3.5) 10^3/uL [place] # (Auto) (0.0-1.0) 10^3/uL Eos # (Auto) (0.0-0.7) 10^3/uL Baso # (Auto) (0.0-0.1) 10^3/uL Absolute Nucleated RBC x10^3/uL Nucleated RBC % /100WBC Sodium (135-145) mmol/L Potassium (3.5-4.5) mmol/L Chloride (101-111) mmol/L Carbon Dioxide (21-32) mmol/L Anion Gap (6-13) BUN (6-20) mg/dL Creatinine (0.6-1.3) mg/dL Estimated GFR (MDRD) (>89) Glucose (74-104) mg/dL POC Whole Bld Glucose 391 436 360 (70-100) mg/dL Calcium (8.5-10.3) mg/dL Assessment/Plan Problem List (1) Erythrocytosis: (2) Bladder cancer: Qualifiers: Bladder location: posterior wall Qualified Code(s): C67.4 - Malignant neoplasm of posterior wall of bladder (3) Leukocytosis: (4) Community acquired pneumonia: (5) Sepsis: (6) Pseudohyponatremia: (7) Elevated lipase: (8) Hyperkalemia: (9) Rhinovirus infection:
--- NOTE | 2024-08-09 12:37 | Discharge Summary ---
"Discharge Summary Admit Date: 08/06/24 Discharge Date: 08/09/24 Discharging Provider: Dr. Anant Crespo Code Status: Attempt Resuscitation DIAGNOSES Admission Diagnoses: Diabetes Erythrocytosis Bladder cancer Leukocytosis Community-acquired pneumonia Sepsis Pseudohyponatremia Elevated lipase Hypokalemia Rhinovirus infection Discharge Diagnoses with Status of Each Condition: Acute hypoxic respiratory failure secondary to COPD exacerbation, community- acquired pneumonia, rhinovirusresolved. COPD exacerbationlikely underlying undiagnosed COPD. Will discharge with albuterol inhaler as needed, as well as 4 additional days of prednisone. Patient advised to get PFT testing, and follow-up with primary care physician in the outpatient setting. Agreeable. Community acquired pneumoniacompleted azithromycin course. Will require 2 more days of Augmentin to complete course. Leukocytosiswas resolving, slight bump to 2 starting steroids yesterday likely. Hyponatremiaimproving. Diabetes mellituscontinue home regimen of sliding scale insulin as well as insulin glargine 35 units at night. Continue aspirin, statin. HPI History of Present Illness: Per Dr. Kennedy: This is a 74-year-old male with a past medical history of diabetes, hypertension, hyperlipidemia, sleep apnea, recent diagnosis of bladder cancer status post transurethral resection (12/2023) and erythrocytosis followed by oncology (05/2024), pending bone marrow biopsy, who presents with cough and not feeling well for 2 to 3 days. Patient just recently visited his home and [facility], and thinks he caught a cold during the airplane journey home. Patient denies chest pain, nausea or vomiting. Patient is a 2 cigarettes a day smoker and a every other day 2 shots drinker. ED labs indicated rhinovirus positive, elevated white blood cell count of 20.5, hemoglobin of 19.3, Chemistry indicated elevated glucose 328, slight hyponatremia and slight hyperkalemia and elevated lipase of 256, normal lactate. Chest x-ray indicates right middle lobe and lingular atelectasis versus pneumonia. Patient was started on Rocephin, azithromycin in the ED and fluid resuscitation. Patient is full code CONSULTS | PROCEDURES Procedures: Chest x-ray, chest x-ray HOSPITAL COURSE Hospital Course: Patient is a 74-year-old male with a history of diabetes, hypertension recently diagnosed bladder cancer s/p transurethral resection, erythrocytosis being followed by oncology who presents with cough, as well as not feeling well. Chest x-ray showed right middle lobe atelectasis versus pneumonia. Lab work was positive for leukocytosis, as well as rhinovirus. He was started on Rocephin and azithromycin initially. Yesterday, there was some wheezing noted on his exam, and steroids were added. He was advised to follow-up with his primary care doctor, as well as a retail seasonal specialist, to complete pulmonary function testing. He completed a course of azithromycin. He will require 3 more days of Augmentin. He will also be given 4 more days of prednisone. ALLERGIES Allergies Allergy/AdvReac Type Severity Reaction Status Date / Time No Known Drug Allergies Allergy Verified 08/06/24 08:06 MEDICATIONS Ambulatory Orders Medication Instructions Recorded Confirmed aspirin 81 mg tablet,delayed 81 mg PO BID 05/24/14 08/06/24 release (Aspir-) glipizide 10 mg tablet 5 mg PO DAILY 05/24/14 08/06/24 metformin 1,000 mg tablet 1,000 mg PO BID 05/24/14 08/06/24 atorvastatin 20 mg tablet 20 mg ORAL QPM 09/24/20 08/06/24 insulin glargine 100 unit/mL (3 35 unit subcut DAILY 12/14/23 08/06/24 mL) subcutaneous pen (Lantus Solostar U-100 Insulin) sildenafil 25 mg tablet (Viagra) 100 mg PO HS PRN As Needed Per 12/14/23 08/06/24 Provider Orders tamsulosin 0.4 mg capsule 0.4 mg PO DAILY 12/14/23 08/06/24 lisinopril 40 mg tablet 40 mg PO DAILY 08/06/24 amoxicillin 500 mg-potassium 1 tab PO BID 3 days #6 tabs 08/09/24 clavulanate 125 mg tablet (Augmentin) prednisone 20 mg tablet 40 mg (2 x 20 mg) PO DAILY 4 days 08/09/24 #8 tabs PHYSICAL EXAM AT DISCHARGE General Appearance: positive No acute distress and Alert; negative Anxious Eyes Bilateral: positive Normal inspection, PERRL and EOMI ENT: positive ENT inspection nml, Pharynx nml and No signs of dehydration Neck: positive Nml inspection, Thyroid nml and No JVD Respiratory: positive Chest non-tender, No respiratory distress and Breath sounds nml; negative Rales (mild bibasilar) Cardiovascular: positive Regular rate & rhythm, No murmur and No gallop; negative Tachycardia, Systolic murmur or Diastolic murmur Peripheral Pulses: positive 2+ Abdomen: positive Non-tender, No organomegaly and No distention; negative Guarding, Hepatomegaly or Splenomegaly Back: positive Nml inspection; negative CVA tenderness (R) or CVA tenderness (L) Skin: positive Color nml, No rash, Warm and Dry Extremities: positive Non-tender, Full ROM and No pedal edema Neurologic/Psychiatric: positive Oriented x3 and Mood/affect nml LABS 08/09/24 05:36 08/09/24 05:36 DIAGNOSTIC IMAGING Diagnostic Imaging Results: Final report reviewed QUALITY (Female Hip Fx Only) Was patient sent home on osteoporosis medication?: No FOLLOW UP Follow Up: Follow up with primary care physician. Follow up with retail seasonal specialist. TIME SPENT Time Spent in Discharge (Minutes): 35 Discharge Plan Discharge Patient Disposition: Home, Self Care Condition: Stable Prescriptions: New prednisone 20 mg tablet 40 mg PO DAILY 4 Days Qty: 8 0RF amoxicillin-pot clavulanate [Augmentin] 500-125 mg tablet 1 tab PO BID 3 Days Qty: 6 0RF Continued glipizide 10 MG tablet 5 mg PO DAILY metformin 1,000 MG tablet 1,000 mg PO BID aspirin [Aspir-81] 81 MG tablet,delayed release (DR/EC) 81 mg PO BID atorvastatin 20 MG tablet 20 mg ORAL QPM sildenafil [Viagra] 25 MG tablet 100 mg PO HS PRN (Reason: As Needed Per Provider Orders) tamsulosin 0.4 MG capsule 0.4 mg PO DAILY insulin glargine [Lantus Solostar U-100 Insulin] 100 UNIT/ML insulin pen 35 unit subcut DAILY lisinopril 40 mg tablet 40 mg PO DAILY Activity Restrictions: Activity as Tolerated Diet: Diabetic Health Concerns: You came in because you were feeling short of breath. You were treated for the common cold, a bacterial pneumonia (a lung infection) , and a possible COPD exacerbation. I know you have not been formally diagnosed with this. I would like you to follow up with a lung doctor (retail seasonal specialist), and a primary care doctor to do further testing. I will also send you home with a few more days of steroids and antibiotics. Please return if you are feeling any chest pain, shortness of breath, fevers, chills. Print Language: [place]ian Patient Instructions: Pulmonary Function Tests, Pneumonia Dc Stand Alone Forms: PCP List Follow-up Care: Aryan Albert MD [Primary Care Provider] -"
[2024-08-09 16:38] VITALS: BP 95/65; TEMP 98.1; O2SAT 93
== END 2024-08-09 16:50 | disposition home or self-care (01) | DRG 871 ==
LOC: ED 07:54 → MS2 07:54
PROVIDERS: ADMIT Internal Medicine; ATTEND Internal Medicine
DX: J44.1 Chronic obstructive pulmonary disease with (acute) exacerbation; F17.210 Nicotine dependence, cigarettes, uncomplicated; B34.8 Other viral infections of unspecified site; I10 Essential (primary) hypertension; E87.5 Hyperkalemia; E87.1 Hypo-osmolality and hyponatremia; C67.4 Malignant neoplasm of posterior wall of bladder; R65.20 Severe sepsis without septic shock; R74.8 Abnormal levels of other serum enzymes; J96.01 Acute respiratory failure with hypoxia; Z79.4 Long term (current) use of insulin; J15.9 Unspecified bacterial pneumonia; D75.1 Secondary polycythemia; R00.0 Tachycardia, unspecified; R09.02 Hypoxemia; Z79.84 Long term (current) use of oral hypoglycemic drugs; Z79.82 Long term (current) use of aspirin; J18.9 Pneumonia, unspecified organism; A41.9 Sepsis, unspecified organism; E78.5 Hyperlipidemia, unspecified; G47.30 Sleep apnea, unspecified; J44.0 Chronic obstructive pulmonary disease with (acute) lower respiratory infection; R53.1 Weakness; E11.65 Type 2 diabetes mellitus with hyperglycemia